=== PATIENT | male | born 1980 | race Caucasian/White ===

== ENCOUNTER 2016-08-18 04:11 | Inpatient (IN) | payer SELFPAY ==
[2016-08-18] VITALS (11 sets, daily range): BP systolic 133–164; BP diastolic 73–96; PULSE 80–137; RESP 20–24; TEMP 97.4–100.6; O2SAT 92–97
[~2016-08-18] VITALS: Ht 175.3 cm; Wt 112.0 kg
[~2016-08-18 04:11] MED LIST: ALLEGR; ENVEGA PO; FLUO0.012 TOP
[2016-08-18] MEDS ORDERED: cefTRIAXone INJ 1,000 MG in SODIUM CHLORIDE 0.9% INJ 100 ML IV ONE (04:30)
[2016-08-18] MEDS ORDERED: SODIUM CHLORIDE 0.9% FLUSH 10 ML FLUSH IVF PRN (04:30)
[2016-08-18] MEDS ORDERED: SODIUM CHLOR 0.9% 1000 ML INJ 1,000 ML IV ONE ×2 (04:30→05:30)
[2016-08-18] MEDS ORDERED: AZITHROMYCIN INJ 500 MG in SODIUM CHLOR 0.9% 250 ML INJ 250 ML IV ONE (04:30)
--- NOTE | 2016-08-18 04:37 | PD ---
HPI Chief Complaint: Respiratory Symptoms Time Seen by Provider: 04:16 Travel History International Travel<30 days: No Contact w/Intl Traveler<30days: No Traveled to known affect area: No History of Present Illness HPI The patient is a 35 year old male who presents to the [facility] emergency department with a history of 4 days of cough, congestion, and dyspnea on exertion. The patient reports having a subjective fever. He reports having chest tightness and wheezing. The patient reports that he was diagnosed with COPD 10 years ago. He reports that he's been smoking cigarettes since he was 11 years of age. He reports that he is not currently on any medications as he does not have a primary care doctor or insurance. The patient reports that he continues to smoke one pack of cigarettes per day. The patient also reports that he drinks to 4 packs of beer daily, occasionally liquor. He reports that he has not had an appetite over the last 4 days. He reports that he has not been drinking any alcohol, however he has been increasingly thirsty and drinking a lot of water. He denies having any vomiting but has had nausea. He reports that he is also had diarrhea approximately 2 times per day since yesterday. The patient reports that his cough is productive of yellow sputum. He reports that he feels lightheaded when he walks across the room. The patient denies any history of fever, cough, congestion, neck pain, chest pain, shortness of breath, abdominal pain, vomiting, diarrhea, urinary symptoms, or neurologic symptoms. [facility] Past Medical History Narrative Medical The patient's past medical history is significant for COPD, tobacco abuse, alcohol abuse, history of anxiety disorder, history of bipolar disorder, history of acid reflux and a history of hypertension, history of cardiomegaly. Bipolar Disorder: Yes Anxiety: Yes Depression: Yes COPD: Yes Diminished Hearing: No GERD: Yes Hypertension: Yes Psychiatric: Yes Past Surgical History Narrative Surgical The patient's past surgical history is significant for a right sided hernia repair, appendectomy. Abdominal Surgery: Yes (RIGHT HERNIA REPAIR) Appendectomy: Yes Social History Alcohol Use: Yes (6- BEERS + 2 MIXED DRINKS ) Tobacco Use: Yes (1 PPD) Substance Use: No Allergies-Medications (Allergen,Severity, Reaction): Coded Allergies: Penicillin (Verified Allergy, Severe, UNKNOWN, 08/18/16) Reported Meds & Prescriptions Reported Meds & Active Scripts Active No Active Prescriptions or Reported Medications Review of Systems Except as stated in HPI: all other systems reviewed are Neg General / Constitutional: Positive: Fever Eyes: No: Visual changes HENT: Positive: Lightheadedness, Rhinorrhea, Congestion, No: Headaches Cardiovascular: Positive: Chest Pain or Discomfort (chest tightness), Dyspnea on exertion Respiratory: Positive: Cough, Shortness of Breath Gastrointestinal: Positive: Nausea, Diarrhea, No: Vomiting, Abdominal Pain, Hematemesis, Hematochezia, Constipation, Changes in Bowel Habits, Indigestion, Loss of Appetite Genitourinary: No: Dysuria Musculoskeletal: Positive: Myalgias, No: Pain Skin: No Rash Neurologic: Positive: Dizziness, No: Weakness, Focal Abnormalities, Change in Mentation, Slurred Speech, Sensory Disturbance Psychiatric: No: Depression Endocrine: No: Polydipsia Hematologic/Lymphatic: No: Easy Bruising Physical Exam Narrative General: The patient is a well-developed well-nourished male, slightly short of breath appearing on arrival. The patient is tremulous. Head and Neck exam: Head is normocephalic atraumatic. Eyes: EOMI, pupils are equal round and reactive to light. Nose: Midline septum with pink mucous membranes Mouth: Dentition unremarkable. Moist mucus membranes. Posterior oropharynx is not erythematous. No tonsillar hypertrophy. Uvula midline. Airway patent. Neck: No palpable lymphadenopathy. No nuchal rigidity. No thyromegaly. Cardiovascular: Sinus tachycardia in the 120s to 130s without murmurs, gallops, or rubs. No pulse deficit to the extremities and simultaneous auscultation and palpation of his radial artery. Lungs: Expiratory wheezes are audible throughout bilateral lung cuevas posteriorly and anteriorly. The patient has no conversational dyspnea. The patient en route to this facility was given 125 mg of Solu-Medrol, and albuterol nebulizer treatments 2. Abdomen: Soft, without tenderness to palpation in all 4 quadrants of the abdomen. No guarding, rebound, or rigidity. No tenderness on palpation of McBurney's point , normal bowel sounds are audible. Negative Daingerfield sign. Extremities: No clubbing, cyanosis, or edema. 2+ pulses in all 4 extremities. tenderness on palpation. Back: No costovertebral angle tenderness to palpation. Neurologic Exam: Cranial nerves 2-12 were intact on exam. Strength is 5/5 in all 4 extremities. No sensory deficits noted. Skin Exam: No rash noted. Intact skin that is warm and dry. Data Data Last Documented VS Vital Signs Date Time Temp Pulse Resp B/P Pulse Ox O2 Delivery O2 Flow Rate FiO2 08/18/16 06:33 100.6 08/18/16 04:45 94 Nasal Cannula 2 08/18/16 04:13 137 24 164/96 Orders Complete Blood Count With Diff (08/18/16 04:29) Comprehensive Metabolic Panel (08/18/16 04:29) B-Type Natriuretic Peptide (08/18/16 04:29) Act Partial Throm Time (Ptt) (08/18/16 04:29) Prothrombin Time / Inr (Pt) (08/18/16 04:29) Magnesium (Mg) (08/18/16 04:29) Ckmb (Isoenzyme) Profile (08/18/16 04:29) Troponin I (08/18/16 04:29) Urinalysis - C+S If Indicated (08/18/16 04:29) Influenzae A/B Antigen (08/18/16 04:29) Blood Culture (08/18/16 04:29) Iv Access Insert/Monitor (08/18/16 04:29) Electrocardiogram (08/18/16 04:29) Ecg Monitoring (08/18/16 04:29) Oximetry (08/18/16 04:29) Oxygen Administration (08/18/16 04:29) Chest, Single Ap (08/18/16 04:29) Ct Pulmonary Angiogram (08/18/16 04:29) Sodium Chloride 0.9% Flush (Ns Flush) (08/18/16 04:30) Albuterol-Ipratropium Neb (Duoneb Neb) (08/18/16 04:30) Ceftriaxone Inj (Rocephin Inj) (08/18/16 04:30) Azithromycin Inj (Zithromax Inj) (08/18/16 04:30) Sodium Chlor 0.9% 1000 Ml Inj (Ns 1000 M (08/18/16 04:30) Sputum Culture And Gram Stain (08/18/16 04:34) Lactic Acid Sepsis Protocol (08/18/16 04:37) Lorazepam Inj (Ativan Inj) (08/18/16 04:45) CKMB (08/18/16 04:34) CKMB% (08/18/16 04:34) Sodium Chlor 0.9% 1000 Ml Inj (Ns 1000 M (08/18/16 05:30) Iohexol 350 Inj (Omnipaque 350 Inj) (08/18/16 05:50) Potassium Chloride (Kcl) (08/18/16 06:30) Admit Order (Ed Use Only) (08/18/16 06:24) Admit To Inpatient (08/18/16 ) Vital Signs (Adult) Q4H (08/18/16 06:25) Activity Oob Ad Elizabeth (08/18/16 06:25) Intake + Output DAHLIA.QSHIFT (08/18/16 06:25) Diet Regular Basic (08/18/16 Breakfast) Sodium Chloride 0.9% Flush (Ns Flush) (08/18/16 06:30) Sodium Chloride 0.9% Flush (Ns Flush) (08/18/16 09:00) Acetaminophen (Tylenol) (08/18/16 06:30) Ondansetron Inj (Zofran Inj) (08/18/16 06:30) Naloxone Inj (Narcan Inj) (08/18/16 06:30) Labs Laboratory Tests Test 08/18/16 08/18/16 04:34 04:35 White Blood Count 17.6 TH/MM3 Red Blood Count 4.43 MIL/MM3 Hemoglobin 13.9 GM/DL Hematocrit 40.3 % Mean Corpuscular Volume 91.0 FL Mean Corpuscular Hemoglobin 31.5 PG Mean Corpuscular Hemoglobin 34.6 % Concent Red Cell Distribution Width 12.7 % Platelet Count 200 TH/MM3 Mean Platelet Volume 9.6 FL Neutrophils (%) (Auto) 72.9 % Lymphocytes (%) (Auto) 15.2 % Monocytes (%) (Auto) 11.2 % Eosinophils (%) (Auto) 0.1 % Basophils (%) (Auto) 0.6 % Neutrophils # (Auto) 12.8 TH/MM3 Lymphocytes # (Auto) 2.7 TH/MM3 Monocytes # (Auto) 2.0 TH/MM3 Eosinophils # (Auto) 0.0 TH/MM3 Basophils # (Auto) 0.1 TH/MM3 CBC Comment AUTO DIFF Differential Total Cells 100 Counted Neutrophils % (Manual) 50 % Band Neutrophils % 24 % Lymphocytes % 20 % Monocytes % 6 % Neutrophils # (Manual) 13.0 TH/MM3 Differential Comment FINAL DIFF MANUAL Dohle Bodies PRESENT Platelet Estimate NORMAL Platelet Morphology Comment NORMAL Prothrombin Time 11.2 SEC Prothromb Time International 1.0 RATIO Ratio Activated Partial 30.1 SEC Thromboplast Time Urine Color ORANGE Urine Turbidity CLEAR Urine pH 6.5 Urine Specific [place] 1.027 Urine Protein 100 mg/dL Urine Glucose (UA) NEG mg/dL Urine Ketones 80 mg/dL Urine Occult Blood MOD Urine Nitrite NEG Urine Bilirubin NEG Urine Urobilinogen 8.0 MG/DL Urine Leukocyte Esterase NEG Urine RBC 12 /hpf Urine WBC 4 /hpf Urine Squamous Epithelial <1 /hpf Cells Urine Mucus MOD /lpf Microscopic Urinalysis Comment CULT NOT INDICATED Sodium Level 131 MEQ/L Potassium Level 3.3 MEQ/L Chloride Level 97 MEQ/L Carbon Dioxide Level 25.1 MEQ/L Anion Gap 9 MEQ/L Blood Urea Nitrogen 6 MG/DL Creatinine 0.96 MG/DL Estimat Glomerular Filtration 90 ML/MIN Rate Random Glucose 120 MG/DL Calcium Level 8.9 MG/DL Magnesium Level 2.2 MG/DL Total Bilirubin 1.4 MG/DL Aspartate Amino Transf 29 U/L (AST/SGOT) Alanine Aminotransferase 23 U/L (ALT/SGPT) Alkaline Phosphatase 87 U/L Total Creatine Kinase 589 U/L Creatine Kinase MB 2.5 NG/ML Creatine Kinase MB % 0.4 % Troponin I LESS THAN 0.02 NG/ML B-Type Natriuretic Peptide 19 PG/ML Total Protein 8.0 GM/DL Albumin 3.4 GM/DL Lactic Acid Level 1.3 mmol/L MDM Medical Decision Making Medical Screen Exam Complete: Yes Emergency Medical Condition: Yes Medical Record Reviewed: Yes Interpretation(s) Last Impressions Chest X-Ray 08/18/16428 Signed Impressions: Service Date/Time: Thursday, August 18, 2016 04:43 - CONCLUSION: No acute disease. Jesse Cerna Jr., MD CT Angiography [id number]/18/16428 Signed Impressions: Service Date/Time: Thursday, August 18, 2016 05:45 - CONCLUSION: 1. There is weak opacification of the pulmonary arteries with the contrast bolus. This limits the evaluation of the smaller branches. No pulmonary emboli seen. 2. Tree in bud type appearance involving the upper lobes bilaterally consistent with an infectious etiology. 3. 5 mm pulmonary nodule within the right upper lobe. Current guidelines suggest a repeat CT of the thorax in 12 months to document stability. Jesse Cerna Jr., MD Differential Diagnosis COPD exacerbation, versus pulmonary embolism, versus pneumonia, versus influenza , versus alcohol withdrawal syndrome, versus anxiety disorder Narrative Course During the course of the patients emergency department visit, the patients history, examination, and differential diagnosis were reviewed with the patient. The patient had IV access obtained and blood work sent for analysis. The patient was placed on a qa consultant with oximetry and blood pressure monitoring. An EKG was done on arrival. The patient's EKG shows a sinus tachycardia with a heart rate of 127, QRS duration is 90 ms, QTC 410 ms, nonspecific T-wave abnormalities, no acute ST segment elevation or depression. A chest x-ray has been. The patient's O2 saturation on room air is noted to be 92%. The patient was placed on 2 L supplemental nasal cannula oxygen. The patient was initially provided normal saline 1 L IV fluid bolus, Ativan 1 mg IV, Rocephin 1 g IV, Zithromax 500 IV. The patient will be given a DuoNeb 2. The patients laboratory studies were reviewed and remarkable for a white count of 17.6, hemoglobin 13.9, platelets 200 with 72.9 neutrophils, lymphocytes 11.2 , CMP is remarkable for sodium of 131, potassium 3.3 which will be supplemented orally, BUN 6, glucose 120, total bilirubin 1.4. CPK 589 with an MB percent 0.4 , troponin I less than 0.02, BNP 19, lactic acid is 1.3, PT 11.2, PTT 30.1, urinalysis shows 100 protein 80 ketones moderate occult blood 8 urobilinogen, RBCs 12. Radiology studies were reviewed and remarkable for a chest x-ray that shows no acute abnormality. CTA to rule out PE shows that there is weak opacification of the pulmonary arteries with the contrast bolus. This limits the evaluation of the smaller branches. No pulmonary emboli are seen, tree in bud type appearance involving the upper lobes bilaterally consistent with an infectious etiology, 5 mm pulmonary nodule within the right upper lobe. Current guidelines suggest repeating a CT scan of the thorax and 12 months to document stability. The patient will be admitted to the hospital for continued evaluation and treatment of his COPD exacerbation. The patients results were discussed with the patient, including the plan of care. I explained that further testing and/ or monitoring is indicated based on the patients history, examination, and/ or laboratory findings. Therefore, I recommended admission for additional evaluation. The patient expressed understanding and was agreeable with this plan. The patient was admitted to the hospital in stable condition and [facility] Sepsis Criteria SIRS Criteria (2 or more): Heart rate over 90, RR > 20 or PaCO2 < 32 Physician Communication Physician Communication The patient's case was discussed with Dr. Davis he did agree to admit the patient for further evaluation and treatment at this time. Diagnosis Primary Impression: COPD exacerbation Admitting Information Admitting Physician Requests: Admit Scripts No Active Prescriptions or Reported Meds America Cintron MD August 18, 2016 04:37
[2016-08-18] MEDS ORDERED: LORazepam 2 MG/ML VIAL IV PUSH ONE (04:45)
[2016-08-18 04:54] LABS: AUTOMATED NEUTROPHIL # 12.8 TH/MM3 (1.8-7.7); BASOPHIL # 0.1 TH/MM3 (0-0.2); BASOPHIL % 0.6 % (0.0-2.0); EOSINOPHIL % 0.1 % (0.0-4.0); HEMATOCRIT 40.3 % (39.0-51.0); LYMPH % 15.2 % (9.0-44.0); LYMPHOCYTE # 2.7 TH/MM3 (1.0-4.8); MEAN CORPUSCULAR HEMOGLOBIN 31.5 PG (27.0-34.0); MEAN CORPUSCULAR HGB CONC 34.6 % (32.0-36.0); MONO % 11.2 % (0.0-8.0); NEUT % 72.9 % (16.0-70.0); PLATELET COUNT 200 TH/MM3 (150-450); RED BLOOD COUNT 4.43 MIL/MM3 (4.50-5.90); RED CELL DISTRIBUTION WIDTH 12.7 % (11.6-17.2); WHITE BLOOD COUNT 17.6 TH/MM3 (4.0-11.0)
[2016-08-18 04:56] LABS: HEMO FLAGS AUTO DIFF
[2016-08-18 04:59] LABS: BLOOD, URINE MOD (NEG); COMMENT (UR) CULT NOT INDICATED; CULTURE IF INDICATED CULT NOT INDICATED; GLUCOSE,URINE NEG (NEG); KETONE, URINE 80 mg/dL (NEG); MUCUS URINE MOD /lpf (OCC); NITRITE,URINE NEG (NEG); PH, URINE 6.5 (5.0-8.5); SQUAMOUS EPITHELIAL CELL URINE <1 /hpf (0-5); URINE COLOR ORANGE (YELLW/STRAW)
[2016-08-18] MEDS: RESP: ALBUTEROL 2.5 MG/IPRATROPIUM 0.5 MG NEB (SCH) INH ×5 (05:02→20:50)
[2016-08-18 05:05] LABS: APTT (PATIENT) 30.1 SEC (24.3-30.1); PROTHROMBIN TIME - PATIENT 11.2 SEC (9.8-11.6)
[2016-08-18 05:07] LABS: ALT (GPT) 23 U/L (12-78); ANION GAP 9 MEQ/L (5-15); AST (GOT) 29 U/L (15-37); BICARBONATE 25.1 MEQ/L (21.0-32.0); BLOOD UREA NITROGEN 6 MG/DL (7-18); CHLORIDE 97 MEQ/L (98-107); GLOMERULAR FILTRATION RATE 90 ML/MIN (>89); MAGNESIUM 2.2 MG/DL (1.5-2.5); POTASSIUM 3.3 MEQ/L (3.5-5.1); SODIUM (NA) 131 MEQ/L (136-145)
[2016-08-18 05:11] LABS: ALKALINE PHOSPHATASE 87 U/L (45-117); CREATINE KINASE 589 U/L (39-308); TOTAL BILIRUBIN ADULT 1.4 MG/DL (0.2-1.0)
--- NOTE | 2016-08-18 05:11 | RADRPT ---
EXAM DATE/TIME: 08/18/2016 04:43 [facility] COMPARISON: CHEST SINGLE AP, August 25, 2009, 19:04. INDICATIONS : Short of breath. MEDICAL HISTORY : None. SURGICAL HISTORY : None. ENCOUNTER: Initial ACUITY: 1 day PAIN SCORE: 0/10 LOCATION: Bilateral chest FINDINGS: 2 portable frontal views of the chest show the lungs to be clear. Heart is at the upper limits of nor mal in terms of size. No infiltrates or effusions. Scoliotic spine. CONCLUSION: No acute disease. Jesse Cerna Jr., MD on August 18, 2016 at 5:07 Board Certified Radiologist. This report was verified electronically.
[2016-08-18 05:23] LABS: CKMB 2.5 NG/ML (0.5-3.6)
[2016-08-18] MEDS ORDERED: IOHEXOL 350 MG/ML 10 ML VIAL (for RAD DIAG) IV ONE (05:50)
[2016-08-18 06:00] LABS: BANDS 24 % (0-6); DOHLE BODIES PRESENT (NONE SEEN); PLATELET ESTIMATE SMEAR NORMAL (NORMAL); PLATELET MORPHOLOGY NORMAL (NORMAL); POLYS (SEG NEUTROPHILS) 50 % (16-70); SCAN/DIFF FINAL DIFF MANUAL; WBC DIFF SAMPLE 100
--- NOTE | 2016-08-18 06:03 | RADRPT ---
EXAM DATE/TIME: 08/18/2016 05:45 [facility] COMPARISON: No previous studies available for comparison. INDICATIONS : Shortness of breath with cough and chest tightness. IV CONTRAST: 73 cc Omnipaque 350 (iohexol) IV RADIATION DOSE: 23.56 CTDIvol (mGy) MEDICAL HISTORY : Hypertension. Chronic obstructive pulmonary disease. Gastroesophageal reflux disease. SURGICAL HISTORY : Right hernia repair. ENCOUNTER: Initial ACUITY: 4 - 6 days PAIN SCALE: 6/10 LOCATION: Bilateral chest TECHNIQUE: Volumetric scanning of the chest was performed using a pulmonary embolism protocol MIP images were re constructed. Using automated exposure control and adjustment of the mA and/or kV according to patien t size, radiation dose was kept as low as reasonably achievable to obtain optimal diagnostic quality images. FINDINGS: PULMONARY ARTERIES: Weak opacification of the pulmonary arteries. This limits the sensitivity of the more peripheral bran ches. No filling defects identified to suggest pulmonary emboli. LUNGS: Tree in bud appearance involving the upper lobes bilaterally. No bronchiectasis. 5 mm smoothly margin ated pulmonary nodule within the right upper lobe. PLEURAE: There is no pleural thickening or pleural effusion. MEDIASTINUM: There is good visualization of the great vessels of the middle mediastinum. No evidence of mediastin al or hilar adenopathy/mass. MUSCULOSKELETAL: Within normal limits for patient age. MISCELLANEOUS: The visualized upper abdominal organs demonstrate no acute abnormality. CONCLUSION: 1. There is weak opacification of the pulmonary arteries with the contrast bolus. This limits the vesta luation of the smaller branches. No pulmonary emboli seen. 2. Tree in bud type appearance involving the upper lobes bilaterally consistent with an infectious et iology. 3. 5 mm pulmonary nodule within the right upper lobe. Current guidelines suggest a repeat CT of the t horax in 12 months to document stability. Jesse Cerna Jr., MD on August 18, 2016 at 5:58 Board Certified Radiologist. This report was verified electronically.
[2016-08-18] MEDS ORDERED: ONDANSETRON HCL 4 MG/2 ML VIAL IVP PRN (06:30)
[2016-08-18] MEDS ORDERED: POTASSIUM CHLORIDE 20 MEQ CONTROLLED RELEASE TAB PO ONE (06:30)
[2016-08-18] MEDS ORDERED: NALOXONE HCL 0.4 MG/ML AMP IV PRN (06:30)
[2016-08-18] MEDS ORDERED: SODIUM CHLORIDE 0.9% FLUSH 10 ML FLUSH IV FLUSH PRN (06:30)
[2016-08-18] MEDS: ACETAMINOPHEN 325 MG TAB PO PRN (06:35)
--- NOTE | 2016-08-18 08:49 | HHI.HP ---
[facility] Service [facility] Primary Care Physician No Primary Care Physician Admission Diagnosis COPD exacerbation Diagnoses: (1) COPD exacerbation Diagnosis: Principal (2) Hypokalemia (3) Hyponatremia (4) Leukocytosis (5) Tobacco abuse (6) GERD (gastroesophageal reflux disease) (7) Pulmonary nodule, right (8) Alcohol abuse (9) Sepsis Chief Complaint: Cough, dyspnea Travel History International Travel<30 Days: No Contact w/Intl Traveler <30 Da: No Traveled to Known Affected Are: No Sepsis Criteria SIRS Criteria (2 or more): RR > 20 or PaCO2 < 32, WBC > 51973, < 4000 or > 10 % bands Sepsis Criteria (SIRS+source): Infect source susp/known Criteria Outcome: Meets sepsis criteria History of Present Illness The patient is a 35-year-old male who presented to the emergency department with 3-4 days of worsening dyspnea. He states that he got to the point where walking down the [place] to the bathroom made him feel like he could not catch his breath. He felt like his "suffocating". Denies chest pain, but does have some rib cage pain from coughing and labored breathing. States that the treatment he received in the ER helped significantly. He does still feel short of breath. He has been having fever, chills, night sweats. He has had diarrhea over the past couple days. He was diagnosed with COPD about 10 years ago, but has not followed up and has not been on any medications. He does not take medications for his blood pressure. He stopped taking psychiatric medications about a year ago and states "I feel better than I ever have". Review of Systems Constitutional: COMPLAINS OF: Fever, Chills, Night Sweats Eyes: DENIES: Blurred vision, Vision loss Ears, nose, mouth, throat: DENIES: Hearing loss Respiratory: COMPLAINS OF: Cough, Wheezing, Sputum production, Shortness of breath Cardiovascular: COMPLAINS OF: Dyspnea on Exertion, Lower Extremity Edema, DENIES: Chest pain, Palpitations Gastrointestinal: COMPLAINS OF: Diarrhea, DENIES: Abdominal pain, Constipation , Nausea, Vomiting Genitourinary: DENIES: Urinary frequency, Urinary incontinence, Urgency, Hematuria, Dysuria, Nocturia Musculoskeletal: DENIES: Joint pain, Muscle aches Integumentary: DENIES: Pruritus, Rash Hematologic/lymphatic: DENIES: Bruising Neurologic: DENIES: Headache Past Family Social History Past Medical History COPD Hypertension GERD Anxiety/depression Bipolar disorder Past Surgical History Right inguinal hernia repair Reported Medications None Allergies: Coded Allergies: Penicillin (Verified Allergy, Severe, UNKNOWN, 08/18/16) Family History Mother has heart disease. Hypertension Social History Smokes one pack per day and has done so since age 11. Drinks 6 beers and 2 mixed drinks per day. Denies illicit drug use in the past few years. Has remote history of cocaine use. Denies IV drug abuse. Physical Exam Vital Signs Vital Signs Date Time Temp Pulse Resp B/P Pulse Ox O2 Delivery O2 Flow Rate FiO2 08/18/16 07:50 99.6 112 22 159/74 94 Nasal Cannula 3 08/18/16 07:50 22 08/18/16 06:46 112 22 159/73 95 Nasal Cannula 2 08/18/16 06:33 100.6 08/18/16 04:45 94 Nasal Cannula 2 08/18/16 04:45 92 Room Air 08/18/16 04:13 99.0 137 24 164/96 93 Physical Exam GENERAL: Obese male in no acute distress. HEENT: Normocephalic, atraumatic. Pupils equal, round and reactive. Extraocular movements intact. No scleral icterus. No injection or drainage. Oropharynx is clear. Mucous membranes are moist. CARDIOVASCULAR: Regular rate and rhythm without murmurs, gallops, or rubs. RESPIRATORY: Diffuse wheeze. Breathing is somewhat labored. GASTROINTESTINAL: Abdomen soft, non-tender, nondistended. EXTREMITIES: No lower extremity edema. No calf tenderness. PSYCH: Alert and oriented x 3. Laboratory Laboratory Tests Test 08/18/16 08/18/16 04:34 04:35 White Blood Count 17.6 Red Blood Count 4.43 Hemoglobin 13.9 Hematocrit 40.3 Mean Corpuscular Volume 91.0 Mean Corpuscular Hemoglobin 31.5 Mean Corpuscular Hemoglobin 34.6 Concent Red Cell Distribution Width 12.7 Platelet Count 200 Mean Platelet Volume 9.6 Neutrophils (%) (Auto) 72.9 Lymphocytes (%) (Auto) 15.2 Monocytes (%) (Auto) 11.2 Eosinophils (%) (Auto) 0.1 Basophils (%) (Auto) 0.6 Neutrophils # (Auto) 12.8 Lymphocytes # (Auto) 2.7 Monocytes # (Auto) 2.0 Eosinophils # (Auto) 0.0 Basophils # (Auto) 0.1 CBC Comment AUTO DIFF Differential Total Cells 100 Counted Neutrophils % (Manual) 50 Band Neutrophils % 24 Lymphocytes % 20 Monocytes % 6 Neutrophils # (Manual) 13.0 Differential Comment FINAL DIFF MANUAL Dohle Bodies PRESENT Platelet Estimate NORMAL Platelet Morphology Comment NORMAL Prothrombin Time 11.2 Prothromb Time International 1.0 Ratio Activated Partial 30.1 Thromboplast Time Urine Color ORANGE Urine Turbidity CLEAR Urine pH 6.5 Urine Specific [place] 1.027 Urine Protein 100 Urine Glucose (UA) NEG Urine Ketones 80 Urine Occult Blood MOD Urine Nitrite NEG Urine Bilirubin NEG Urine Urobilinogen 8.0 Urine Leukocyte Esterase NEG Urine RBC 12 Urine WBC 4 Urine Squamous Epithelial <1 Cells Urine Mucus MOD Microscopic Urinalysis Comment CULT NOT INDICATED Sodium Level 131 Potassium Level 3.3 Chloride Level 97 Carbon Dioxide Level 25.1 Anion Gap 9 Blood Urea Nitrogen 6 Creatinine 0.96 Estimat Glomerular Filtration 90 Rate Random Glucose 120 Calcium Level 8.9 Magnesium Level 2.2 Total Bilirubin 1.4 Aspartate Amino Transf 29 (AST/SGOT) Alanine Aminotransferase 23 (ALT/SGPT) Alkaline Phosphatase 87 Total Creatine Kinase 589 Creatine Kinase MB 2.5 Creatine Kinase MB % 0.4 Troponin I LESS THAN 0.02 B-Type Natriuretic Peptide 19 Total Protein 8.0 Albumin 3.4 Lactic Acid Level 1.3 Date/Time Procedure Status Source Growth 08/18/16 04:39 Aerobic Blood Culture Received Blood Peripheral Pending 08/18/16 04:39 Anaerobic Blood Culture Received Blood Peripheral Pending 08/18/16 04:34 Influenza Types A,B Antigen (LUISA) - Final Complete Nasal Aspirate NEGATIVE FOR FLU A AND B ANTIGEN.... 08/18/16 04:34 Gram Stain - Final Resulted Sputum Expectorated Sputum 08/18/16 04:34 Sputum Culture Resulted Sputum Expectorated Sputum Pending Result Diagram: 08/18/16 0434 08/18/16 0434 Imaging Last Impressions Chest X-Ray 08/18/16 0429 Signed Impressions: Service Date/Time: Thursday, August 18, 2016 04:43 - CONCLUSION: No acute disease. Jesse Cerna Jr., MD CT Angiography 08/18/16 0429 Signed Impressions: Service Date/Time: Thursday, August 18, 2016 05:45 - CONCLUSION: 1. There is weak opacification of the pulmonary arteries with the contrast bolus. This limits the evaluation of the smaller branches. No pulmonary emboli seen. 2. Tree in bud type appearance involving the upper lobes bilaterally consistent with an infectious etiology. 3. 5 mm pulmonary nodule within the right upper lobe. Current guidelines suggest a repeat CT of the thorax in 12 months to document stability. Jesse Cerna Jr., MD Assessment and Plan Assessment and Plan 1. COPD exacerbation: Continue steroids, bronchodilators, supplemental oxygen. Consult pulmonology. 2. Pulmonary nodule seen on CT: Radiology recommends follow-up CT in one year. 3. Hypertension: Not currently on medications. Vasotec as needed. Start lisinopril. 4. Tobacco abuse: Counseled to quit smoking. 5. Alcohol abuse: Patient counseled. Last drink was about 4 days ago. Monitor for withdrawal symptoms. 6. DVT prophylaxis: Lovenox. 7. Sepsis: Meets criteria with tachypnea, tachycardia, leukocytosis. Source is respiratory. Continue antibiotics, IV fluids. 8. Cardiomegaly: Patient reports being told in the past that his heart was enlarged. He has multiple risk factors for cardiac disease including smoking, family history, obesity, uncontrolled hypertension, and reported elevated cholesterol. He has been having dyspnea on exertion for the past few years, and it has worsened significantly in the past week. Check echocardiogram. Physician Certification 2 Midnight Certification Type: Admission for Inpatient Services Order for Inpatient Services The services are ordered in accordance with Medicare regulations or non- Medicare payer requirements, as applicable. In the case of services not specified as inpatient-only, they are appropriately provided as inpatient services in accordance with the 2-midnight benchmark. Estimated LOS (days): 3 days is the estimated time the patient will need to remain in the hospital, assuming treatment plan goals are met and no additional complications. Post-Hospital Plan: Fernando Klein MD August 18, 2016 08:49
[2016-08-18] MEDS ORDERED: RESP: ALBUTEROL 2.5 MG/3 ML NEB (PRN) INH (09:15)
[2016-08-18] MEDS ORDERED: ENALAPRILAT 1.25 MG/ML VIAL IV PUSH PRN (09:15)
[2016-08-18] MEDS ORDERED: LORazepam 2 MG TAB PO PRN (09:30)
[2016-08-18] MEDS ORDERED: FLUMAZENIL 0.5 MG/5 ML VIAL IV PUSH PRN (09:30)
[2016-08-18] MEDS ORDERED: LORazepam 2 MG/ML VIAL IV PUSH PRN ×3 (09:30)
[2016-08-18] MEDS: SODIUM CHLORIDE 0.9% FLUSH 10 ML FLUSH IV FLUSH SCH ×2 (09:46→21:00)
[2016-08-18] MEDS: LISINOPRIL 10 MG TAB PO SCH (09:48)
[2016-08-18] MEDS: ENOXAPARIN SODIUM 40 MG/0.4 ML SYRINGE SQ SCH (09:48)
[2016-08-18] MEDS: methylPREDNISolone SOD SUCC 125 MG/2 ML VIAL IVP SCH ×3 (09:49→23:25)
[2016-08-18] MEDS: NS + KCL 20 MEQ INJ 1,000 ML IV SCH ×2 (09:55→23:26)
[2016-08-18] MEDS ORDERED: PROPOFOL 200 MG/20 ML AMP IV ONE (12:00)
--- NOTE | 2016-08-18 15:38 | EC ---
Study Study Date:08/18/2016 STUDY CONCLUSIONS SUMMARY LEFT VENTRICLE: The cavity size was normal. Wall thickness was normal. Systolic function was normal. The estimated ejection fraction was in the range of 55% to 60%. Wall motion was normal; there were no regional wall motion abnormalities. If LV function is below 40, please consider prescribing an ACEI or ARB or document rationale for non-use. PROCEDURE DATA STUDY STATUS: Elective. Procedure: Transthoracic echocardiography. Image quality was good. Scanning was performed from the parasternal, apical, and subcostal acoustic windows. Study completion: The patient tolerated the procedure well. Transthoracic echocardiography. M-mode, complete 2D, complete spectral Doppler, and color Doppler. Patient status: Inpatient. CARDIAC ANATOMY LEFT VENTRICLE: The cavity size was normal. Wall thickness was normal. Systolic function was normal. The estimated ejection fraction was in the range of 55% to 60%. Wall motion was normal; there were no regional wall motion abnormalities. AORTIC VALVE: Trileaflet; normal thickness leaflets. Doppler: Transvalvular velocity was within the normal range. There was no stenosis. No regurgitation. Peak gradient: 13mm Hg (S). AORTA: Aortic root: The aortic root was normal in size. MITRAL VALVE: Structurally normal valve. Doppler: Transvalvular velocity was within the normal range. There was no evidence for stenosis. No regurgitation. Peak gradient: 3mm Hg (D). LEFT ATRIUM: The atrium was normal in size. RIGHT VENTRICLE: The cavity size was normal. Wall thickness was normal. PULMONIC VALVE: Doppler: Transvalvular velocity was within the normal range. There was no evidence for stenosis. No regurgitation. TRICUSPID VALVE: Structurally normal valve. Doppler: Transvalvular velocity was within the normal range. No regurgitation. PULMONARY ARTERY: The main pulmonary artery was normal-sized. Systolic pressure was within the normal range. RIGHT ATRIUM: The atrium was normal in size. PERICARDIUM: There was no pericardial effusion. SYSTEMIC VEINS: Inferior vena cava: The vessel was normal in size. BASIC MEASUREMENTS ADULT Normal Left ventricle LV internal dimension, ED, chordal level, 51.9 mm 43-52 PLAX LV internal dimension, ES, chordal level, *38.6 mm 23-38 PLAX Fractional shortening, chordal level, PLAX *26 % >29 LV posterior wall thickness, ED 8.59 mm IVS/LVPW ratio, ED 1.26 <1.3 Ventricular septum Septal thickness, ED 10.8 mm Left atrium Anterior-posterior dimension 32 mm Right ventricle RV internal dimension, ED, PLAX 24.7 mm 19-38 DOPPLER MEASUREMENTS ADULT Normal Aortic valve Peak velocity, S 182 cm/s Peak gradient, S 13 mm Hg Mitral valve Peak E-wave velocity 88.8 cm/s Peak A-wave velocity 102 cm/s Peak gradient, D 3 mm Hg Peak E/A ratio 0.9 Tricuspid valve Regurgitant peak velocity 182 cm/s Peak RV-RA gradient, S 13 mm Hg Maximal regurgitant velocity 182 cm/s LEGEND: Mean values are shown as u=mean value. Asterisk (*) espinoza values outside specified normal range. Amended Ramona Sepulveda [id number]
--- NOTE | 2016-08-18 15:51 | EKG ---
Date Performed: 08/18/2016 Time Performed: 04:31:45 PTAGE: 35 years EKG: SINUS TACHYCARDIA NONSPECIFIC T-WAVE ABNORMALITY Compared to prior tracing no significant c hange ABNORMAL RHYTHM ECG INTERPRETATION BASED ON A DEFAULT AGE OF 40 YEARS PREVIOUS TRACING : 08/25/2009 19.30 DOCTOR: Milton Hernandez Interpretating Date/Time 08/18/2016 15:47:01
[2016-08-18] MEDS: LORazepam 2 MG/ML VIAL IV PUSH PRN (23:27)
--- NOTE | 2016-08-18 23:58 | MB ---
cc: VitoANALILIA BARNETT DATE OF : [birth year] DATE OF CONSULTATION: 08/18/2016 REASON FOR CONSULTATION: Respiratory distress and COPD. HISTORY OF PRESENT ILLNESS: This is a 35 year-old white male who has had a history of chronic cough and wheezing, has been experiencing increasing shortness of breath over the past 4-5 days. The patient apparently was having shortness of breath with minimal activity and recently traveled from distant, and was running some low grade fevers. He was also having coughing spells and chest congestion with wheezing. Since yesterday, the patient's symptoms have worsened. He could not catch his breath at all and almost passed out on getting to the bathroom on two occasions, and thus 911 was called and the patient was brought to the emergency room where he had a chest x-ray followed by a CT scan. He was subsequently admitted with a diagnosis of sepsis and pneumonia. The patient's O2 saturation had dropped into the 80s. He was placed on oxygen by nasal cannula at [address] scan of the chest showed a 3.5 millimeter pulmonary nodule in the right upper lobe as well as tree-in-bud appearance involving the upper lobes bilaterally suggesting chronic disease with bronchiectasis. He has been diaphoretic and complains of wheezing and chest tightness but denies nausea, vomiting or aspiration. HABITS The patient smokes half to one-pack per day and has done so for over 25 years. No significant alcohol. No illicit drug use. The patient has had no other major medical illnesses. PAST HISTORY 1. History for hypertension 2. Gastroesophageal reflux 3. Bipolar disorder. 4. Right inguinal hernia repair. ALLERGIES PENICILLIN. FAMILY HISTORY Significant for heart disease in his mother. REVIEW OF SYSTEMS: The patient has had some weight gain. He has dizziness, postnasal drip, hoarseness and wheezing. He has epigastric distress. No nausea, vomiting. There is no urinary symptoms, leg or calf muscle pain. He does have some joint pain of the extremities. No skin lesions. The remainder of the review of systems is negative. PHYSICAL EXAMINATION This is a moderately overweight male in mild distress. VITAL SIGNS: Blood pressure 130/78, pulse 88, respirations of 18, temperature 98. HEENT: Normocephalic. Pupils reactive. Tongue is moist. Nasal mucosa erythematous. Throat is injected. Neck: Supple. No venous distension. Trachea midline. No bruits. Chest: Equal movements with distant breath sounds with wheezes throughout both lung cuevas. Prolonged expirations. Heart: The heart sounds are irregular, no S2. No murmur. No S3. Abdomen: Soft, benign. No masses, no organomegaly or tenderness. The bowel sounds are active. Extremities: No edema Reflexes are 1+ with no gross motor deficits. Cranial nerves grossly intact. Rectal: Exam is deferred. IMPRESSION 1. Acute respiratory distress 2. History of chronic bronchitis 3. Asthma 4. Possible atypical infections like AFB or fungal disease 5. Poss Sleep Apnea PLAN The patient will continue with present medications and Rocephin with Zithromax . Cont DuoNeb solution with a nebulizer q.i.d., continue with inhaled steroids. He was also advised to get pulmonary function study . Rpt Chest X ray and Sputum for AFB and Gram stain. May need Bronchoscopy if not improved Thank you for the consultation. MD GUERLINE Rendon/HEMA /11:01 PM /11:34 PM TIERRA
[2016-08-19] VITALS (10 sets, daily range): BP systolic 129–143; BP diastolic 71–86; PULSE 87–110; RESP 18–20; TEMP 96.3–98.6; O2SAT 91–96
[2016-08-19] MEDS: BENZONATATE 100 MG CAP PO PRN ×2 (00:57→21:54)
[2016-08-19] MEDS ORDERED: AZITHROMYCIN INJ 500 MG in SODIUM CHLOR 0.9% 250 ML INJ 250 ML IV SCH (05:00)
[2016-08-19] MEDS: cefTRIAXone INJ 1,000 MG in SODIUM CHLORIDE 0.9% INJ 100 ML IV SCH (05:23)
[2016-08-19] MEDS: LORazepam 2 MG/ML VIAL IV PUSH PRN ×2 (05:25→14:30)
[2016-08-19] MEDS: methylPREDNISolone SOD SUCC 125 MG/2 ML VIAL IVP SCH (05:25)
[2016-08-19] MEDS: RESP: ALBUTEROL 2.5 MG/IPRATROPIUM 0.5 MG NEB (SCH) INH ×3 (05:35→15:20)
[2016-08-19] MEDS: SODIUM CHLORIDE 0.9% FLUSH 10 ML FLUSH IV FLUSH SCH ×2 (07:41→21:00)
[2016-08-19] MEDS: LISINOPRIL 10 MG TAB PO SCH (07:42)
[2016-08-19 07:59] LABS: AUTOMATED NEUTROPHIL # 18.8 TH/MM3 (1.8-7.7); BASOPHIL % 0.2 % (0.0-2.0); HEMATOCRIT 39.5 % (39.0-51.0); LYMPH % 5.1 % (9.0-44.0); MEAN CELL VOLUME 92.8 FL (80.0-100.0); MEAN CORPUSCULAR HEMOGLOBIN 31.8 PG (27.0-34.0); MEAN CORPUSCULAR HGB CONC 34.2 % (32.0-36.0); MONO % 3.1 % (0.0-8.0); NEUT % 91.6 % (16.0-70.0); PLATELET COUNT 217 TH/MM3 (150-450); RED BLOOD COUNT 4.26 MIL/MM3 (4.50-5.90); RED CELL DISTRIBUTION WIDTH 12.4 % (11.6-17.2); WHITE BLOOD COUNT 20.6 TH/MM3 (4.0-11.0)
[2016-08-19 08:10] LABS: HEMO FLAGS AUTO DIFF
--- NOTE | 2016-08-19 08:12 | HHI.PR ---
Subjective Remarks Follow up shortness of breath. Patient seen and examined by myself and Dr. Villegas. Patient lying in bed, still complaints of shortness of breath. On 2 L NC. Patient does admit to diarrhea x 4 days now, states he thinks it happens each time he eats. Denies any recent chills, shortness of breath, nausea or vomiting. Patient expressed concern regarding homosexual lifestyle, unprotected sex and any possibility of obtaining HIV and hepatitis profile, states he has not been checked since 2004. Denies being sexually active at this time, last encounter was 2 months ago. Objective Vitals Vital Signs Date Time Temp Pulse Resp B/P Pulse Ox O2 Delivery O2 Flow Rate FiO2 08/19/16 07:43 97.0 110 20 132/78 91 08/19/16 07:29 93 Nasal Cannula 3.00 08/19/16 05:35 96 Nasal Cannula 3.00 08/19/16 04:15 96.3 88 20 129/84 96 08/19/16 00:00 96.8 87 20 134/82 96 08/18/16 20:00 97.4 80 20 133/73 95 08/18/16 16:00 97.6 92 24 157/79 97 08/18/16 15:18 94 Nasal Cannula 3.00 08/18/16 12:00 97.7 102 20 140/81 94 08/18/16 11:45 95 Nasal Cannula 3.00 08/18/16 08:30 97.9 100 22 139/76 95 I/O 08/18/16 08/18/16 08/18/16 08/19/16 08/19/16 08/19/16 07:00 15:00 23:00 07:00 15:00 23:00 Intake Total 1560 ml 480 ml Output Total 650 ml 675 ml Balance 1560 ml -170 ml -675 ml Intake Oral 1560 ml 480 ml Output Urine Total 650 ml 675 ml # Voids 3 Result Diagram: 08/18/16 0434 08/18/16433 Imaging Last Impressions Chest X-Ray 08/18/16428 Signed Impressions: Service Date/Time: Thursday, August 18, 2016 04:43 - CONCLUSION: No acute disease. Jesse Cerna Jr., MD CT Angiography 08/18/16428 Signed Impressions: Service Date/Time: Thursday, August 18, 2016 05:45 - CONCLUSION: 1. There is weak opacification of the pulmonary arteries with the contrast bolus. This limits the evaluation of the smaller branches. No pulmonary emboli seen. 2. Tree in bud type appearance involving the upper lobes bilaterally consistent with an infectious etiology. 3. 5 mm pulmonary nodule within the right upper lobe. Current guidelines suggest a repeat CT of the thorax in 12 months to document stability. Jesse Cerna Jr., MD Objective Remarks GENERAL: Well-nourished, well-developed patient, lying in bed short of breath on supplemental oxygen. SKIN: Warm and dry. No rash. HEAD: Normocephalic. Atraumatic. EYES: Pupils equal and round. No scleral icterus. No injection or drainage. ENT: No nasal bleeding or discharge. Mucous membranes pink and moist. NECK: Supple. Trachea midline. CARDIOVASCULAR: Regular rate and rhythm. S1, S2 noted. No murmur appreciated. RESPIRATORY: No accessory muscle use. Expiratory wheezing noted throughout anterior and posterior upper and lower lobes. Breath sounds equal bilaterally. GASTROINTESTINAL: Abdomen soft, non-tender, nondistended. Normoactive bowel sounds x4. MUSCULOSKELETAL: No obvious deformities. Extremities without clubbing, cyanosis , or edema. NEUROLOGICAL: Awake and alert. No obvious cranial nerve deficits. Motor grossly within normal limits. 5/5 muscle strength in bilateral upper and lower extremities. Normal speech. PSYCHIATRIC: Appropriate mood and affect; insight and judgment normal. A/P Assessment and Plan Mr. Fragoso is a 35-year-old male with a known history of COPD, significant smoking history, alcohol abuse and hypertension who presented to the ED with complaints of ongoing shortness of breath x 3 days. Meets sepsis criteria with presence of tachycardia, tachypnea and leukocytosis. Dyspnea likely secondary to COPD exacerbation Possibility of PCP or HIV secondary to history of homosexual activity Diarrhea x 4 days - WBC 17.6, awaiting today's 08/19 lab. - Chest x-ray reviewed by me, no acute disease. - Continue supplemental oxygen. - Pulmonology following, appreciate input. - Decrease methylprednisolone 40 mg IV Q6hr. - Continue DuoNebs. - Continue Azithromycin 500 mg IV Q24hr and Rocephin 1 g IV Q24hr. - Start Flagyl 500 mg IV Q8hr. - Consult ID, appreciate input. - Send stool studies including c. difficile and giardia. - Check HIV and Hepatitis profile. Pulmonary nodule, right upper lobe - CT Angiography reviewed by me, weak opacification of the pulmonary arteries with the contrast bolus. This limits the evaluation of the smaller branches. No pulmonary emboli seen. Tree in bud type appearance involving the upper lobes bilaterally consistent with an infectious etiology. 3. 5 mm pulmonary nodule within the right upper lobe. Radiology recommends follow-up CT in one year. Hypertension: Controlled. - Continue Lisinopril. Vasotec PRN. - ECHO reviewed by me, EF 55-60%. Wall thickness and cavity size normal. Systolic function normal. Tobacco abuse: Encouraged cessation. Alcohol abuse: Encourage cessation. DVT prophylaxis: Lovenox. Lexie Villalobos August 19, 2016 08:12 Lexie Villalobos August 19, 2016 08:12
[2016-08-19 08:25] LABS: POTASSIUM 3.9 MEQ/L (3.5-5.1)
[2016-08-19] MEDS ORDERED: metroNIDAZOLE 500 MG INJ 100 ML IV SCH (09:00)
[2016-08-19 09:56] LABS: BANDS 24 % (0-6); METAMYELOCYTES 1 % (0-1); NEUTROPHIL # MANUAL DIFF 19.6 TH/MM3 (1.8-7.7); PLATELET ESTIMATE SMEAR NORMAL (NORMAL); PLATELET MORPHOLOGY NORMAL (NORMAL); POLYS (SEG NEUTROPHILS) 70 % (16-70); SCAN/DIFF FINAL DIFF MANUAL; WBC DIFF SAMPLE 100
--- NOTE | 2016-08-19 09:57 | PD.CONS ---
History of Present Illness Service Infectious disease Consult Requested By Dina Cordero Reason for Consult Evaluate patient with possible PCP Primary Care Physician No Primary Care Physician Diagnoses: History of Present Illness Patient seen and examined. Records reviewed. Patient is a 35-year-old male, who carries a diagnosis of COPD, has been a heavy smoker since he was 11 or 12 years old, presented to the hospital complaining of increasing shortness of breath over the last 3-4 days. Patient was living in [place], and he actually started getting sick while he was up there with what he described as some respiratory infection. Patient has a chronic cough but normally does not have any sputum production. He started getting more phlegm, and he had a scheduled bus ride to go to [place], which she took, and since he's been here his cough has been progressively worsening with yellow sputum, and shortness of breath started to be getting worse as well. He has significant shortness of breath even just walking short distances like going to the bathroom. Patient also was having fever and chills, as well as night sweats. He also has been having diarrhea about 3 a day, and has had chronic mild abdominal discomfort which comes and goes, and this has been going on for a while and has not been evaluated. Patient has had problem with shortness of breath, and he's had chest tightness chronically on and off and has not been evaluated. When he presented, he had a chest x-ray which was normal. His white count was elevated. He's had fevers up to 100.6. CT of the chest showed some abnormality in the upper lobes, which was described as a tree in a bud findings. He has not vomited. Has not had any ear pain or ear drainage. Denies any urinary complaints. Patient gives a history of homosexual activity which his had for a long time. He used to have HIV testing regularly but none since 2003. His always had negative results. He is sexually active, and has had unprotected sex. His last sexual activity was about 2 months ago. Patient currently is on treatment for her pneumonia, COPD exacerbation. He is on Rocephin, and Zithromax, as well as IV steroids. Flagyl was added. Infectious disease consultations requested to evaluate the patient. Review of Systems Constitutional: COMPLAINS OF: Fever, Weight gain, Chills, Night Sweats Eyes: DENIES: Eye pain Ears, nose, mouth, throat: COMPLAINS OF: Nasal discharge, DENIES: Oral lesions , Throat pain, Sinus Pain, Toothache Respiratory: COMPLAINS OF: Cough, Wheezing, Sputum production, Shortness of breath, DENIES: Hemoptysis Cardiovascular: COMPLAINS OF: Chest pain, Palpitations, Dyspnea on Exertion, DENIES: Syncope Gastrointestinal: COMPLAINS OF: Abdominal pain, Diarrhea, DENIES: Bloody stools, Constipation, Nausea, Vomiting, Difficulty Swallowing Genitourinary: DENIES: Urgency, Hematuria, Dysuria, Penile Discharge Musculoskeletal: COMPLAINS OF: Muscle aches, DENIES: Joint pain, Joint Swelling Integumentary: DENIES: Rash Hematologic/lymphatic: DENIES: Bruising Immunologic/allergic: DENIES: Urticaria Neurologic: DENIES: Headache Psychiatric: COMPLAINS OF: Anxiety, DENIES: Hallucinations Past Family Social History Allergies: Coded Allergies: Penicillin (Verified Allergy, Severe, UNKNOWN, 08/18/16) *MDRO Multi-Drug Resistant Organism (Verified Adverse Reaction, Unknown, ) MRSA (arm)-11/15/08 Past Medical History COPD Hypertension GERD Anxiety/depression Bipolar disorder Denies history of STD Past Surgical History Right inguinal hernia repair Active Ordered Medications Tylenol prn Albuterol prn Zithromax Tessalon prn Rocephin Vasotec prn Lovenox Prinivil Ativan prn Solu-Medrol Flagyl Zofran prn Social History Born here in [facility], was living in [facility], and recently moved back to [facility] about a week or less ago Smokes one pack per day and has done so since age 11. Drinks 6 beers and 2 mixed drinks per day. Denies IVDU, has used cocaine many years ago He is homosexual, has no partner currently, last partner 2 months ago Physical Exam Vital Signs Vital Signs Date Time Temp Pulse Resp B/P Pulse Ox O2 Delivery O2 Flow Rate FiO2 08/19/16 07:43 97.0 110 20 132/78 91 08/19/16 07:29 93 Nasal Cannula 3.00 08/19/16 05:35 96 Nasal Cannula 3.00 08/19/16 04:15 96.3 88 20 129/84 96 08/19/16 00:00 96.8 87 20 134/82 96 08/18/16 20:00 97.4 80 20 133/73 95 08/18/16 16:00 97.6 92 24 157/79 97 08/18/16 15:18 94 Nasal Cannula 3.00 08/18/16 12:00 97.7 102 20 140/81 94 08/18/16 11:45 95 Nasal Cannula 3.00 Physical Exam GENERAL: This is a well-nourished, well-developed male, awake and alert, has flushed skin, seems to be comfortable at rest, on nasal oxygen SKIN: Warm and dry. No generalized rash or ecchymosis. HEAD: Atraumatic. Normocephalic. No temporal or scalp tenderness. EYES: Jupiter conjunctivae, no petechia or hemorrhage. Pupils equal round and reactive. Extraocular motions intact. No scleral icterus. No injection or drainage. ENT: Nose without bleeding, or purulent drainage. Moist oral mucosa, no oral thrush noted. Throat without erythema, or exudate. Uvula midline. Airway patent. NECK: Trachea midline. No JVD or lymphadenopathy. Supple, nontender, no meningeal signs. CARDIOVASCULAR: Tachycardic. Regular rate and rhythm without murmurs, gallops, or rubs. RESPIRATORY: Has diffuse wheezing, seem to be worse on the left than on the right. Decreased breath sounds at the bases. GASTROINTESTINAL: Abdomen soft, bowel sounds are present and normoactive. Non- tender, nondistended. Has abdominal striae. No hepato-splenomegaly, or palpable masses. No guarding. No rebound. MUSCULOSKELETAL: Extremities without clubbing, cyanosis, or edema. No joint effusion, or edema noted. Has good ROM. No calf tenderness. Negative Homans sign bilaterally. NEUROLOGICAL: Awake and alert. Cranial nerves grossly intact. Five out of 5 muscle strength in all muscle groups. Normal speech. PSYCH: Normal affect, calm and cooperative LINE: PIV with no evidence of infection Laboratory Laboratory Tests Test 08/18/16 08/19/16 12:40 06:56 Nasal Screen MRSA (PCR) MRSA NOT DETECTED White Blood Count 20.6 Red Blood Count 4.26 Hemoglobin 13.5 Hematocrit 39.5 Mean Corpuscular Volume 92.8 Mean Corpuscular Hemoglobin 31.8 Mean Corpuscular Hemoglobin 34.2 Concent Red Cell Distribution Width 12.4 Platelet Count 217 Mean Platelet Volume 10.5 Neutrophils (%) (Auto) 91.6 Lymphocytes (%) (Auto) 5.1 Monocytes (%) (Auto) 3.1 Eosinophils (%) (Auto) 0.0 Basophils (%) (Auto) 0.2 Neutrophils # (Auto) 18.8 Lymphocytes # (Auto) 1.0 Monocytes # (Auto) 0.6 Eosinophils # (Auto) 0.0 Basophils # (Auto) 0.0 CBC Comment AUTO DIFF Sodium Level 140 Potassium Level 3.9 Chloride Level 104 Carbon Dioxide Level 25.0 Anion Gap 11 Blood Urea Nitrogen 12 Creatinine 0.79 Estimat Glomerular Filtration 112 Rate Random Glucose 150 Calcium Level 8.9 Date/Time Procedure Status Source Growth 08/18/16 20:45 Acid Fast Stain Received Sputum Expectorated Sputum Pending 08/18/16 20:45 Mycobacterial Culture Received Sputum Expectorated Sputum Pending 08/18/16 19:10 Gram Stain Received Sputum Expectorated Sputum Pending 08/18/16 19:10 Sputum Culture Received Sputum Expectorated Sputum Pending 08/18/16 04:39 Aerobic Blood Culture Received Blood Peripheral Pending 08/18/16 04:39 Anaerobic Blood Culture Received Blood Peripheral Pending 08/18/16 04:34 Influenza Types A,B Antigen (LUISA) - Final Complete Nasal Aspirate NEGATIVE FOR FLU A AND B ANTIGEN.... 08/18/16 04:34 Gram Stain - Final Resulted Sputum Expectorated Sputum 08/18/16 04:34 Sputum Culture Resulted Sputum Expectorated Sputum Pending Result Diagram: 08/19/16 0656 08/19/16 0656 Imaging RADIOLOGY STUDIES/FILMS REVIEWED Chest X-Ray 08/18/16428 Signed Impressions: Service Date/Time: Thursday, August 18, 2016 04:43 - CONCLUSION: No acute disease. Jesse Cerna Jr., MD CT Angiography 08/18/16428 Signed Impressions: Service Date/Time: Thursday, August 18, 2016 05:45 - CONCLUSION: 1. There is weak opacification of the pulmonary arteries with the contrast bolus. This limits the evaluation of the smaller branches. No pulmonary emboli seen. 2. Tree in bud type appearance involving the upper lobes bilaterally consistent with an infectious etiology. 3. 5 mm pulmonary nodule within the right upper lobe. Current guidelines suggest a repeat CT of the thorax in 12 months to document stability. Jesse Cerna Jr., MD Assessment and Plan Assessment and Plan IMPRESSION Sepsis on presentation due to pulmonary process CAP, COPD exacerbation - CT with tree in bud, ?mycobacterial infection, ?bronchiectasis Has HIV risk factor Heavy smoking, and known regular ETOH ?allergy toPCN - has never really been told that he had a reaction to PCN; his parents are both allergic to PCN Diarrhea,, prob part of his sepsis RECOMMENDATION Agree with current Abx: Rocephin and Zithromax Also on Flagyl Follow stool studies Follow C/S Await HIV testing Will D/W pulmonary: bronch? On Rx for COPD exacerbation Repeat LFT, check LDH Will determine course of Rx once work-up done I will follow along with you Thank you for this consultation Discussed Condition With Explained plan to patient Jane Vargas MD August 19, 2016 09:57
[2016-08-19] MEDS ORDERED: PNEUMOCOCCAL POLYVALENT INJ 25 MCG/0.5 ML SYR IM ONE (10:00)
[2016-08-19] MEDS: methylPREDNISolone SOD SUCC 40 MG/1 ML VIAL IV PUSH SCH ×3 (10:00→21:55)
[2016-08-19] MEDS ORDERED: INFLUENZA VIRUS VACCINE (QUADRIVALENT) 0.5 ML SYR IM ONE (10:00)
[2016-08-19] MEDS: ENOXAPARIN SODIUM 40 MG/0.4 ML SYRINGE SQ SCH (10:56)
[2016-08-19 11:34] LABS: INDIRECT BILIRUBIN 0.2 MG/DL (0.0-0.8); TOTAL BILIRUBIN ADULT 0.3 MG/DL (0.2-1.0)
[2016-08-19 14:08] LABS: C. DIFF EPI 027 PRESUMPTIVE NEGATIVE (NEGATIVE); C. DIFF TOXIN PCR NEGATIVE (NEGATIVE)
[2016-08-19] MEDS: metroNIDAZOLE 500 MG TAB PO SCH ×2 (14:23→21:53)
--- NOTE | 2016-08-19 20:27 | HHI.PR ---
Subjective Remarks Breathing better. Still has wheezing and a cough . On Rocephin/Zithro/Flagyl. Sputum is thick Objective Vital Signs Date Time Temp Pulse Resp B/P Pulse Ox O2 Delivery O2 Flow Rate FiO2 08/19/16 19:54 93 Nasal Cannula 3.00 08/19/16 16:00 98.6 97 20 137/85 95 08/19/16 11:50 96.8 101 20 136/71 94 08/19/16 07:43 97.0 110 20 132/78 91 08/19/16 07:29 93 Nasal Cannula 3.00 08/19/16 05:35 96 Nasal Cannula 3.00 08/19/16 04:15 96.3 88 20 129/84 96 08/19/16 00:00 96.8 87 20 134/82 96 I/O 08/18/16 08/18/16 08/18/16 08/19/16 08/19/16 08/19/16 07:00 15:00 23:00 07:00 15:00 23:00 Intake Total 1560 ml 480 ml 3044 ml 560 ml Output Total 650 ml 675 ml Balance 1560 ml -170 ml -675 ml 3044 ml 560 ml Intake Oral 1560 ml 480 ml 3044 ml IV Total 560 ml Output Urine Total 650 ml 675 ml # Voids 3 Result Diagram: 08/19/1656 08/19/16 0656 Objective Remarks This is a moderately overweight white male in distress. HEENT: Normocephalic. Pupils reactive. Tongue is moist. Nasal mucosa erythematous. Throat is injected. Neck: Supple. No venous distension. Trachea midline. No bruits. Chest: Equal movements with distant breath sounds with wheezes throughout both lung cuevas. Prolonged expirations. Heart: The heart sounds are irregular, no S2. No murmur. No S3. Abdomen: Soft, benign. No masses, no organomegaly or tenderness. The bowel sounds are active. Extremities: Mild varicosities and decreased peripheral pulses. Reflexes are 1+ with no gross motor deficits. Rectal: Exam is deferred. Assessment and Plan Assessment and Plan Impression. 1. Chronic bronchitis . 2. Pneumonia with reactive airways. 3. Probable atypical pneumonia 4. Poss Sleep Apnea Plan : 1. Cont Antibiotics as ordered. 2. Nebs qid , duoneb. 3. Solumedrol 40 mg IV q6h. 4. Rpt CXR. 5. Await sputum studies. 6. Will do bronchoscopy if not improved Joshua Gasca MD August 19, 2016 20:27
[2016-08-20] VITALS (11 sets, daily range): BP systolic 134–148; BP diastolic 70–92; PULSE 63–89; RESP 16–20; TEMP 96.2–98.9; O2SAT 91–98
[2016-08-20] MEDS: RESP: ALBUTEROL 2.5 MG/IPRATROPIUM 0.5 MG NEB (SCH) INH ×4 (04:04→21:11)
[2016-08-20] MEDS: BENZONATATE 100 MG CAP PO PRN ×2 (04:08→22:24)
[2016-08-20] MEDS: methylPREDNISolone SOD SUCC 40 MG/1 ML VIAL IV PUSH SCH ×4 (04:08→22:24)
[2016-08-20] MEDS: metroNIDAZOLE 500 MG TAB PO SCH (06:28)
[2016-08-20] MEDS: cefTRIAXone INJ 1,000 MG in SODIUM CHLORIDE 0.9% INJ 100 ML IV SCH (06:28)
--- NOTE | 2016-08-20 07:41 | RADRPT ---
EXAM DATE/TIME: 08/20/2016 06:39 [facility] COMPARISON: CHEST SINGLE AP, August 18, 2016, 4:43. INDICATIONS : Short of breath, coughing, tightness in chest MEDICAL HISTORY : Chronic obstructive pulmonary disease. Gastroesophageal reflux disease. Hypertension. SURGICAL HISTORY : Inguinal hernia repair. ENCOUNTER: Subsequent ACUITY: 4 - 6 days PAIN SCORE: 0/10 LOCATION: Bilateral chest FINDINGS: A single view of the chest demonstrates the lungs to be symmetrically aerated without evidence of mas s, infiltrate or effusion. The cardiomediastinal contours are unremarkable. Scoliosis. Osseous stru ctures are intact. CONCLUSION: No acute disease. Chuck Mckinley MD on August 20, 2016 at 7:39 Board Certified Radiologist. This report was verified electronically.
[2016-08-20] MEDS: SODIUM CHLORIDE 0.9% FLUSH 10 ML FLUSH IV FLUSH SCH ×2 (08:49→22:24)
[2016-08-20] MEDS: AZITHROMYCIN 250 MG TAB PO SCH (08:50)
[2016-08-20] MEDS: LISINOPRIL 10 MG TAB PO SCH (08:51)
[2016-08-20] MEDS: ENOXAPARIN SODIUM 40 MG/0.4 ML SYRINGE SQ SCH (08:59)
--- NOTE | 2016-08-20 10:55 | HHI.PR ---
Subjective Remarks Follow up shortness of breath. Patient seen and examined by myself and Dr. Villegas. Patient continued complaint of shortness of breath especially with activity. Diarrhea less frequent. Patient appetite poor. Denies any new recent complaints such as fever, cough, chills, nausea or vomiting. Patient does express concern about discharge plans and management of his medical conditions without insurance or PCP. Requesting case management assistance. Objective Vitals Vital Signs Date Time Temp Pulse Resp B/P Pulse Ox O2 Delivery O2 Flow Rate FiO2 08/20/16 09:20 95 Nasal Cannula 08/20/16 07:40 96.9 81 20 146/92 96 08/20/16 04:15 98.9 84 16 140/77 98 08/20/16 04:07 91 Nasal Cannula 21 08/20/16 01:09 96.2 63 20 134/70 96 08/19/16 21:00 96.5 89 18 143/86 96 08/19/16 20:09 105 08/19/16 19:54 93 Nasal Cannula 3.00 08/19/16 16:00 98.6 97 20 137/85 95 08/19/16 11:50 96.8 101 20 136/71 94 I/O 08/19/16 08/19/16 08/19/16 08/20/16 08/20/16 08/20/16 07:00 15:00 23:00 07:00 15:00 23:00 Intake Total 3044 ml 1280 ml 240 ml Output Total 675 ml 650 ml 800 ml Balance -675 ml 3044 ml 630 ml -560 ml Intake Oral 3044 ml 720 ml 240 ml IV Total 560 ml Output Urine Total 675 ml 650 ml 800 ml Result Diagram: 08/19/16 0656 08/19/16 0656 Imaging Last Impressions Chest X-Ray 08/20/16 0600 Signed Impressions: Service Date/Time: August 06:39 - CONCLUSION: No acute disease. Chuck Mckinley MD CT Angiography 08/18/16 0429 Signed Impressions: Service Date/Time: Thursday, August 18, 2016 05:45 - CONCLUSION: 1. There is weak opacification of the pulmonary arteries with the contrast bolus. This limits the evaluation of the smaller branches. No pulmonary emboli seen. 2. Tree in bud type appearance involving the upper lobes bilaterally consistent with an infectious etiology. 3. 5 mm pulmonary nodule within the right upper lobe. Current guidelines suggest a repeat CT of the thorax in 12 months to document stability. Jesse Cerna Jr., MD Objective Remarks GENERAL: Well-nourished, well-developed patient, lying in bed short of breath on supplemental oxygen. Minimally short of breath with activity. SKIN: Warm and dry. No rash. HENT: Normocephalic. Atraumatic. Pupils equal and round. No scleral icterus. No injection or drainage. No nasal bleeding or discharge. Mucous membranes pink and moist. NECK: Supple. Trachea midline. CARDIOVASCULAR: Regular rate and rhythm. S1, S2 noted. No murmur appreciated. RESPIRATORY: No accessory muscle use. Wheezing resolved, just received breathing treatment. Lungs CTA. Breath sounds equal bilaterally. GASTROINTESTINAL: Abdomen soft, non-tender, nondistended. Normoactive bowel sounds x4. MUSCULOSKELETAL: No obvious deformities. Extremities without clubbing, cyanosis , or edema. NEUROLOGICAL: Awake and alert. No obvious cranial nerve deficits. Motor grossly within normal limits. 5/5 muscle strength in bilateral upper and lower extremities. Normal speech. PSYCHIATRIC: Appropriate mood and affect; insight and judgment normal. Urinary Catheter: No Vascular Central Line Catheter: No A/P Problem List: (1) COPD exacerbation ICD Code: J44.1 Status: Acute (2) Hypokalemia ICD Code: E87.6 Status: Acute (3) Hyponatremia ICD Code: E87.1 Status: Acute (4) Leukocytosis ICD Code: D72.829 Status: Acute (5) Tobacco abuse ICD Code: Z72.0 Status: Acute (6) GERD (gastroesophageal reflux disease) ICD Code: K21.9 Status: Acute (7) Pulmonary nodule, right ICD Code: R91.1 Status: Acute (8) Alcohol abuse ICD Code: F10.10 Status: Acute (9) Sepsis ICD Code: A41.9 Status: Acute Assessment and Plan Mr. Fragoso is a 35-year-old male with a known history of COPD, significant smoking history, alcohol abuse and hypertension who presented to the ED with complaints of ongoing shortness of breath x 3 days. Meets sepsis criteria with presence of tachycardia, tachypnea and leukocytosis. Dyspnea likely secondary to COPD exacerbation Possibility of PCP or HIV secondary to history of homosexual activity Diarrhea x 4 days - WBC 17.6 -- > 20.6. Awaiting am labs - Chest x-ray reviewed by me, no acute disease. - Continue supplemental oxygen. - Pulmonology following, appreciate input. Bronchoscopy if patient does not improve. - Continue methylprednisolone 40 mg IV Q6hr. - Continue DuoNebs. - Continue Azithromycin 500 mg IV Q24hr and Rocephin 1 g IV Q24hr. - Continue Flagyl 500 mg IV Q8hr. - ID following, appreciate input. - Stool studies pending. c. difficile negative. - HIV and Hepatitis profile negative. Pulmonary nodule, right upper lobe - CT Angiography reviewed by me, weak opacification of the pulmonary arteries with the contrast bolus. This limits the evaluation of the smaller branches. No pulmonary emboli seen. Tree in bud type appearance involving the upper lobes bilaterally consistent with an infectious etiology. 3. 5 mm pulmonary nodule within the right upper lobe. Radiology recommends follow-up CT in one year. - Pulmonary following, appreciate input. Would highly suggest bronchoscopy if not improving. Hypertension: Controlled. - Continue Lisinopril. Vasotec PRN. - ECHO reviewed by me, EF 55-60%. Wall thickness and cavity size normal. Systolic function normal. Tobacco abuse: Encouraged cessation. Alcohol abuse: Encourage cessation. DVT prophylaxis: Lovenox. Written by Lexie Villalobos, acting as scribe for Dr. Villegas on 08/20/16 at 10: 55. This note was transcribed by scribe Lexie Villalobos. I, Dr. Eligio Villegas personally performed the history, physical exam, and medical decision making; and confirmed the accuracy of the information in the transcribed note. Authenticated by Dr. Eligio Villegas on 08/20/16 at 10:55. Lexie Villalobos August 20, 2016 10:55 Eligio Villegas MD August 25, 2016 10:16
[2016-08-20 11:54] LABS: BASOPHIL % 0.1 % (0.0-2.0); HEMATOCRIT 36.6 % (39.0-51.0); LYMPH % 6.7 % (9.0-44.0); MEAN CELL VOLUME 91.8 FL (80.0-100.0); MEAN CORPUSCULAR HEMOGLOBIN 31.1 PG (27.0-34.0); MEAN CORPUSCULAR HGB CONC 33.8 % (32.0-36.0); MONO % 4.8 % (0.0-8.0); NEUT % 88.4 % (16.0-70.0); PLATELET COUNT 247 TH/MM3 (150-450); RED BLOOD COUNT 3.99 MIL/MM3 (4.50-5.90); RED CELL DISTRIBUTION WIDTH 12.4 % (11.6-17.2); WHITE BLOOD COUNT 14.7 TH/MM3 (4.0-11.0)
[2016-08-20 11:55] LABS: HEMO FLAGS AUTO DIFF
[2016-08-20 13:32] LABS: BANDS 16 % (0-6); NEUTROPHIL # MANUAL DIFF 13.2 TH/MM3 (1.8-7.7); PLATELET ESTIMATE SMEAR NORMAL (NORMAL); PLATELET MORPHOLOGY NORMAL (NORMAL); POLYS (SEG NEUTROPHILS) 74 % (16-70); SCAN/DIFF FINAL DIFF MANUAL; WBC DIFF SAMPLE 100
--- NOTE | 2016-08-20 14:05 | HHI.IDPN ---
Subjective Subjective Remarks Notes reviewed Temps ok Breathing is better Stool studies negative so far Sputum NF HIV negative Antibiotics Rocephin Zithromax Flagyl Lines PIV Past Medical History COPD Hypertension GERD Anxiety/depression Bipolar disorder Denies history of STD Past Surgical History Right inguinal hernia repair Allergies: Coded Allergies: Penicillin (Verified Allergy, Severe, UNKNOWN, 08/18/16) *MDRO Multi-Drug Resistant Organism (Verified Adverse Reaction, Unknown, ) MRSA (arm)-11/15/08 Objective . Vital Signs Date Time Temp Pulse Resp B/P Pulse Ox O2 Delivery O2 Flow Rate FiO2 08/20/16 11:50 97.0 82 20 134/74 96 08/20/16 09:20 95 Nasal Cannula 08/20/16 07:40 96.9 81 20 146/92 96 08/20/16 04:15 98.9 84 16 140/77 98 08/20/16 04:07 91 Nasal Cannula 21 08/20/16 01:09 96.2 63 20 134/70 96 08/19/16 21:00 96.5 89 18 143/86 96 08/19/16 20:09 105 08/19/16 19:54 93 Nasal Cannula 3.00 08/19/16 16:00 98.6 97 20 137/85 95 08/19/16 08/19/16 08/20/16 15:00 23:00 07:00 Intake Total 3044 ml 1280 ml 240 ml Output Total 650 ml 800 ml Balance 3044 ml 630 ml -560 ml Intake Oral 3044 ml 720 ml 240 ml IV Total 560 ml Output Urine Total 650 ml 800 ml . Laboratory Tests Test 08/19/16 08/20/16 06:56 11:30 White Blood Count 20.6 TH/MM3 14.7 TH/MM3 Red Blood Count 4.26 MIL/MM3 3.99 MIL/MM3 Hemoglobin 13.5 GM/DL 12.4 GM/DL Hematocrit 39.5 % 36.6 % Mean Corpuscular Volume 92.8 FL 91.8 FL Mean Corpuscular Hemoglobin 31.8 PG 31.1 PG Mean Corpuscular Hemoglobin 34.2 % 33.8 % Concent Red Cell Distribution Width 12.4 % 12.4 % Platelet Count 217 TH/MM3 247 TH/MM3 Mean Platelet Volume 10.5 FL 9.7 FL Neutrophils (%) (Auto) 91.6 % 88.4 % Lymphocytes (%) (Auto) 5.1 % 6.7 % Monocytes (%) (Auto) 3.1 % 4.8 % Eosinophils (%) (Auto) 0.0 % 0.0 % Basophils (%) (Auto) 0.2 % 0.1 % Neutrophils # (Auto) 18.8 TH/MM3 13.0 TH/MM3 Lymphocytes # (Auto) 1.0 TH/MM3 1.0 TH/MM3 Monocytes # (Auto) 0.6 TH/MM3 0.7 TH/MM3 Eosinophils # (Auto) 0.0 TH/MM3 0.0 TH/MM3 Basophils # (Auto) 0.0 TH/MM3 0.0 TH/MM3 CBC Comment AUTO DIFF AUTO DIFF Differential Total Cells 100 100 Counted Neutrophils % (Manual) 70 % 74 % Band Neutrophils % 24 % 16 % Lymphocytes % 4 % 6 % Monocytes % 1 % 4 % Neutrophils # (Manual) 19.6 TH/MM3 13.2 TH/MM3 Metamyelocytes 1 % Differential Comment FINAL DIFF FINAL DIFF MANUAL MANUAL Platelet Estimate NORMAL NORMAL Platelet Morphology Comment NORMAL NORMAL Red Cell Morphology Comment NORMAL NORMAL Laboratory Tests Test 08/19/16 08/19/16 06:56 10:06 Sodium Level 140 MEQ/L Potassium Level 3.9 MEQ/L Chloride Level 104 MEQ/L Carbon Dioxide Level 25.0 MEQ/L Anion Gap 11 MEQ/L Blood Urea Nitrogen 12 MG/DL Creatinine 0.79 MG/DL Estimat Glomerular Filtration 112 ML/MIN Rate Random Glucose 150 MG/DL Calcium Level 8.9 MG/DL Total Bilirubin 0.3 MG/DL Direct Bilirubin 0.1 MG/DL Indirect Bilirubin 0.2 MG/DL Aspartate Amino Transf 36 U/L (AST/SGOT) Alanine Aminotransferase 28 U/L (ALT/SGPT) Alkaline Phosphatase 174 U/L Lactate Dehydrogenase 199 U/L Total Protein 7.1 GM/DL Albumin 2.8 GM/DL Microbiology Date/Time Procedure Status Source Growth 08/18/16 04:34 Aerobic Blood Culture - Preliminary Resulted Blood Peripheral NO GROWTH IN 2 DAYS 08/18/16 04:34 Anaerobic Blood Culture - Preliminary Resulted Blood Peripheral NO GROWTH IN 2 DAYS 08/18/16 04:34 Influenza Types A,B Antigen (LUISA) - Final Complete Nasal Aspirate NEGATIVE FOR FLU A AND B ANTIGEN.... 08/18/16 04:34 Gram Stain - Final Complete Sputum Expectorated Sputum 08/18/16 04:34 Sputum Culture - Final Complete Sputum Expectorated Sputum HEAVY GROWTH NORMAL RESPIRATORY LIZ 08/18/16 04:39 Aerobic Blood Culture - Preliminary Resulted Blood Peripheral NO GROWTH IN 2 DAYS 08/18/16 04:39 Anaerobic Blood Culture - Preliminary Resulted Blood Peripheral NO GROWTH IN 2 DAYS 08/18/16 19:10 Gram Stain - Final Complete Sputum Expectorated Sputum 08/18/16 19:10 Sputum Culture - Final Complete Sputum Expectorated Sputum HEAVY GROWTH NORMAL RESPIRATORY LIZ 08/18/16 19:10 Acid Fast Stain Received Sputum Expectorated Sputum Pending 08/18/16 19:10 Mycobacterial Culture Received Sputum Expectorated Sputum Pending 08/18/16 20:45 Acid Fast Stain Received Sputum Expectorated Sputum Pending 08/18/16 20:45 Mycobacterial Culture Received Sputum Expectorated Sputum Pending 08/19/16 11:45 Received Stool Stool Pending 08/19/16 11:45 Acid Fast Stain Received Stool Stool Pending 08/19/16 11:45 Mycobacterial Culture Received Stool Stool Pending 08/19/16 11:45 Fungal Smear - Final Resulted Stool Stool NO FUNGAL ELEMENTS SEEN. 08/19/16 11:45 Fungal Culture - Preliminary Resulted Stool Stool 08/19/16 11:45 Cryptosporidium Exam - Final Complete Stool Stool NEGATIVE - NO CRYPTOSPORIDIUM ANTIGEN... 08/19/16 11:45 Giardia Antigen (LUISA) - Final Complete Stool Stool NEGATIVE - NO GIARDIA ANTIGEN DETECTE... 08/19/16 11:45 Legionella Antigen - Final Complete Urine Clean Catch PRESUMPTIVE NEGATIVE FOR LEGIONELLA P... 08/19/16 11:45 Streptococcus pneumoniae Antigen (M - Final Complete Urine Clean Catch PRESUMPTIVE NEGATIVE FOR STREPTOCOCCU... Imaging Last Impressions Chest X-Ray 08/20/16 0600 Signed Impressions: Service Date/Time: August 06:39 - CONCLUSION: No acute disease. Chuck Mckinley MD CT Angiography 08/18/16 0429 Signed Impressions: Service Date/Time: Thursday, August 18, 2016 05:45 - CONCLUSION: 1. There is weak opacification of the pulmonary arteries with the contrast bolus. This limits the evaluation of the smaller branches. No pulmonary emboli seen. 2. Tree in bud type appearance involving the upper lobes bilaterally consistent with an infectious etiology. 3. 5 mm pulmonary nodule within the right upper lobe. Current guidelines suggest a repeat CT of the thorax in 12 months to document stability. Jesse Cerna Jr., MD Physical Exam GENERAL: awake and alert, has flushed skin, NAD SKIN: Warm and dry. No generalized rash or ecchymosis. HEAD: Atraumatic. Normocephalic. No temporal or scalp tenderness. EYES: [place] conjunctivae, no petechia or hemorrhage. No scleral icterus. No injection or drainage. ENT: Nose without bleeding, or purulent drainage. Moist oral mucosa, no oral thrush noted. . NECK: Supple, nontender, no meningeal signs. CARDIOVASCULAR: Tachycardic. Regular rate and rhythm without murmurs, gallops, or rubs. RESPIRATORY: Better air movement, no wheezing, decreased L base. GASTROINTESTINAL: Abdomen soft, bowel sounds are present and normoactive. Non- tender, nondistended. Has abdominal striae. No hepato-splenomegaly, or palpable masses. No guarding. No rebound. MUSCULOSKELETAL: Extremities without clubbing, cyanosis, or edema. No joint effusion, or edema noted. Has good ROM. No calf tenderness. Negative Homans sign bilaterally. NEUROLOGICAL: Non-focal PSYCH: Normal affect, calm and cooperative LINE: PIV with no evidence of infection Assessment & Plan Remarks IMPRESSION Sepsis on presentation due to pulmonary process CAP, COPD exacerbation - CT with tree in bud, ?mycobacterial infection, ?bronchiectasis Has HIV risk factor Heavy smoking, and known regular ETOH ?allergy toPCN - has never really been told that he had a reaction to PCN; his parents are both allergic to PCN Diarrhea,, prob part of his sepsis RECOMMENDATION Stop Flagyl Patient clinically much improved on Abx and COPD Rx Ok to hold off on bronch since he is clinically much improved May need to pursue if he gets recurrence even with adequate COPD Rx If continues to do well, switch to oral Abx tomorrow and give Ceftin plus Zithromax for total 7 days Abx Rx Jane Vargas MD August 20, 2016 14:05
[2016-08-20] MEDS ORDERED: DEXT 5%-NACL 0.45% 1000 ML INJ 1,000 ML IV SCH (19:33)
[2016-08-20] MEDS ORDERED: RESP: ALBUTEROL CONC 2.5 MG/0.5 ML NEB NEB SCH (19:45)
[2016-08-21] VITALS (9 sets, daily range): BP systolic 130–158; BP diastolic 67–89; PULSE 58–73; RESP 16–19; TEMP 96.2–98.2; O2SAT 94–98
[2016-08-21] MEDS: RESP: ALBUTEROL 2.5 MG/IPRATROPIUM 0.5 MG NEB (SCH) INH ×4 (03:06→22:28)
[2016-08-21] MEDS: methylPREDNISolone SOD SUCC 40 MG/1 ML VIAL IV PUSH SCH ×4 (03:48→23:13)
[2016-08-21] MEDS: cefTRIAXone INJ 1,000 MG in SODIUM CHLORIDE 0.9% INJ 100 ML IV SCH (06:13)
[2016-08-21 07:33] LABS: BASOPHIL % 0.2 % (0.0-2.0); EOSINOPHIL % 0.1 % (0.0-4.0); HEMATOCRIT 40.4 % (39.0-51.0); LYMPH % 11.7 % (9.0-44.0); LYMPHOCYTE # 1.6 TH/MM3 (1.0-4.8); MEAN CELL VOLUME 92.5 FL (80.0-100.0); MEAN CORPUSCULAR HEMOGLOBIN 30.4 PG (27.0-34.0); MEAN CORPUSCULAR HGB CONC 32.9 % (32.0-36.0); MONO % 5.3 % (0.0-8.0); NEUT % 82.7 % (16.0-70.0); PLATELET COUNT 251 TH/MM3 (150-450); RED BLOOD COUNT 4.37 MIL/MM3 (4.50-5.90); RED CELL DISTRIBUTION WIDTH 12.1 % (11.6-17.2); WHITE BLOOD COUNT 13.4 TH/MM3 (4.0-11.0)
[2016-08-21 07:39] LABS: HEMO FLAGS AUTO DIFF
[2016-08-21 08:31] LABS: BANDS 4 % (0-6); NEUTROPHIL # MANUAL DIFF 11.1 TH/MM3 (1.8-7.7); PLATELET ESTIMATE SMEAR NORMAL (NORMAL); PLATELET MORPHOLOGY NORMAL (NORMAL); POLYS (SEG NEUTROPHILS) 79 % (16-70); SCAN/DIFF FINAL DIFF MANUAL; WBC DIFF SAMPLE 100
[2016-08-21] MEDS: LISINOPRIL 10 MG TAB PO SCH (08:33)
[2016-08-21] MEDS: ENOXAPARIN SODIUM 40 MG/0.4 ML SYRINGE SQ SCH (08:33)
[2016-08-21] MEDS: AZITHROMYCIN 250 MG TAB PO SCH (08:33)
[2016-08-21] MEDS: SODIUM CHLORIDE 0.9% FLUSH 10 ML FLUSH IV FLUSH SCH ×2 (08:34→16:16)
--- NOTE | 2016-08-21 09:23 | HHI.PR ---
Subjective Remarks says that his sob is improving. complaining of constipation. no fever. Objective Vitals Vital Signs Date Time Temp Pulse Resp B/P Pulse Ox O2 Delivery O2 Flow Rate FiO2 08/21/16 08:00 97.1 61 17 144/89 94 08/21/16 04:00 96.2 63 19 140/85 97 08/21/16 00:00 96.8 58 18 130/71 94 08/20/16 21:11 96 Nasal Cannula 3.00 08/20/16 20:07 72 08/20/16 20:00 97.4 89 19 148/82 97 08/20/16 16:55 72 08/20/16 15:50 96.7 71 20 145/74 97 08/20/16 11:50 97.0 82 20 134/74 96 08/20/16 09:20 95 Nasal Cannula I/O 08/20/16 08/20/16 08/20/16 08/21/16 08/21/16 08/21/16 06:59 14:59 22:59 06:59 14:59 22:59 Intake Total 240 ml 1301 ml 480 ml 240 ml Output Total 800 ml 1200 ml 600 ml 600 ml Balance -560 ml 101 ml -120 ml -360 ml Intake Oral 240 ml 1301 ml 480 ml 240 ml Output Urine Total 800 ml 1200 ml 600 ml 600 ml # Bowel Movements 0 0 0 Result Diagram: 08/21/16 0610 08/19/16 0656 Imaging Last Impressions Chest X-Ray 08/20/16 0600 Signed Impressions: Service Date/Time: August 06:39 - CONCLUSION: No acute disease. Chuck Mckinley MD CT Angiography 08/18/16 0429 Signed Impressions: Service Date/Time: Thursday, August 18, 2016 05:45 - CONCLUSION: 1. There is weak opacification of the pulmonary arteries with the contrast bolus. This limits the evaluation of the smaller branches. No pulmonary emboli seen. 2. Tree in bud type appearance involving the upper lobes bilaterally consistent with an infectious etiology. 3. 5 mm pulmonary nodule within the right upper lobe. Current guidelines suggest a repeat CT of the thorax in 12 months to document stability. Jesse Cerna Jr., MD Objective Remarks GENERAL: This is a well-nourished, well-developed patient, in no apparent distress. CARDIOVASCULAR: Regular rate and regular rhythm without murmurs, gallops, or rubs. RESPIRATORY: Clear to auscultation. Breath sounds equal bilaterally. No wheezes , rales, or rhonchi. GASTROINTESTINAL: Abdomen soft, non-tender, nondistended. Normal, active bowel sounds MUSCULOSKELETAL: Extremities without clubbing, cyanosis, or edema. NEURO: Alert & Oriented x4 to person, place, time, situation. Moves all ext x4 Medications and IVs Current Medications Sodium Chloride (NS Flush) 2 ml UNSCH PRN IVF FLUSH AFTER USING IV ACCESS; Start 08/18/16 at 04:30; Stop 08/18/16 at 06:32; Status DC Albuterol/ Ipratropium 1 ampule 1 ampule Q15M INH Last administered on 05:03; Start 08/18/16 at 04:30; Stop 08/18/16 at 05:01; Status DC Ceftriaxone Sodium 1000 mg/ Sodium Chloride 100 ml @ 200 mls/hr ONCE ONCE IV Last administered on 08/18/16 04:54; Start 08/18/16 at 04:30; Stop 08/18/16 at 04: 59; Status DC Azithromycin 500 mg/Sodium Chloride 250 ml @ 250 mls/hr ONCE ONCE IV Last administered on 08/18/16 05:51; Start 08/18/16 at 04:30; Stop 08/18/16 at 05:29; Status DC Sodium Chloride (NS 1000 ml Inj) 1,000 ml @ 999 mls/hr BOLUS ONCE IV Last administered on 08/18/16 04:53; Start 08/18/16 at 04:30; Stop 08/18/16 at 05:30; Status DC Lorazepam 1 mg 1 mg ONCE ONCE IV PUSH Last administered on 08/18/16 04:54; Start 08/18/16 at 04:45; Stop 08/18/16 at 04:46; Status DC Sodium Chloride (NS 1000 ml Inj) 1,000 ml @ 1,000 mls/hr Q1H ONCE IV Last administered on 08/18/16 05:52; Start 08/18/16 at 05:30; Stop 08/18/16 at 06:29; Status DC Iohexol (Omnipaque 350 Inj) 73 ml STK-MED ONCE IV Last administered on 05:50; Start 08/18/16 at 05:50; Stop 08/18/16 at 05:51; Status DC Potassium Chloride (KCl) 20 meq ONCE ONCE PO Last administered on 08/18/16 06: 33; Start 08/18/16 at 06:30; Stop 08/18/16 at 06:31; Status DC Sodium Chloride (NS Flush) 2 ml UNSCH PRN IV FLUSH FLUSH AFTER USING IV ACCESS Last administered on 08/20/16 14:04; Start 08/18/16 at 06:30 Sodium Chloride (NS Flush) 2 ml BID IV FLUSH Last administered on 08/21/16 08: 34; Start 08/18/16 at 09:00 Acetaminophen (Tylenol) 650 mg Q4H PRN PO TEMP > 100.4 Last administered on 08/18 06:35; Start 08/18/16 at 06:30 Ondansetron HCl (Zofran Inj) 4 mg Q6H PRN IVP NAUSEA OR VOMITING; Start at 06:30 Naloxone HCl (Narcan Inj) 0.4 mg UNSCH PRN IV SEE LABEL COMMENTS; Start at 06:30 Lisinopril (Prinivil) 10 mg DAILY PO Last administered on 08/21/16 08:33; Start 08/18/16 at 09:15 Albuterol/ Ipratropium (Duoneb Neb) 1 ampule Q6HR NEB INH Last administered on 08/20/16 21:11; Start 08/18/16 at 10:00 Albuterol Sulfate (Albuterol Neb) 2.5 mg Q2HR NEB PRN INH SHORTNESS OF BREATH; Start 08/18/16 at 09:15 Methylprednisolone Sodium Succinate 60 mg 60 mg Q6H IVP Last administered on 05:25; Start 08/18/16 at 10:00; Stop 08/19/16 at 08:37; Status DC Ceftriaxone Sodium 1000 mg/ Sodium Chloride 100 ml @ 200 mls/hr Q24H IV Last administered on 08/21/16 06:13; Start 08/19/16 at 06:00 Azithromycin/ Sodium Chloride (Zithromax Inj/ NS 250 ml Inj) 250 ml @ 250 mls/ hr Q24H IV Last administered on 08/19/16 05:24; Start 08/19/16 at 05:00; Stop 08/19/16 at 09:36; Status DC Enoxaparin Sodium (Lovenox Inj) 40 mg Q24H SQ Last administered on 08/21/16 08 :33; Start 08/18/16 at 10:00 Enalaprilat 1.25 mg 1.25 mg Q6H PRN IV PUSH SBP>160, DBP>90; Start 08/18/16 at 09:15 Potassium Chloride/Sodium Chloride (NS + KCl 20 Meq Inj) 1,000 ml @ 70 mls/hr [id number] IV Last administered on 08/18/16 23:26; Start 08/18/16 at 09:30; Stop at 08:38; Status DC Flumazenil (Romazicon Inj) 0.2 mg Q1M PRN IV PUSH SEE LABEL COMMENTS; Start 08/18/16 at 09:30 Lorazepam (Ativan) 1 mg Q4H PRN PO CIWA 8 - 10; Start 08/18/16 at 09:30 Lorazepam (Ativan Inj) 1 mg Q4H PRN IV PUSH CIWA 8 - 10 Last administered on 14:30; Start 08/18/16 at 09:30 Lorazepam (Ativan) 2 mg Q2H PRN PO CIWA 11-14; Start 08/18/16 at 09:30 Lorazepam (Ativan Inj) 2 mg Q2H PRN IV PUSH CIWA 11-14; Start 08/18/16 at 09:30 Lorazepam (Ativan Inj) 2 mg Q1H PRN IV PUSH CIWA 15-20; Start 08/18/16 at 09:30 Lorazepam (Ativan Inj) 2 mg Q15M PRN IV PUSH CIWA > 20; Start 08/18/16 at 09:30 Pneumococcal Polyvalent Vaccine (Pneumovax-23 Inj) 25 mcg ONCE ONCE IM Last administered on 08/19/16 07:36; Start 08/19/16 at 10:00; Stop 08/19/16 at 10:01 ; Status DC Influenza Virus Vaccine (Flu (Quadrivalent) Vaccine Inj) 0.5 ml ONCE ONCE IM ; Start 08/19/16 at 10:00; Stop 08/19/16 at 10:01; Status DC Benzonatate (Tessalon) 100 mg TID PRN PO cough Last administered on 08/20/16 22:24; Start 08/19/16 at 00:30 Methylprednisolone Sodium Succinate 40 mg 40 mg Q6H IV PUSH Last administered on 08/21/16 08:33; Start 08/19/16 at 10:00 Metronidazole (Flagyl 500 Mg Inj) 100 ml @ 100 mls/hr Q8H IV ; Start 08/19/16 at 09:00; Stop 08/19/16 at 09:37; Status DC Azithromycin (Zithromax) 500 mg DAILY PO Last administered on 08/21/16 08:33; Start 08/20/16 at 09:00 Metronidazole 500 mg 500 mg Q8HR PO Last administered on 08/20/16 06:28; Start 08/19/16 at 14:00; Stop 08/20/16 at 14:00; Status DC Dextrose/Sodium Chloride (D5W-1/2 NS 1000 ml Inj) 1,000 ml @ 0 mls/hr Q0M IV ; Start 08/20/16 at 19:33 Albuterol Sulfate (Albuterol Concentrated Neb) 2.5 mg [facility] NEB ; Start 08/20 at 19:45 A/P Assessment and Plan A/P Meets sepsis criteria with presence of tachycardia, tachypnea and leukocytosis. Dyspnea likely secondary to COPD exacerbation Possibility of PCP or HIV secondary to history of homosexual activity - Continue supplemental oxygen. - Pulmonology following, appreciate input. - start to taper down methylprednisolone . - Continue DuoNebs. - Continue Azithromycin 500 mg IV Q24hr and Rocephin 1 g IV Q24hr. - ID following, appreciate input. - HIV and Hepatitis profile negative. Pulmonary nodule, right upper lobe - CT Angiography with weak opacification of the pulmonary arteries with the contrast bolus. This limits the evaluation of the smaller branches. No pulmonary emboli seen. Tree in bud type appearance involving the upper lobes bilaterally consistent with an infectious etiology. 3. 5 mm pulmonary nodule within the right upper lobe. Radiology recommends follow-up CT in one year. - Pulmonary following, appreciate input. Hypertension: Controlled. - Continue Lisinopril. Vasotec PRN. - ECHO reviewed ; EF 55-60%. Wall thickness and cavity size normal. Systolic function normal. Tobacco abuse: Encouraged cessation. Alcohol abuse: Encourage cessation. constipation; laxatives as needed. DVT prophylaxis: Lovenox. Tesfaye Rudolph MD August 21, 2016 09:23
--- NOTE | 2016-08-21 15:14 | HHI.IDPN ---
Subjective Subjective Remarks Notes reviewed Temps ok Breathing is better Stool studies negative so far Sputum NF HIV negative Clinically doing well Antibiotics Rocephin Zithromax Flagyl Lines PIV Past Medical History COPD Hypertension GERD Anxiety/depression Bipolar disorder Denies history of STD Past Surgical History Right inguinal hernia repair Allergies: Coded Allergies: Penicillin (Verified Allergy, Severe, UNKNOWN, 08/18/16) *MDRO Multi-Drug Resistant Organism (Verified Adverse Reaction, Unknown, ) MRSA PCR screen NEGATIVE 08/18/16 & 08/20/16 Cleared per Infection Control MRSA (arm)-11/15/08 Objective . Vital Signs Date Time Temp Pulse Resp B/P Pulse Ox O2 Delivery O2 Flow Rate FiO2 08/21/16 12:00 96.6 73 16 137/79 95 08/21/16 10:47 69 08/21/16 08:30 98 21 08/21/16 08:00 97.1 61 17 144/89 94 08/21/16 04:00 96.2 63 19 140/85 97 08/21/16 00:00 96.8 58 18 130/71 94 08/20/16 21:11 96 Nasal Cannula 3.00 08/20/16 20:07 72 08/20/16 20:00 97.4 89 19 148/82 97 08/20/16 16:55 72 08/20/16 15:50 96.7 71 20 145/74 97 08/20/16 08/20/16 08/21/16 15:00 23:00 07:00 Intake Total 1301 ml 480 ml 240 ml Output Total 1200 ml 600 ml 600 ml Balance 101 ml -120 ml -360 ml Intake Oral 1301 ml 480 ml 240 ml Output Urine Total 1200 ml 600 ml 600 ml # Bowel Movements 0 0 0 . Laboratory Tests Test 08/20/16 08/21/16 11:30 06:10 White Blood Count 14.7 TH/MM3 13.4 TH/MM3 Red Blood Count 3.99 MIL/MM3 4.37 MIL/MM3 Hemoglobin 12.4 GM/DL 13.3 GM/DL Hematocrit 36.6 % 40.4 % Mean Corpuscular Volume 91.8 FL 92.5 FL Mean Corpuscular Hemoglobin 31.1 PG 30.4 PG Mean Corpuscular Hemoglobin 33.8 % 32.9 % Concent Red Cell Distribution Width 12.4 % 12.1 % Platelet Count 247 TH/MM3 251 TH/MM3 Mean Platelet Volume 9.7 FL 9.7 FL Neutrophils (%) (Auto) 88.4 % 82.7 % Lymphocytes (%) (Auto) 6.7 % 11.7 % Monocytes (%) (Auto) 4.8 % 5.3 % Eosinophils (%) (Auto) 0.0 % 0.1 % Basophils (%) (Auto) 0.1 % 0.2 % Neutrophils # (Auto) 13.0 TH/MM3 11.0 TH/MM3 Lymphocytes # (Auto) 1.0 TH/MM3 1.6 TH/MM3 Monocytes # (Auto) 0.7 TH/MM3 0.7 TH/MM3 Eosinophils # (Auto) 0.0 TH/MM3 0.0 TH/MM3 Basophils # (Auto) 0.0 TH/MM3 0.0 TH/MM3 CBC Comment AUTO DIFF AUTO DIFF Differential Total Cells 100 100 Counted Neutrophils % (Manual) 74 % 79 % Band Neutrophils % 16 % 4 % Lymphocytes % 6 % 15 % Monocytes % 4 % 2 % Neutrophils # (Manual) 13.2 TH/MM3 11.1 TH/MM3 Differential Comment FINAL DIFF FINAL DIFF MANUAL MANUAL Platelet Estimate NORMAL NORMAL Platelet Morphology Comment NORMAL NORMAL Red Cell Morphology Comment NORMAL NORMAL Microbiology Date/Time Procedure Status Source Growth 08/18/16 19:10 Gram Stain - Final Complete Sputum Expectorated Sputum 08/18/16 19:10 Sputum Culture - Final Complete Sputum Expectorated Sputum HEAVY GROWTH NORMAL RESPIRATORY LIZ 08/18/16 19:10 Acid Fast Stain - Final Resulted Sputum Expectorated Sputum NO ACID FAST BACILLI SEEN 08/18/16 19:10 Mycobacterial Culture Resulted Sputum Expectorated Sputum Pending 08/18/16 20:45 Acid Fast Stain Received Sputum Expectorated Sputum Pending 08/18/16 20:45 Mycobacterial Culture Received Sputum Expectorated Sputum Pending 08/19/16 11:45 - Final Complete Stool Stool NO ENTERIC PATHOGENS DETECTED BY PCR... 08/19/16 11:45 Acid Fast Stain - Final Resulted Stool Stool NO ACID FAST BACILLI SEEN 08/19/16 11:45 Mycobacterial Culture Resulted Stool Stool Pending 08/19/16 11:45 Fungal Smear - Final Resulted Stool Stool NO FUNGAL ELEMENTS SEEN. 08/19/16 11:45 Fungal Culture - Preliminary Resulted Yeast Species 08/19/16 11:45 Cryptosporidium Exam - Final Complete Stool Stool NEGATIVE - NO CRYPTOSPORIDIUM ANTIGEN... 08/19/16 11:45 Giardia Antigen (LUISA) - Final Complete Stool Stool NEGATIVE - NO GIARDIA ANTIGEN DETECTE... 08/19/16 11:45 Legionella Antigen - Final Complete Urine Clean Catch PRESUMPTIVE NEGATIVE FOR LEGIONELLA P... 08/19/16 11:45 Streptococcus pneumoniae Antigen (M - Final Complete Urine Clean Catch PRESUMPTIVE NEGATIVE FOR STREPTOCOCCU... Imaging Last Impressions Chest X-Ray 08/20/16 0600 Signed Impressions: Service Date/Time: August 06:39 - CONCLUSION: No acute disease. Chuck Mckinley MD CT Angiography 08/18/16 0429 Signed Impressions: Service Date/Time: Thursday, August 18, 2016 05:45 - CONCLUSION: 1. There is weak opacification of the pulmonary arteries with the contrast bolus. This limits the evaluation of the smaller branches. No pulmonary emboli seen. 2. Tree in bud type appearance involving the upper lobes bilaterally consistent with an infectious etiology. 3. 5 mm pulmonary nodule within the right upper lobe. Current guidelines suggest a repeat CT of the thorax in 12 months to document stability. Jesse Cerna Jr., MD Physical Exam GENERAL: awake and alert, has flushed skin, NAD SKIN: Warm and dry. No generalized rash or ecchymosis. HEAD: Atraumatic. Normocephalic. No temporal or scalp tenderness. EYES: [place] conjunctivae, no petechia or hemorrhage. No scleral icterus. No injection or drainage. ENT: Nose without bleeding, or purulent drainage. Moist oral mucosa, no oral thrush noted. . NECK: Supple, nontender, no meningeal signs. CARDIOVASCULAR: Tachycardic. Regular rate and rhythm without murmurs, gallops, or rubs. RESPIRATORY: Better air movement, no wheezing, decreased L base. GASTROINTESTINAL: Abdomen soft, bowel sounds are present and normoactive. Non- tender, nondistended. Has abdominal striae. No hepato-splenomegaly, or palpable masses. No guarding. No rebound. MUSCULOSKELETAL: Extremities without clubbing, cyanosis, or edema. No joint effusion, or edema noted. Has good ROM. No calf tenderness. Negative Homans sign bilaterally. NEUROLOGICAL: Non-focal PSYCH: Normal affect, calm and cooperative LINE: PIV with no evidence of infection Assessment & Plan Remarks IMPRESSION Sepsis on presentation due to pulmonary process - better CAP, COPD exacerbation - CT with tree in bud, ?mycobacterial infection, ?bronchiectasis Has HIV risk factor Heavy smoking, and known regular ETOH ?allergy toPCN - has never really been told that he had a reaction to PCN; his parents are both allergic to PCN Diarrhea,, prob part of his sepsis RECOMMENDATION Change to po Abx Ceftin and Zithromax and give 7 days oral Abx Needs f-up with primary care Patient is clinically doing well from ID standpoint I will sign off He can be D/C from ID standpoint Jane Vargas MD August 21, 2016 15:14
[2016-08-21] MEDS: CEFUROXIME AXETIL 500 MG TAB PO SCH ×2 (16:15→20:36)
--- NOTE | 2016-08-21 19:15 | HHI.PR ---
Subjective Remarks Breathing better. No wheezing On Rocephin/Zithromax.Sputum is thick. No fever Objective Vital Signs Date Time Temp Pulse Resp B/P Pulse Ox O2 Delivery O2 Flow Rate FiO2 08/21/16 16:00 98.2 69 17 158/83 95 08/21/16 12:00 96.6 73 16 137/79 95 08/21/16 10:47 69 08/21/16 08:30 98 21 08/21/16 08:00 97.1 61 17 144/89 94 08/21/16 04:00 96.2 63 19 140/85 97 08/21/16 00:00 96.8 58 18 130/71 94 08/20/16 21:11 96 Nasal Cannula 3.00 08/20/16 20:07 72 08/20/16 20:00 97.4 89 19 148/82 97 I/O 08/20/16 08/20/16 08/20/16 08/21/16 08/21/16 08/21/16 07:00 15:00 23:00 07:00 15:00 23:00 Intake Total 240 ml 1301 ml 480 ml 240 ml 2130 ml Output Total 800 ml 1200 ml 600 ml 600 ml Balance -560 ml 101 ml -120 ml -360 ml 2130 ml Intake Oral 240 ml 1301 ml 480 ml 240 ml 2130 ml Output Urine Total 800 ml 1200 ml 600 ml 600 ml # Voids 3 # Bowel Movements 0 0 0 0 Result Diagram: 08/21/16 0610 08/19/16 0656 Objective Remarks This is a moderately overweight white male in distress. HEENT: Normocephalic. Pupils reactive. Tongue is moist. Nasal mucosa erythematous. Throat is injected. Neck: Supple. No venous distension. Trachea midline. No bruits. Chest: Equal movements with distant breath sounds with wheezes over both lung cuevas. Prolonged expirations. Heart: The heart sounds are irregular, no S2. No murmur. No S3. Abdomen: Soft, benign. No masses, no organomegaly or tenderness. The bowel sounds are active. Extremities: No edema Reflexes are 1+ with no gross motor deficits. Rectal: Exam is deferred. Assessment and Plan Assessment and Plan Impression. 1. Chronic bronchitis . 2. Pneumonia with reactive airways. 3. Probable atypical pneumonia 4. Poss Sleep Apnea Plan : 1. Cont Antibiotics as ordered. 2. Nebs qid , duoneb. 3. Solumedrol 40 mg IV q12h. 4. Labs in am 5. Await sputum studies. 6. Schedule bronchoscopy for Wednesday to evaluate upper lobe infiltrates Joshua Gasca MD August 21, 2016 19:14
[2016-08-21] MEDS: ZOLPIDEM TARTRATE 5 MG TAB PO PRN (20:40)
[2016-08-21] MEDS: LORazepam 1 MG TAB PO PRN (23:12)
[2016-08-22] VITALS (9 sets, daily range): BP systolic 135–158; BP diastolic 73–93; PULSE 57–82; RESP 18–20; TEMP 96–98; O2SAT 94–97
[2016-08-22] MEDS: RESP: ALBUTEROL 2.5 MG/IPRATROPIUM 0.5 MG NEB (SCH) INH ×2 (03:18→08:57)
[2016-08-22] MEDS: methylPREDNISolone SOD SUCC 40 MG/1 ML VIAL IV PUSH SCH ×2 (07:53→16:37)
[2016-08-22] MEDS: AZITHROMYCIN 250 MG TAB PO SCH (07:53)
[2016-08-22] MEDS: LISINOPRIL 10 MG TAB PO SCH (07:53)
[2016-08-22] MEDS: CEFUROXIME AXETIL 500 MG TAB PO SCH ×2 (07:53→21:53)
[2016-08-22] MEDS: BENZONATATE 100 MG CAP PO PRN ×2 (07:53→21:53)
[2016-08-22] MEDS: SODIUM CHLORIDE 0.9% FLUSH 10 ML FLUSH IV FLUSH SCH ×2 (07:53→21:54)
[2016-08-22] MEDS: ENOXAPARIN SODIUM 40 MG/0.4 ML SYRINGE SQ SCH (10:27)
--- NOTE | 2016-08-22 17:04 | HHI.PR ---
Subjective Remarks Follow-up sepsis/pneumonia/COPD exacerbation 08/22/16-patient complains of severe rib cage pain with coughing, currently afebrile. Requesting something to help him sleep tonight Objective Vitals Vital Signs Date Time Temp Pulse Resp B/P Pulse Ox O2 Delivery O2 Flow Rate FiO2 08/22/16 16:46 95 21 08/22/16 12:00 97.5 81 18 155/79 95 08/22/16 08:59 97 08/22/16 07:53 97.5 59 18 149/86 95 08/22/16 07:53 82 08/22/16 04:00 96.0 59 18 151/85 96 08/22/16 02:00 57 08/22/16 00:00 96.6 70 18 158/93 94 08/21/16 22:30 98 21 08/21/16 20:00 97.3 58 19 134/67 95 I/O 08/21/16 08/21/16 08/21/16 08/22/16 08/22/16 08/22/16 07:00 15:00 23:00 07:00 15:00 23:00 Intake Total 240 ml 2130 ml 480 ml 240 ml Output Total 600 ml Balance -360 ml 2130 ml 480 ml 240 ml Intake Oral 240 ml 2130 ml 480 ml 240 ml Output Urine Total 600 ml # Voids 3 3 2 # Bowel Movements 0 0 Result Diagram: 08/21/16 0610 08/19/16 0656 Imaging Last Impressions Chest X-Ray 08/20/16 0600 Signed Impressions: Service Date/Time: August 06:39 - CONCLUSION: No acute disease. Chuck Mckinley MD CT Angiography 08/18/16 0429 Signed Impressions: Service Date/Time: Thursday, August 18, 2016 05:45 - CONCLUSION: 1. There is weak opacification of the pulmonary arteries with the contrast bolus. This limits the evaluation of the smaller branches. No pulmonary emboli seen. 2. Tree in bud type appearance involving the upper lobes bilaterally consistent with an infectious etiology. 3. 5 mm pulmonary nodule within the right upper lobe. Current guidelines suggest a repeat CT of the thorax in 12 months to document stability. Jesse Cerna Jr., MD Objective Remarks GENERAL: NAD SKIN: Warm and dry. HEAD: Normocephalic. EYES: No scleral icterus. No injection or drainage. NECK: Supple, trachea midline. No JVD or lymphadenopathy. CARDIOVASCULAR: Regular rate and rhythm without murmurs, gallops, or rubs. RESPIRATORY: Breath sounds equal bilaterally. No accessory muscle use. GASTROINTESTINAL: Abdomen soft, non-tender, nondistended. MUSCULOSKELETAL: No cyanosis, or edema. BACK: Nontender without obvious deformity. No CVA tenderness. A/P Problem List: (1) COPD exacerbation ICD Code: J44.1 Status: Acute (2) Hypokalemia ICD Code: E87.6 Status: Acute (3) Hyponatremia ICD Code: E87.1 Status: Acute (4) Leukocytosis ICD Code: D72.829 Status: Acute (5) Tobacco abuse ICD Code: Z72.0 Status: Acute (6) GERD (gastroesophageal reflux disease) ICD Code: K21.9 Status: Acute (7) Pulmonary nodule, right ICD Code: R91.1 Status: Acute (8) Alcohol abuse ICD Code: F10.10 Status: Acute (9) Sepsis ICD Code: A41.9 Status: Acute Assessment and Plan 35-year-old man with Meets sepsis-resolved Dyspnea likely secondary to COPD exacerbation - Continue supplemental oxygen. - Pulmonology following, appreciate input. - Change methylprednisolone 40 mg every 12 hours. - Continue Duo Nebs. - Continue Azithromycin 500 mg PO daily and Ceftin - ID following, appreciate input. - HIV and Hepatitis profile negative. -Add ibuprofen when necessary for pain Pulmonary nodule, right upper lobe - CT Angiography with weak opacification of the pulmonary arteries with the contrast bolus. This limits the evaluation of the smaller branches. No pulmonary emboli seen. Tree in bud type appearance involving the upper lobes bilaterally consistent with an infectious etiology. 3. 5 mm pulmonary nodule within the right upper lobe. Radiology recommends follow-up CT in one year. - Pulmonary following, appreciate input and plan for bronchoscopy next week. Hypertension: Controlled. - Continue Lisinopril. Vasotec PRN. - ECHO reviewed ; EF 55-60%. Wall thickness and cavity size normal. Systolic function normal. Tobacco abuse: Encouraged cessation. Alcohol abuse: Encourage cessation. constipation; laxatives as needed. DVT prophylaxis: Lovenox. Chuck Larry MD August 22, 2016 17:04
[2016-08-22] MEDS: LORazepam 1 MG TAB PO PRN (17:35)
[2016-08-22] MEDS: IBUPROFEN 400 MG TAB PO PRN (17:35)
[2016-08-22] MEDS ORDERED: methylPREDNISolone SOD SUCC 40 MG/1 ML VIAL IV PUSH SCH (20:00)
[2016-08-22] MEDS: ZOLPIDEM TARTRATE 5 MG TAB PO PRN (21:53)
[2016-08-22] MEDS: ACETAMINOPHEN 325 MG TAB PO PRN (21:57)
[2016-08-22] MEDS: DOCUSATE SODIUM 100 MG CAP PO PRN (22:00)
[2016-08-23] VITALS (9 sets, daily range): BP systolic 138–159; BP diastolic 89–100; PULSE 55–84; RESP 16–19; TEMP 96.5–97.2; O2SAT 95–98
[2016-08-23] MEDS: IBUPROFEN 400 MG TAB PO PRN (02:40)
[2016-08-23] MEDS ORDERED: methylPREDNISolone SOD SUCC 40 MG/1 ML VIAL IV PUSH SCH (04:00)
[2016-08-23] MEDS: BENZONATATE 100 MG CAP PO PRN (05:17)
[2016-08-23] MEDS: LORazepam 1 MG TAB PO PRN ×3 (05:27→21:46)
[2016-08-23] MEDS: CEFUROXIME AXETIL 500 MG TAB PO SCH ×2 (08:38→21:46)
[2016-08-23] MEDS: AZITHROMYCIN 250 MG TAB PO SCH (08:38)
[2016-08-23] MEDS: LISINOPRIL 10 MG TAB PO SCH (08:38)
[2016-08-23] MEDS: SODIUM CHLORIDE 0.9% FLUSH 10 ML FLUSH IV FLUSH SCH ×2 (08:39→21:46)
[2016-08-23] MEDS: ENOXAPARIN SODIUM 40 MG/0.4 ML SYRINGE SQ SCH (08:39)
--- NOTE | 2016-08-23 11:42 | HHI.PR ---
Subjective Remarks Follow-up sepsis/pneumonia/COPD exacerbation 08/22/16-patient complains of severe rib cage pain with coughing, currently afebrile. Requesting something to help him sleep tonight 08/23/16-patient seen and examined, still with inadequate pain control. Complained of constipation as well. Objective Vitals Vital Signs Date Time Temp Pulse Resp B/P Pulse Ox O2 Delivery O2 Flow Rate FiO2 08/23/16 08:49 95 21 08/23/16 08:05 84 08/23/16 08:00 96.5 66 16 139/94 95 08/23/16 04:00 97.0 67 18 159/91 97 08/23/16 00:00 97.2 60 19 149/89 95 08/22/16 20:00 97.4 64 19 135/73 95 08/22/16 20:00 63 08/22/16 16:46 95 21 08/22/16 16:00 98.0 76 20 153/87 96 08/22/16 12:00 97.5 81 18 155/79 95 I/O 08/22/16 08/22/16 08/22/16 08/23/16 08/23/16 08/23/16 07:00 15:00 23:00 07:00 15:00 23:00 Intake Total 240 ml 1440 ml 240 ml Balance 240 ml 1440 ml 240 ml Intake Oral 240 ml 1440 ml 240 ml # Voids 2 8 3 Result Diagram: 08/21/16 0610 08/19/16 0656 Objective Remarks GENERAL: NAD SKIN: Warm and dry. HEAD: Normocephalic. EYES: No scleral icterus. No injection or drainage. NECK: Supple, trachea midline. No JVD or lymphadenopathy. CARDIOVASCULAR: Regular rate and rhythm without murmurs, gallops, or rubs. RESPIRATORY: Breath sounds equal bilaterally. No accessory muscle use. GASTROINTESTINAL: Abdomen soft, non-tender, nondistended. MUSCULOSKELETAL: No cyanosis, or edema. BACK: Nontender without obvious deformity. No CVA tenderness. A/P Problem List: (1) COPD exacerbation ICD Code: J44.1 Status: Acute (2) Hypokalemia ICD Code: E87.6 Status: Acute (3) Hyponatremia ICD Code: E87.1 Status: Acute (4) Leukocytosis ICD Code: D72.829 Status: Acute (5) Tobacco abuse ICD Code: Z72.0 Status: Acute (6) GERD (gastroesophageal reflux disease) ICD Code: K21.9 Status: Acute (7) Pulmonary nodule, right ICD Code: R91.1 Status: Acute (8) Alcohol abuse ICD Code: F10.10 Status: Acute (9) Sepsis ICD Code: A41.9 Status: Acute Assessment and Plan 35-year-old man with Meets sepsis-resolved Dyspnea likely secondary to COPD exacerbation - Continue supplemental oxygen. - Pulmonology following, appreciate input. - methylprednisolone 40 mg every 12 hours. - Continue Duo Nebs. Add guaifenesin with codeine - Continue Azithromycin 500 mg PO daily and Ceftin - ID following, appreciate input. - HIV and Hepatitis profile negative. -Discontinue ibuprofen and start Toradol IV Pulmonary nodule, right upper lobe - CT Angiography with weak opacification of the pulmonary arteries with the contrast bolus. This limits the evaluation of the smaller branches. No pulmonary emboli seen. Tree in bud type appearance involving the upper lobes bilaterally consistent with an infectious etiology. 3. 5 mm pulmonary nodule within the right upper lobe. Radiology recommends follow-up CT in one year. - Pulmonary following, appreciate input and plan for bronchoscopy next week. Hypertension: Controlled. - Continue Lisinopril. Vasotec PRN. - ECHO reviewed ; EF 55-60%. Wall thickness and cavity size normal. Systolic function normal. Tobacco abuse: Encouraged cessation. Alcohol abuse: Encourage cessation. constipation; laxatives as needed. DVT prophylaxis: Lovenox. Chuck Larry MD August 23, 2016 11:42
[2016-08-23] MEDS: KETOROLAC TROMETHAMINE 30 MG/ML (IVP) VIAL IV PUSH SCH ×3 (12:12→23:47)
[2016-08-23] MEDS: guaiFENesin/CODEINE SYRUP 200 MG/20 MG/10 ML CUP PO PRN ×3 (12:15→23:47)
[2016-08-23] MEDS ORDERED: LACTULOSE SYRUP 20 GM/30 ML CUP PO ONE (12:45)
[2016-08-23] MEDS ORDERED: DEXT 5%-NACL 0.45% 1000 ML INJ 1,000 ML IV SCH (14:09)
--- NOTE | 2016-08-23 14:09 | HHI.PR ---
Subjective Remarks Breathing better. No cough. Off o2 On Rocephin/Zithromax.Sputum is clear. No fever Objective Vital Signs Date Time Temp Pulse Resp B/P Pulse Ox O2 Delivery O2 Flow Rate FiO2 08/23/16 12:00 76 16 141/94 96 08/23/16 08:49 95 21 08/23/16 08:05 84 08/23/16 08:00 96.5 66 16 139/94 95 08/23/16 04:00 97.0 67 18 159/91 97 08/23/16 00:00 97.2 60 19 149/89 95 08/22/16 20:00 97.4 64 19 135/73 95 08/22/16 20:00 63 08/22/16 16:46 95 21 08/22/16 16:00 98.0 76 20 153/87 96 I/O 08/22/16 08/22/16 08/22/16 08/23/16 08/23/16 08/23/16 07:00 15:00 23:00 07:00 15:00 23:00 Intake Total 240 ml 1440 ml 240 ml Balance 240 ml 1440 ml 240 ml Intake Oral 240 ml 1440 ml 240 ml # Voids 2 8 3 Result Diagram: 08/21/16 0610 08/19/16 0656 Objective Remarks This is a moderately overweight white male in no distress. HEENT: Normocephalic. Pupils reactive. Tongue is moist. Nasal mucosa clear. Throat is clear Neck: Supple. No venous distension. Trachea midline. No bruits. Chest: Equal movements with distant breath sounds with clear lung cuevas. Prolonged expirations. Heart: The heart sounds are irregular, no S2. No murmur. No S3. Abdomen: Soft, benign. No masses, no organomegaly or tenderness. The bowel sounds are active. Extremities: No edema Reflexes are 1+ with no gross motor deficits. Rectal: Exam is deferred. Assessment and Plan Assessment and Plan Impression. 1. Chronic bronchitis . 2. Pneumonia with reactive airways. 3. Probable atypical pneumonia 4. Poss Sleep Apnea Plan : 1. Cont Antibiotics as ordered. 2. Nebs Bid , duoneb. 3. D/C Solumedrol 4. Add prednisone 20 mg daily 5. Coag in am 6. Schedule bronchoscopy for Wednesday to evaluate upper lobe infiltrates Joshua Gasca MD August 23, 2016 14:09
[2016-08-23] MEDS: ZOLPIDEM TARTRATE 5 MG TAB PO PRN (23:47)
[2016-08-24] VITALS (9 sets, daily range): BP systolic 123–141; BP diastolic 75–91; PULSE 63–75; RESP 16–20; TEMP 96–97.8; O2SAT 95–98
[2016-08-24] MEDS: KETOROLAC TROMETHAMINE 30 MG/ML (IVP) VIAL IV PUSH SCH ×4 (06:16→23:51)
[2016-08-24] MEDS: guaiFENesin/CODEINE SYRUP 200 MG/20 MG/10 ML CUP PO PRN ×3 (06:16→21:34)
[2016-08-24] MEDS: ENOXAPARIN SODIUM 40 MG/0.4 ML SYRINGE SQ SCH (10:00)
[2016-08-24] MEDS ORDERED: DO NOT ADM ANY ANTICOAGULANT DRUGS PRN (11:59)
[2016-08-24] MEDS ORDERED: PROPOFOL 200 MG/20 ML AMP IV ONE (12:00)
[2016-08-24] MEDS ORDERED: *RESP: ALBUTEROL 2.5 MG/3 ML NEB (PRN) PERIprocedural Use ONLY NEB ONE ×2 (12:00→12:15)
[2016-08-24] MEDS ORDERED: RESP: ALBUTEROL 2.5 MG/3 ML NEB (PRN) NEB (12:00)
--- NOTE | 2016-08-24 12:14 | RADRPT ---
EXAM DATE/TIME: 08/24/2016 12:02 [facility] COMPARISON: CHEST SINGLE AP, August 20, 2016, 6:39. INDICATIONS : Post bronchoscopy. MEDICAL HISTORY : Hypertension. Chronic obstructive pulmonary disease. Gastroesophageal reflux disease. SURGICAL HISTORY : Inguinal hernia repair. ENCOUNTER: Initial ACUITY: 1 day PAIN SCORE: Non-responsive. LOCATION: chest FINDINGS: A single view of the chest demonstrates the lungs to be symmetrically aerated without evidence of mas s, infiltrate or effusion. The cardiomediastinal contours are unremarkable. Osseous structures are intact. CONCLUSION: No acute disease. No significant change has occurred. Zac Spangler MD on August 24, 2016 at 12:11 Board Certified Radiologist. This report was verified electronically.
[2016-08-24] MEDS ORDERED: *morphine SULFATE 8 MG/ML PERIprocedure ONLY ONE (12:17)
[2016-08-24] MEDS: SODIUM CHLORIDE 0.9% FLUSH 10 ML FLUSH IV FLUSH SCH ×2 (12:52→19:51)
--- NOTE | 2016-08-24 13:14 | HHI.PR ---
Subjective Remarks Follow-up sepsis/pneumonia/COPD exacerbation 08/22/16-patient complains of severe rib cage pain with coughing, currently afebrile. Requesting something to help him sleep tonight 08/23/16-patient seen and examined, still with inadequate pain control. Complained of constipation as well. 08/24/16-patient seen and examined, s/p bronchoscopy and complains of shortness of breath Objective Vitals Vital Signs Date Time Temp Pulse Resp B/P Pulse Ox O2 Delivery O2 Flow Rate FiO2 08/24/16 12:30 100 18 128/64 97 Nasal Cannula 2 08/24/16 12:15 95 18 132/78 98 Nasal Cannula 2 08/24/16 11:58 97.6 90 18 106/76 97 Nasal Cannula 2 08/24/16 08:00 96.6 68 16 141/84 97 08/24/16 07:45 97 21 08/24/16 04:00 96.6 63 18 133/91 96 08/24/16 00:00 96.0 66 19 135/76 98 08/23/16 23:31 55 08/23/16 20:00 96.7 69 18 144/100 97 08/23/16 16:00 96.7 75 18 138/97 98 I/O 08/23/16 08/23/16 08/23/16 08/24/16 08/24/16 08/24/16 07:00 15:00 23:00 07:00 15:00 23:00 Intake Total 240 ml 720 ml 480 ml 300 ml Output Total 0 ml Balance 240 ml 720 ml 480 ml 300 ml Intake Oral 240 ml 720 ml 480 ml 0 ml IV Total 0 ml Other 300 ml Output Urine Total 0 ml Estimated Blood Loss 0 ml Other 0 ml # Voids 3 5 5 # Bowel Movements 1 Result Diagram: 08/21/16 0610 Imaging Last Impressions Chest X-Ray 08/24/16 0000 Signed Impressions: Service Date/Time: Wednesday, August 24, 2016 12:02 - CONCLUSION: No acute disease. No significant change has occurred. Zac pSangler MD CT Angiography 08/18/16 0429 Signed Impressions: Service Date/Time: Thursday, August 18, 2016 05:45 - CONCLUSION: 1. There is weak opacification of the pulmonary arteries with the contrast bolus. This limits the evaluation of the smaller branches. No pulmonary emboli seen. 2. Tree in bud type appearance involving the upper lobes bilaterally consistent with an infectious etiology. 3. 5 mm pulmonary nodule within the right upper lobe. Current guidelines suggest a repeat CT of the thorax in 12 months to document stability. Jesse Cerna Jr., MD Objective Remarks GENERAL: NAD SKIN: Warm and dry. HEAD: Normocephalic. EYES: No scleral icterus. No injection or drainage. NECK: Supple, trachea midline. No JVD or lymphadenopathy. CARDIOVASCULAR: Regular rate and rhythm without murmurs, gallops, or rubs. RESPIRATORY: Breath sounds decrease bilaterally. No accessory muscle use. GASTROINTESTINAL: Abdomen soft, non-tender, nondistended. MUSCULOSKELETAL: No cyanosis, or edema. BACK: Nontender without obvious deformity. No CVA tenderness. A/P Problem List: (1) COPD exacerbation ICD Code: J44.1 Status: Acute (2) Hypokalemia ICD Code: E87.6 Status: Acute (3) Hyponatremia ICD Code: E87.1 Status: Acute (4) Leukocytosis ICD Code: D72.829 Status: Acute (5) Tobacco abuse ICD Code: Z72.0 Status: Acute (6) GERD (gastroesophageal reflux disease) ICD Code: K21.9 Status: Acute (7) Pulmonary nodule, right ICD Code: R91.1 Status: Acute (8) Alcohol abuse ICD Code: F10.10 Status: Acute (9) Sepsis ICD Code: A41.9 Status: Acute (10) Atypical pneumonia ICD Code: J18.9 Status: Acute Assessment and Plan 35-year-old man with Meets sepsis-resolved Dyspnea likely secondary to COPD exacerbation Atypical pneumonia - Continue supplemental oxygen. - Pulmonology following, appreciate input. Currently on by mouth prednisone - s/p methylprednisolone 40 mg every 12 hours. - Continue Duo Nebs. guaifenesin with codeine - Continue Azithromycin 500 mg PO daily and Ceftin - ID following, appreciate input. - HIV and Hepatitis profile negative. -On Toradol IV Pulmonary nodule, right upper lobe - CT Angiography with weak opacification of the pulmonary arteries with the contrast bolus. This limits the evaluation of the smaller branches. No pulmonary emboli seen. Tree in bud type appearance involving the upper lobes bilaterally consistent with an infectious etiology. 3. 5 mm pulmonary nodule within the right upper lobe. Radiology recommends follow-up CT in one year. - Pulmonary following, appreciate input and s/p bronchoscopy 08/24/16 pending biopsy and cytology report. Hypertension: Controlled. - Continue Lisinopril. Vasotec PRN. - ECHO reviewed ; EF 55-60%. Wall thickness and cavity size normal. Systolic function normal. Tobacco abuse: Encouraged cessation. Alcohol abuse: Encourage cessation. constipation; laxatives as needed. DVT prophylaxis: Lovenox. Chuck Larry MD August 24, 2016 13:13
[2016-08-24] MEDS: CEFUROXIME AXETIL 500 MG TAB PO SCH ×2 (14:06→19:50)
[2016-08-24] MEDS: predniSONE 20 MG TAB PO SCH (14:06)
[2016-08-24] MEDS: AZITHROMYCIN 250 MG TAB PO SCH (14:06)
[2016-08-24] MEDS: LISINOPRIL 10 MG TAB PO SCH (14:06)
--- NOTE | 2016-08-24 16:35 | MP ---
cc: ANAILLIA GASCA DATE OF SURGERY 08/24/16 PROCEDURE Fibrotic bronchoscopy with brushings, washings. SURGEON Dr. Marco Gasca PREOPERATIVE DIAGNOSIS Bilateral upper lobe infiltrates. POSTOPERATIVE DIAGNOSIS Bilateral upper lobe infiltrates. ANESTHESIA General. PROCEDURE AND FINDINGS The patient was intubated under general anesthesia, following this Olympus IT 180 bronchoscope was used to visualize the bronchi. The scope was advanced via the endotracheal tube into the trachea. The trachea and adan appeared normal. The scope was then advanced into the right mainstem and right upper lobe segmental bronchi. These bronchi demonstrated no gross endobronchial lesions but there was moderate endobronchitis with mucosal edema and mucoid secretions. These were suctioned out. Brushings were done for micro and cytology and saline washings lavage were done. The scope was also advanced into the right middle and right lower lobe segmental bronchi. These bronchi demonstrated few mucoid secretions and mild endobronchitis. Saline washings were done. The scope was also advanced into the left mainstem and left upper lobe segmental bronchi. These bronchi demonstrated mild endobronchitis with mucoid secretions but no endobronchial lesions were seen. Saline washings were done from here and lavage done from the upper lobe on the left side and the procedure was then terminated. The patient tolerated the procedure well. Analilia Gasca MD JVD/AD /11:53 AM /4:29 PM
[2016-08-24] MEDS: ZOLPIDEM TARTRATE 5 MG TAB PO PRN (23:50)
[2016-08-25] VITALS (9 sets, daily range): BP systolic 124–143; BP diastolic 68–89; PULSE 56–88; RESP 16–20; TEMP 96.2–98.3; O2SAT 95–98
[2016-08-25] MEDS: KETOROLAC TROMETHAMINE 30 MG/ML (IVP) VIAL IV PUSH SCH ×4 (05:27→23:44)
[2016-08-25] MEDS: guaiFENesin/CODEINE SYRUP 200 MG/20 MG/10 ML CUP PO PRN ×4 (05:27→23:43)
[2016-08-25] MEDS: AZITHROMYCIN 250 MG TAB PO SCH (09:51)
[2016-08-25] MEDS: LISINOPRIL 10 MG TAB PO SCH (09:51)
[2016-08-25] MEDS: predniSONE 20 MG TAB PO SCH (09:51)
[2016-08-25] MEDS: CEFUROXIME AXETIL 500 MG TAB PO SCH ×2 (09:51→20:33)
[2016-08-25] MEDS: ENOXAPARIN SODIUM 40 MG/0.4 ML SYRINGE SQ SCH (09:52)
[2016-08-25] MEDS: SODIUM CHLORIDE 0.9% FLUSH 10 ML FLUSH IV FLUSH SCH ×2 (09:54→20:33)
--- NOTE | 2016-08-25 12:05 | HHI.PR ---
Subjective Remarks Follow-up sepsis/pneumonia/COPD exacerbation 08/22/16-patient complains of severe rib cage pain with coughing, currently afebrile. Requesting something to help him sleep tonight 08/23/16-patient seen and examined, still with inadequate pain control. Complained of constipation as well. 08/24/16-patient seen and examined, s/p bronchoscopy and complains of shortness of breath 08/25/16-patient seen and examined, reports some improvement of shortness of breath as well as right anterior chest pain Objective Vitals Vital Signs Date Time Temp Pulse Resp B/P Pulse Ox O2 Delivery O2 Flow Rate FiO2 08/25/16 10:04 88 08/25/16 10:00 95 21 08/25/16 08:00 96.7 60 16 129/73 98 08/25/16 04:00 96.2 68 20 140/81 96 08/25/16 00:00 97.0 56 18 124/77 95 08/24/16 20:25 95 21 08/24/16 20:10 65 08/24/16 20:00 97.8 63 20 134/87 98 08/24/16 19:07 16 08/24/16 16:00 97.0 75 18 123/75 97 08/24/16 12:30 100 18 128/64 97 Nasal Cannula 2 08/24/16 12:15 95 18 132/78 98 Nasal Cannula 2 I/O 08/24/16 08/24/16 08/24/16 08/25/16 08/25/16 08/25/16 07:00 15:00 23:00 07:00 15:00 23:00 Intake Total 300 ml 360 ml 480 ml Output Total 0 ml Balance 300 ml 360 ml 480 ml Intake Oral 0 ml 360 ml 480 ml IV Total 0 ml Other 300 ml Output Urine Total 0 ml Estimated Blood Loss 0 ml Other 0 ml # Voids 5 4 2 2 Result Diagram: 08/21/16 0610 Objective Remarks GENERAL: NAD SKIN: Warm and dry. HEAD: Normocephalic. EYES: No scleral icterus. No injection or drainage. NECK: Supple, trachea midline. No JVD or lymphadenopathy. CARDIOVASCULAR: Regular rate and rhythm without murmurs, gallops, or rubs. RESPIRATORY: Breath sounds decrease bilaterally. No accessory muscle use. GASTROINTESTINAL: Abdomen soft, non-tender, nondistended. MUSCULOSKELETAL: No cyanosis, or edema. BACK: Nontender without obvious deformity. No CVA tenderness. Procedures Status post bronchoscopy 08/24/16 A/P Problem List: (1) COPD exacerbation ICD Code: J44.1 Status: Acute (2) Hypokalemia ICD Code: E87.6 Status: Acute (3) Hyponatremia ICD Code: E87.1 Status: Acute (4) Leukocytosis ICD Code: D72.829 Status: Acute (5) Tobacco abuse ICD Code: Z72.0 Status: Acute (6) GERD (gastroesophageal reflux disease) ICD Code: K21.9 Status: Acute (7) Pulmonary nodule, right ICD Code: R91.1 Status: Acute (8) Alcohol abuse ICD Code: F10.10 Status: Acute (9) Sepsis ICD Code: A41.9 Status: Acute (10) Atypical pneumonia ICD Code: J18.9 Status: Acute Assessment and Plan 35-year-old man with Meets sepsis-resolved Dyspnea likely secondary to COPD exacerbation-improving Atypical pneumonia - Continue supplemental oxygen. - Pulmonology following, appreciate input. Currently on by mouth prednisone - s/p methylprednisolone 40 mg every 12 hours. - Continue Duo Nebs. guaifenesin with codeine - Continue Azithromycin 500 mg PO daily and Ceftin - ID following, appreciate input. - HIV and Hepatitis profile negative. -On Toradol IV -Status post bronchoscopy 08/24/16 pending report Pulmonary nodule, right upper lobe - CT Angiography with weak opacification of the pulmonary arteries with the contrast bolus. This limits the evaluation of the smaller branches. No pulmonary emboli seen. Tree in bud type appearance involving the upper lobes bilaterally consistent with an infectious etiology. 3. 5 mm pulmonary nodule within the right upper lobe. Radiology recommends follow-up CT in one year. - Pulmonary following, appreciate input and s/p bronchoscopy 08/24/16 pending biopsy and cytology report. Hypertension: Controlled. - Continue Lisinopril. Vasotec PRN. - ECHO reviewed ; EF 55-60%. Wall thickness and cavity size normal. Systolic function normal. Tobacco abuse: Encouraged cessation. Alcohol abuse: Encourage cessation. constipation; laxatives as needed. DVT prophylaxis: Lovenox. Chuck Larry MD August 25, 2016 12:04
[2016-08-25] MEDS: DOCUSATE SODIUM 100 MG CAP PO PRN (12:44)
[2016-08-25] MEDS ORDERED: LORazepam 0.5 MG TAB PO ONE (17:30)
--- NOTE | 2016-08-25 19:53 | HHI.PR ---
Subjective Remarks Breathing better. Bronch result shows Streptococcus. Off o2 On ceftin/Zithromax. Sputum is clear. No fever. AFB is negative so far on Bronchoscopy Objective Vital Signs Date Time Temp Pulse Resp B/P Pulse Ox O2 Delivery O2 Flow Rate FiO2 08/25/16 18:34 16 08/25/16 16:00 98.2 80 18 143/81 97 08/25/16 12:00 98.3 88 18 133/68 98 08/25/16 10:04 88 08/25/16 10:00 95 21 08/25/16 08:00 96.7 60 16 129/73 98 08/25/16 04:00 96.2 68 20 140/81 96 08/25/16 00:00 97.0 56 18 124/77 95 08/24/16 20:25 95 21 08/24/16 20:10 65 08/24/16 20:00 97.8 63 20 134/87 98 I/O 08/24/16 08/24/16 08/24/16 08/25/16 08/25/16 08/25/16 07:00 15:00 23:00 07:00 15:00 23:00 Intake Total 300 ml 360 ml 480 ml 2160 ml Output Total 0 ml Balance 300 ml 360 ml 480 ml 2160 ml Intake Oral 0 ml 360 ml 480 ml 2160 ml IV Total 0 ml Other 300 ml Output Urine Total 0 ml Estimated Blood Loss 0 ml Other 0 ml # Voids 5 4 2 2 8 Result Diagram: 08/21/16 0610 Objective Remarks This is a moderately overweight white male in no distress. HEENT: Normocephalic. Pupils reactive. Tongue is moist. Nasal mucosa clear. Throat is clear Neck: Supple. No venous distension. Trachea midline. No bruits. Chest: Equal movements with distant breath sounds with clear lung cuevas. Prolonged expirations. Heart: The heart sounds are regular, no S2. No murmur. No S3. Abdomen: Soft, benign. No masses, no organomegaly or tenderness. The bowel sounds are active. Extremities: No edema Reflexes are 1+ with no gross motor deficits. Rectal: Exam is deferred. Assessment and Plan Assessment and Plan Impression. 1. Chronic bronchitis . 2. Pneumonia with reactive airways. 3. Probable atypical pneumonia 4. Poss Sleep Apnea Plan : 1. D/C Zithromax 2. D/C , duoneb.and add Ventolin HFA , 2 puffs tid prn 3. Ceftin 500 mg bid X 7 days 4. Prednisone 20 mg daily and taper over 2 weeks 6. OK to go home in am, if AFB stains are negative and will F/U as OP in 2 weeks Joshua Gasca MD August 25, 2016 19:53
[2016-08-25] MEDS ORDERED: ALBUTEROL SULFATE 90 MCG/ACT HFA 18 GM INHALER INH PRN (20:00)
[2016-08-25] MEDS: ZOLPIDEM TARTRATE 5 MG TAB PO PRN (22:52)
[2016-08-26] VITALS: BP 128/75; PULSE 57; RESP 20; TEMP 97.3; O2SAT 97
[2016-08-26 04:00] VITALS: BP 119/78; PULSE 50; RESP 20; TEMP 97.5; O2SAT 97
[2016-08-26] MEDS: guaiFENesin/CODEINE SYRUP 200 MG/20 MG/10 ML CUP PO PRN (05:30)
[2016-08-26] MEDS: KETOROLAC TROMETHAMINE 30 MG/ML (IVP) VIAL IV PUSH SCH (05:31)
[2016-08-26 07:50] VITALS: BP 133/86; PULSE 74; RESP 20; TEMP 96.5; O2SAT 99
[2016-08-26 08:00] VITALS: PULSE 87
[2016-08-26] MEDS: CEFUROXIME AXETIL 500 MG TAB PO SCH (08:11)
[2016-08-26] MEDS: LISINOPRIL 10 MG TAB PO SCH (08:11)
[2016-08-26] MEDS: predniSONE 20 MG TAB PO SCH (08:11)
[2016-08-26] MEDS: SODIUM CHLORIDE 0.9% FLUSH 10 ML FLUSH IV FLUSH SCH (08:16)
[2016-08-26 11:00] VITALS: BP 145/84; PULSE 94; RESP 20; TEMP 97.6; O2SAT 98
[2016-08-26] MEDS ORDERED: PRED20 PO (11:05)
[2016-08-26] MEDS ORDERED: LISI10TA3 PO (11:05)
[2016-08-26] MEDS ORDERED: GUAI100S5 PO (11:05)
[2016-08-26] MEDS ORDERED: CEFT500T3 PO (11:05)
[2016-08-26] MEDS ORDERED: VENTAER INH (11:06)
--- NOTE | 2016-08-26 11:07 | HHI.PR ---
Subjective Remarks Follow-up sepsis/pneumonia/COPD exacerbation 08/22/16-patient complains of severe rib cage pain with coughing, currently afebrile. Requesting something to help him sleep tonight 08/23/16-patient seen and examined, still with inadequate pain control. Complained of constipation as well. 08/24/16-patient seen and examined, s/p bronchoscopy and complains of shortness of breath 08/25/16-patient seen and examined, reports some improvement of shortness of breath as well as right anterior chest pain 08/26/16-patient seen and examined denies any shortness of breath, chest pain. Ready for discharge home. Objective Vitals Vital Signs Date Time Temp Pulse Resp B/P Pulse Ox O2 Delivery O2 Flow Rate FiO2 08/26/16 07:50 96.5 74 20 133/86 99 08/26/16 04:00 97.5 50 20 119/78 97 08/26/16 00:00 97.3 57 20 128/75 97 08/25/16 20:18 79 08/25/16 20:00 97.3 76 20 137/89 98 08/25/16 18:34 16 08/25/16 16:00 98.2 80 18 143/81 97 08/25/16 12:00 98.3 88 18 133/68 98 I/O 08/25/16 08/25/16 08/25/16 08/26/16 08/26/16 08/26/16 07:00 15:00 23:00 07:00 15:00 23:00 Intake Total 480 ml 2160 ml 340 ml 220 ml Balance 480 ml 2160 ml 340 ml 220 ml Intake Oral 480 ml 2160 ml 340 ml 220 ml # Voids 2 8 2 2 # Bowel Movements 0 0 Imaging Last Impressions Chest X-Ray 08/24/16 0000 Signed Impressions: Service Date/Time: Wednesday, August 24, 2016 12:02 - CONCLUSION: No acute disease. No significant change has occurred. Zac Spangler MD CT Angiography 08/18/16 0429 Signed Impressions: Service Date/Time: Thursday, August 18, 2016 05:45 - CONCLUSION: 1. There is weak opacification of the pulmonary arteries with the contrast bolus. This limits the evaluation of the smaller branches. No pulmonary emboli seen. 2. Tree in bud type appearance involving the upper lobes bilaterally consistent with an infectious etiology. 3. 5 mm pulmonary nodule within the right upper lobe. Current guidelines suggest a repeat CT of the thorax in 12 months to document stability. Jesse Cerna Jr., MD Objective Remarks GENERAL: NAD SKIN: Warm and dry. HEAD: Normocephalic. EYES: No scleral icterus. No injection or drainage. NECK: Supple, trachea midline. No JVD or lymphadenopathy. CARDIOVASCULAR: Regular rate and rhythm without murmurs, gallops, or rubs. RESPIRATORY: Breath sounds decrease bilaterally. No accessory muscle use. GASTROINTESTINAL: Abdomen soft, non-tender, nondistended. MUSCULOSKELETAL: No cyanosis, or edema. BACK: Nontender without obvious deformity. No CVA tenderness. Procedures Status post bronchoscopy 08/24/16 A/P Problem List: (1) COPD exacerbation ICD Code: J44.1 Status: Acute (2) Hypokalemia ICD Code: E87.6 Status: Acute (3) Hyponatremia ICD Code: E87.1 Status: Acute (4) Leukocytosis ICD Code: D72.829 Status: Acute (5) Tobacco abuse ICD Code: Z72.0 Status: Acute (6) GERD (gastroesophageal reflux disease) ICD Code: K21.9 Status: Acute (7) Pulmonary nodule, right ICD Code: R91.1 Status: Acute (8) Alcohol abuse ICD Code: F10.10 Status: Acute (9) Sepsis ICD Code: A41.9 Status: Acute (10) Atypical pneumonia ICD Code: J18.9 Status: Acute Assessment and Plan 35-year-old man with Meets sepsis-resolved Dyspnea likely secondary to COPD exacerbation-improving Atypical pneumonia - Continue supplemental oxygen. - Pulmonology following, appreciate input. - s/p methylprednisolone 40 mg every 12 hours. Currently on by mouth prednisone - Continue Duo Nebs. guaifenesin with codeine - Continue Azithromycin 500 mg PO daily and Ceftin - ID following, appreciate input. - HIV and Hepatitis profile negative. AFP negative -On Toradol IV -Status post bronchoscopy 08/24/16 p Pulmonary nodule, right upper lobe - CT Angiography with weak opacification of the pulmonary arteries with the contrast bolus. This limits the evaluation of the smaller branches. No pulmonary emboli seen. Tree in bud type appearance involving the upper lobes bilaterally consistent with an infectious etiology. 3. 5 mm pulmonary nodule within the right upper lobe. Radiology recommends follow-up CT in one year. - Pulmonary following, appreciate input and s/p bronchoscopy 08/24/16 pending biopsy and cytology report. Hypertension: Controlled. - Continue Lisinopril. Vasotec PRN. - ECHO reviewed ; EF 55-60%. Wall thickness and cavity size normal. Systolic function normal. Tobacco abuse: Encouraged cessation. Alcohol abuse: Encourage cessation. constipation; laxatives as needed. DVT prophylaxis: Lovenox. Chuck Larry MD August 26, 2016 11:07
[2016-08-26] MEDS ORDERED: NYST1000 SWISH-SWAL (11:43)
--- NOTE | 2016-08-26 12:20 | HHI.DS ---
Discharge Summary Admission Date August 18, 2016 at 06:36 Discharge Date: August 26, 2016 Admitting Diagnosis COPD exacerbation (1) COPD exacerbation ICD Code: J44.1 (2) Hypokalemia ICD Code: E87.6 (3) Hyponatremia ICD Code: E87.1 (4) Leukocytosis ICD Code: D72.829 (5) Tobacco abuse ICD Code: Z72.0 (6) GERD (gastroesophageal reflux disease) ICD Code: K21.9 (7) Pulmonary nodule, right ICD Code: R91.1 (8) Alcohol abuse ICD Code: F10.10 (9) Sepsis ICD Code: A41.9 (10) Atypical pneumonia ICD Code: J18.9 Procedures Status post bronchoscopy 08/24/16 Brief History - From Admission The patient is a 35-year-old male who presented to the emergency department with 3-4 days of worsening dyspnea. He states that he got to the point where walking down the [place] to the bathroom made him feel like he could not catch his breath. He felt like his "suffocating". Denies chest pain, but does have some rib cage pain from coughing and labored breathing. States that the treatment he received in the ER helped significantly. He does still feel short of breath. He has been having fever, chills, night sweats. He has had diarrhea over the past couple days. He was diagnosed with COPD about 10 years ago, but has not followed up and has not been on any medications. He does not take medications for his blood pressure. He stopped taking psychiatric medications about a year ago and states "I feel better than I ever have". PE at Discharge GENERAL: NAD SKIN: Warm and dry. HEAD: Normocephalic. EYES: No scleral icterus. No injection or drainage. NECK: Supple, trachea midline. No JVD or lymphadenopathy. CARDIOVASCULAR: Regular rate and rhythm without murmurs, gallops, or rubs. RESPIRATORY: Breath sounds decrease bilaterally. No accessory muscle use. GASTROINTESTINAL: Abdomen soft, non-tender, nondistended. MUSCULOSKELETAL: No cyanosis, or edema. BACK: Nontender without obvious deformity. No CVA tenderness. Hospital Course Meets sepsis-resolved Dyspnea likely secondary to COPD exacerbation-improving Atypical pneumonia Patient was treated with IV antibiotics and subsequently switched to by mouth Ceftin 500 mg twice a day prior to discharge. Patient disease specialist was consulted so was pulmonary medicines for which patient had bronchoscopy. Pain management was provided accordingly. He was initially started on IV Solu- Medrol was subsequently switched to by mouth prednisone. Long-acting as well as short-acting bronchodilator were provided. Oxygen saturation was maintained above 92%. Hypertension: Controlled on lisinopril. Cardiology was consulted and a 2-D echo was obtained which revealed EF 55-60%. Wall thickness and cavity size normal. Systolic function normal. Tobacco abuse: Encouraged cessation. Alcohol abuse: Encourage cessation. Pt Condition on Discharge: Stable Discharge Disposition: Discharge Home Discharge Time: > 30 minutes Discharge Instructions DIET: Follow Instructions for: Heart Healthy Diet Activities you can perform: Regular-No Restrictions Follow up Referrals: PCP Follow-up - 1 Week Pulmonology with Joshua Gasca MD New Medications: Albuterol 18 GM Inh (Ventolin Hfa 18 GM Inh) 90 Mcg/Act Aer 2 PUFF INH Q6H PRN SHORTNESS OF BREATH #1 Ref 1 INHALER Cefuroxime (Ceftin) 500 Mg Tab 500 MG PO BID Infection #14 Ref 0 TAB Nystatin Liq (Nystatin Liq) 100,000 unit/ml Susp 5 ML SWISH-SWAL QID Infection #10 Ref 0 ML Guaifenesin-Codeine Liq (Guaifenesin-Codeine Liq) 100-10 Mg/5 Ml Soln 10 ML PO Q6H PRN cough #20 ML Lisinopril (Lisinopril) 10 Mg Tab 10 MG PO DAILY Blood Pressure Management #30 TAB Prednisone (Prednisone) 20 Mg Tab 20 MG PO DAILY Breathing Treatment #7 TAB Additional Information Over 30 minutes spent on discharge disposition addressing prognosis and discharge disposition Chuck Larry MD August 26, 2016 11:49
--- NOTE | 2016-09-01 09:21 | RSPPFT ---
DATE OF PROCEDURE: 08/19/16 COMMENTS: Spirometry demonstrates an FEV1 of 1.4 at 36% of predicted, FVC of 2.5 at 50%, FEF 25-75 is 22%. Post-bronchodilator study demonstrated improvement in the FEV1 and FVC. Lung volumes were not completed. Flow volume loops suggest an obstructive pattern. IMPRESSION: 1. Severe obstructive disease. 2. Significant response to use of bronchodilator indicating some reversibility.
== END 2016-08-26 11:48 | disposition home or self-care (01) | DRG 853 ==
LOC: NEPC 04:11 → NEDH 06:36 → HOCA 08:08
PROVIDERS: ADMIT Hospitalist; ATTEND Hospitalist
PROC: 0BB88ZX Excision of Left Upper Lobe Bronchus, Via Natural or Artificial Opening Endoscopic, Diagnostic (ICD-10-PCS; 2016-08-24)
PROC: 0B968ZX Drainage of Right Lower Lobe Bronchus, Via Natural or Artificial Opening Endoscopic, Diagnostic (ICD-10-PCS; 2016-08-24)
PROC: 0B958ZX Drainage of Right Middle Lobe Bronchus, Via Natural or Artificial Opening Endoscopic, Diagnostic (ICD-10-PCS; 2016-08-24)
PROC: 0B9G8ZX Drainage of Left Upper Lung Lobe, Via Natural or Artificial Opening Endoscopic, Diagnostic (ICD-10-PCS; principal; 2016-08-24 11:21)
DX: A41.9 Sepsis, unspecified organism (principal); J18.9 Pneumonia, unspecified organism; E87.1 Hypo-osmolality and hyponatremia; J44.1 Chronic obstructive pulmonary disease with (acute) exacerbation; I10 Essential (primary) hypertension; E87.6 Hypokalemia; K21.9 Gastro-esophageal reflux disease without esophagitis; R91.1 Solitary pulmonary nodule; F10.10 Alcohol abuse, uncomplicated; F31.9 Bipolar disorder, unspecified; F17.210 Nicotine dependence, cigarettes, uncomplicated; I51.7 Cardiomegaly; K59.00 Constipation, unspecified; E66.3 Overweight; Z68.36 Body mass index [BMI] 36.0-36.9, adult; Z23 Encounter for immunization
CPT/HCPCS: 71010; 71275; 76937; 80048; 80053; 80074; 80076; 81001; 82550; 82552; 83605; 83615; 83735; 83880; 84484; 85007; 85027; 85610; 85730; 86703; 87015; 87040; 87070; 87071; 87102; 87116; 87205; 87206; 87328; 87329; 87449; 87493; 87506; 87641; 87804; 90732; 93005; 93306; 94060; 94640; 94664; 96365; 96367; 96375; J0456; J0696; J1650; J1885; J2060; J2270; J2920; J2930; J3010; J3480; J7030; J7050; J7512; J7613; Q9967

== ENCOUNTER 2016-09-03 11:06 | Emergency (ER) | payer SELFPAY ==
[~2016-09-03] VITALS: Ht 175.3 cm; Wt 112.0 kg
[~2016-09-03 11:06] MED LIST changes: -ALLEGR; +CEFT500T3 PO; -ENVEGA PO; -FLUO0.012 TOP; +GUAI100S5 PO; +LISI10TA3 PO; +NYST1000 SWISH-SWAL; +PRED20 PO; +VENTAER INH
[2016-09-03 11:08] VITALS: BP 202/110; PULSE 114; RESP 20; TEMP 98.5; O2SAT 100
[2016-09-03] MEDS ORDERED: SODIUM CHLOR 0.9% 1000 ML INJ 1,000 ML IV SCH (12:16)
[2016-09-03] MEDS ORDERED: SODIUM CHLOR 0.9% 1000 ML INJ 1,000 ML IV ONE (12:16)
[2016-09-03 12:26] LABS: AUTOMATED NEUTROPHIL # 5.9 TH/MM3 (1.8-7.7); BASOPHIL # 0.1 TH/MM3 (0-0.2); BASOPHIL % 0.9 % (0.0-2.0); EOSINOPHIL # 0.1 TH/MM3 (0-0.4); EOSINOPHIL % 1.1 % (0.0-4.0); HEMATOCRIT 41.8 % (39.0-51.0); HEMO FLAGS DIFF FINAL; LYMPH % 22.3 % (9.0-44.0); MEAN CELL VOLUME 92.1 FL (80.0-100.0); MEAN CORPUSCULAR HEMOGLOBIN 31.7 PG (27.0-34.0); MEAN CORPUSCULAR HGB CONC 34.4 % (32.0-36.0); MONO % 10.5 % (0.0-8.0); NEUT % 65.2 % (16.0-70.0); PLATELET COUNT 157 TH/MM3 (150-450); RED BLOOD COUNT 4.54 MIL/MM3 (4.50-5.90); RED CELL DISTRIBUTION WIDTH 12.6 % (11.6-17.2)
[2016-09-03 12:30] VITALS: BP 151/85; PULSE 92; RESP 17; O2SAT 100
[2016-09-03] MEDS ORDERED: PROCHLORPERAZINE INJ 10 MG/2 ML VIAL IVP ONE (12:30)
[2016-09-03] MEDS ORDERED: SODIUM CHLORIDE 0.9% FLUSH 10 ML FLUSH IV FLUSH PRN (12:30)
[2016-09-03] MEDS ORDERED: diphenhydrAMINE HCL 50 MG/ML VIAL IVP ONE (12:30)
[2016-09-03 12:55] LABS: ALT (GPT) 29 U/L (12-78); ANION GAP 7 MEQ/L (5-15); AST (GOT) 19 U/L (15-37); BICARBONATE 25.9 MEQ/L (21.0-32.0); BLOOD UREA NITROGEN 8 MG/DL (7-18); CHLORIDE 105 MEQ/L (98-107); GLOMERULAR FILTRATION RATE 95 ML/MIN (>89); POTASSIUM 3.7 MEQ/L (3.5-5.1); SODIUM (NA) 138 MEQ/L (136-145)
[2016-09-03 12:59] LABS: ALKALINE PHOSPHATASE 70 U/L (45-117); TOTAL BILIRUBIN ADULT 0.5 MG/DL (0.2-1.0)
--- NOTE | 2016-09-03 13:00 | RADRPT ---
EXAM DATE/TIME: 09/03/2016 12:44 [facility] COMPARISON: No previous studies available for comparison. INDICATIONS : Cephalgia about a 10 days. RADIATION DOSE: 56.37 CTDIvol (mGy) MEDICAL HISTORY : Hypertension. Sepsis. SURGICAL HISTORY : None. ENCOUNTER: Initial ACUITY: 1 week PAIN SCALE: 4/10 LOCATION: cranial forehead TECHNIQUE: Multiple contiguous axial images were obtained of the head. Using automated exposure control and adj ustment of the mA and/or kV according to patient size, radiation dose was kept as low as reasonably a chievable to obtain optimal diagnostic quality images. FINDINGS: CEREBRUM: The ventricles are normal. No evidence of midline shift, mass lesion, hemorrhage or acute infarction . No extra-axial fluid collections are seen. POSTERIOR FOSSA: The cerebellum and brainstem demonstrate no acute finding. The 4th ventricle is midline. The cerebe llopontine angle is unremarkable. EXTRACRANIAL: Visualized sinuses are clear. SKULL: The calvaria is intact. No evidence of skull fracture. CONCLUSION: No acute intracranial abnormality identified. Clint Wallace MD on September 03, 2016 at 12:54 Board Certified Radiologist. This report was verified electronically.
--- NOTE | 2016-09-03 13:59 | PD ---
HPI Chief Complaint: Headache Time Seen by Provider: 11:25 Travel History International Travel<30 days: No Contact w/Intl Traveler<30days: No Traveled to known affect area: No History of Present Illness HPI 35-year-old male complains of headache bifrontal for about 1 week constant with an aching quality which she states is severe. He has had no numbness tingling weakness or loss of consciousness. He's had no fever. No visual change reported. He reports recent admission for 8 days due to COPD exacerbation with pneumonia/sepsis. In addition, he reports of total body arthralgias. No rash. A generalized state of fatigue and malaise is additionally reported. He was unable to fill his antibiotics upon discharge including prednisone and Ceftin. PFSH Past Medical History Arthritis: No Asthma: No Bipolar Disorder: Yes Anxiety: Yes Depression: Yes Heart Rhythm Problems: No Cancer: No Cardiovascular Problems: No High Cholesterol: Yes Chemotherapy: No Chest Pain: No Congestive Heart Failure: No COPD: Yes Cerebrovascular Accident: No Diminished Hearing: No GERD: Yes Genitourinary: No Hiatal Hernia: Yes Hypertension: Yes Kidney Stones: No Musculoskeletal: No Neurologic: No Psychiatric: Yes (bi-polar) Reproductive: No Respiratory: Yes Migraines: No Radiation Therapy: No Renal Failure: No Seizures: No Sickle Cell Disease: No Sleep Apnea: No Ulcer: No Past Surgical History Abdominal Surgery: No AICD: No Appendectomy: Yes Arteriovenous Shunt: No Cardiac Surgery: No Ear Surgery: No Endocrine Surgery: No Eye Surgery: No Genitourinary Surgery: No Gynecologic Surgery: No Insulin Pump: No Joint Replacement: No Oral Surgery: Yes (wisdem teeth) Pacemaker: No Thoracic Surgery: No Other Surgery: Yes (hernia) Social History Alcohol Use: Yes (quit 08/21/16) Tobacco Use: Yes (1/2 ppd) Substance Use: Yes (hx cocaine) Allergies-Medications (Allergen,Severity, Reaction): Coded Allergies: Penicillin (Verified Allergy, Severe, UNKNOWN, 09/03/16) Abilify (Verified Allergy, Mild, 09/03/16) involuntary muscle movements *MDRO Multi-Drug Resistant Organism (Verified Adverse Reaction, Unknown, ) MRSA PCR screen NEGATIVE 08/18/16 & 08/20/16 Cleared per Infection Control MRSA (arm)-08/06/09 Reported Meds & Prescriptions Reported Meds & Active Scripts Active Nystatin Liq 100,000 unit/ml Susp 5 Ml SWISH-SWAL QID Ventolin Hfa 18 GM Inh (Albuterol Sulfate) 90 Mcg/Act Aer 2 Puff INH Q6H PRN Prednisone 20 Mg Tab 20 Mg PO DAILY Guaifenesin-Codeine Liq 100-10 Mg/5 Ml Soln 10 Ml PO Q6H PRN Lisinopril 10 Mg Tab 10 Mg PO DAILY Review of Systems Except as stated in HPI: all other systems reviewed are Neg General / Constitutional: No: Fever Physical Exam Narrative GENERAL: 35-year-old male well-nourished well-developed SKIN: Focused skin assessment warm/dry. HEAD: Atraumatic. Normocephalic. EYES: Pupils equal and round. No scleral icterus. No injection or drainage. ENT: No nasal bleeding or discharge. Mucous membranes pink and moist. NECK: Trachea midline. No JVD. Normal range of motion. Supple. CARDIOVASCULAR: Regular rate and rhythm. No murmur appreciated. RESPIRATORY: No accessory muscle use. Clear to auscultation. Breath sounds equal bilaterally. GASTROINTESTINAL: Abdomen soft, non-tender, nondistended. Hepatic and splenic margins not palpable. MUSCULOSKELETAL: No obvious deformities. No clubbing. No cyanosis. No edema. NEUROLOGICAL: Awake and alert. No obvious cranial nerve deficits. Motor grossly within normal limits. Normal speech. PSYCHIATRIC: Appropriate mood and affect; insight and judgment normal. Data Data Last Documented VS Vital Signs Date Time Temp Pulse Resp B/P Pulse Ox O2 Delivery O2 Flow Rate FiO2 09/03/16 12:30 92 17 151/85 100 Room Air 09/03/16 11:08 98.5 Vital signs reviewed Orders Complete Blood Count With Diff (09/03/16 12:16) Comprehensive Metabolic Panel (09/03/16 12:16) Iv Access Insert/Monitor (09/03/16 12:16) Ecg Monitoring (09/03/16 12:16) Oximetry (09/03/16 12:16) Sodium Chlor 0.9% 1000 Ml Inj (Ns 1000 M (09/03/16 12:16) Sodium Chloride 0.9% Flush (Ns Flush) (09/03/16 12:30) Ct Brain W/O Iv Contrast(Rout) (09/03/16 12:16) Prochlorperazine Inj (Compazine Inj) (09/03/16 12:30) Diphenhydramine Inj (Benadryl Inj) (09/03/16 12:30) Sodium Chlor 0.9% 1000 Ml Inj (Ns 1000 M (09/03/16 12:16) Labs Laboratory Tests Test 09/03/16 11:55 White Blood Count 9.0 TH/MM3 Red Blood Count 4.54 MIL/MM3 Hemoglobin 14.4 GM/DL Hematocrit 41.8 % Mean Corpuscular Volume 92.1 FL Mean Corpuscular Hemoglobin 31.7 PG Mean Corpuscular Hemoglobin 34.4 % Concent Red Cell Distribution Width 12.6 % Platelet Count 157 TH/MM3 Mean Platelet Volume 9.9 FL Neutrophils (%) (Auto) 65.2 % Lymphocytes (%) (Auto) 22.3 % Monocytes (%) (Auto) 10.5 % Eosinophils (%) (Auto) 1.1 % Basophils (%) (Auto) 0.9 % Neutrophils # (Auto) 5.9 TH/MM3 Lymphocytes # (Auto) 2.0 TH/MM3 Monocytes # (Auto) 0.9 TH/MM3 Eosinophils # (Auto) 0.1 TH/MM3 Basophils # (Auto) 0.1 TH/MM3 CBC Comment DIFF FINAL Differential Comment Sodium Level 138 MEQ/L Potassium Level 3.7 MEQ/L Chloride Level 105 MEQ/L Carbon Dioxide Level 25.9 MEQ/L Anion Gap 7 MEQ/L Blood Urea Nitrogen 8 MG/DL Creatinine 0.91 MG/DL Estimat Glomerular Filtration 95 ML/MIN Rate Random Glucose 119 MG/DL Calcium Level 9.0 MG/DL Total Bilirubin 0.5 MG/DL Aspartate Amino Transf 19 U/L (AST/SGOT) Alanine Aminotransferase 29 U/L (ALT/SGPT) Alkaline Phosphatase 70 U/L Total Protein 7.1 GM/DL Albumin 3.3 GM/DL [facility] Medical Decision Making Medical Screen Exam Complete: Yes Emergency Medical Condition: Yes Medical Record Reviewed: Yes Differential Diagnosis Electrolyte imbalance, anemia, renal failure, rheumatologic disease, Lyme disease, gonococcal arthritis Narrative Course CBC & BMP Diagram 09/03/16 11:55 LFTs normal Last [address] 09/03/16 1216 Signed Impressions: Service Date/Time: August 12:44 - CONCLUSION: No acute intracranial abnormality identified. Clint Wallace MD The patient is resting comfortably and feels better, is alert and in no distress. The patients results and examination findings were discussed. The repeat examination is unremarkable and benign. The history, exam, diagnostic testing, and current condition do not suggest any significant pathology to warrant further testing, continued ED treatment, admission, or surgical evaluation at this point. The vital signs have been stable. The patient does not have uncontrollable pain, intractable vomiting, or other significant symptoms. The patient's condition is stable and appropriate for discharge. The patient will pursue further outpatient evaluation with a primary care physician or other designated or consulting physician as indicated in the discharge instructions. The patient expressed understanding and was agreeable with this plan. Diagnosis Primary Impression: Headache Qualified Code: R51 - Nonintractable headache, unspecified chronicity pattern , unspecified headache type Additional Impressions: Arthralgia Qualified Code: M25.50 - Arthralgia, unspecified joint Malaise and fatigue Referrals: [facility] 2 days Primary Care Physician 2 days Additional Instructions: You have a choice when it comes to health care, and we are glad that you chose [facility]. Hopefully, we have met your expectations on today's visit. You are welcome to return to [facility] at any time, as we are committed to meeting the health care needs of our community. Med/Other Pt SpecificInfo: No Change to Meds Disposition: 01 DISCHARGE HOME Condition: Stable Al Graahm MD September 03, 2016 13:59
[2016-09-03] MEDS ORDERED: DEXAMETHASONE SOD PHOS 4 MG/ML VIAL IM ONE (14:15)
[2016-09-03 14:35] VITALS: BP 161/94
== END 2016-09-03 14:36 | disposition home or self-care (01) ==
LOC: NEPD 11:06
DX: R51 Headache (principal); M25.50 Pain in unspecified joint; R53.83 Other fatigue; R53.81 Other malaise
CPT/HCPCS: 70450; 80053; 85025; 96372; 96374; 96375; 99285; J0780; J1100; J1200; J7030

== ENCOUNTER 2017-02-09 19:32 | Observation (INO) | payer SELFPAY ==
[~2017-02-09] VITALS: Ht 177.8 cm; Wt 116.0 kg
[~2017-02-09 19:32] MED LIST changes: -CEFT500T3 PO
[2017-02-09 19:33] VITALS: BP 181/116; PULSE 134; RESP 18; TEMP 98.6; O2SAT 99
--- NOTE | 2017-02-09 19:38 | PD ---
Physical Exam Date Seen by Provider: Feb 09, 2017 Time Seen by Provider: 19:36 Narrative 36-year-old white male presents to emergency department with complains of increased blood pressure as well as increased heart rate. He's been feeling sick for the past week. He has noticed some fluttering in his chest as well as elevated heart beat. Today he has noted some tingling and tightness in his left upper arm down into his fingers. Some nausea and lightheadedness. No diaphoresis. No shortness of breath or wheezing. Symptoms are moderate. Vital signs reviewed. Pt waiting for bed placement. Data Data Last Documented VS Vital Signs Date Time Temp Pulse Resp B/P (MAP) Pulse Ox O2 Delivery O2 Flow Rate FiO2 02/09/17 19:33 98.6 134 18 181/116 (137) 99 Room Air [facility] Medical Record Reviewed: No Supervised Visit with DEB: Joshua Small Feb 09, 2017 19:38
--- NOTE | 2017-02-09 19:38 | PD ---
Physical Exam Date Seen by Provider: Feb 09, 2017 Time Seen by Provider: 19:36 Narrative 36-year-old white male presents to emergency department with complains of increased blood pressure as well as increased heart rate. He's been feeling sick for the past week. He has noticed some fluttering in his chest as well as elevated heart beat. Today he has noted some tingling and tightness in his left upper arm down into his fingers. Some nausea and lightheadedness. No diaphoresis. No shortness of breath or wheezing. Symptoms are moderate. Vital signs reviewed. Pt waiting for bed placement. Data Data Last Documented VS Vital Signs Date Time Temp Pulse Resp B/P (MAP) Pulse Ox O2 Delivery O2 Flow Rate FiO2 02/09/17 19:33 98.6 134 18 181/116 (137) [address] [facility] Medical Record Reviewed: No Supervised Visit with DEB: Joshua Small Feb 09, 2017 19:38
--- NOTE | 2017-02-09 19:38 | PD ---
Physical Exam Date Seen by Provider: Feb 09, 2017 Time Seen by Provider: 19:36 Narrative 36-year-old white male presents to emergency department with complains of increased blood pressure as well as increased heart rate. He's been feeling sick for the past week. He has noticed some fluttering in his chest as well as elevated heart beat. Today he has noted some tingling and tightness in his left upper arm down into his fingers. Some nausea and lightheadedness. No diaphoresis. No shortness of breath or wheezing. Symptoms are moderate. Vital signs reviewed. Pt waiting for bed placement. Data Data Last Documented VS Vital Signs Date Time Temp Pulse Resp B/P (MAP) Pulse Ox O2 Delivery O2 Flow Rate FiO2 02/09/17 19:33 98.6 134 18 181/116 (137) 99 Room Air [facility] Medical Record Reviewed: No Supervised Visit with DEB: Joshua Small Feb 09, 2017 19:38
[2017-02-09 19:46] VITALS: BP 181/111; PULSE 120; RESP 24; O2SAT 100
[2017-02-09] MEDS ORDERED: SODIUM CHLORIDE 0.9% FLUSH 10 ML FLUSH IVF PRN (20:00)
[2017-02-09 20:09] VITALS: O2SAT 100
--- NOTE | 2017-02-09 20:12 | PD ---
HPI Chief Complaint: Cardiac Complaint Time Seen by Provider: 19:41 Travel History International Travel<30 days: No Contact w/Intl Traveler<30days: No Traveled to known affect area: No History of Present Illness HPI 36-year-old male complains of palpitations chest pain and left arm numbness and tingling. Onset 2 hours ago after he returned from shopping at [facility]. He has no shortness of breath. He took 2 Nikhil Aspirin about an hour prior to ER evaluation. Associated symptoms include lightheadedness. He noted that his blood pressure was higher than normal. He has a history of "prediabetes", hypertension, hyperlipidemia and tobaccoism. He denies drug abuse. He notes that his mother had a myocardial infarction in her late 40s. PFSH Past Medical History Arthritis: No Asthma: No Bipolar Disorder: Yes Anxiety: Yes Depression: Yes Heart Rhythm Problems: No Cancer: No Cardiovascular Problems: No High Cholesterol: Yes Chemotherapy: No Chest Pain: No Congestive Heart Failure: No COPD: Yes Cerebrovascular Accident: No Diminished Hearing: No GERD: Yes Genitourinary: No Hiatal Hernia: Yes Hypertension: Yes Kidney Stones: No Musculoskeletal: No Neurologic: No Psychiatric: Yes (bi-polar) Reproductive: No Respiratory: Yes Migraines: No Radiation Therapy: No Renal Failure: No Seizures: No Sickle Cell Disease: No Sleep Apnea: No Ulcer: No Tetanus Vaccination: Never Vaccinated Influenza Vaccination: Yes Past Surgical History Abdominal Surgery: No AICD: No Appendectomy: Yes Arteriovenous Shunt: No Cardiac Surgery: No Ear Surgery: No Endocrine Surgery: No Eye Surgery: No Genitourinary Surgery: No Gynecologic Surgery: No Insulin Pump: No Joint Replacement: No Oral Surgery: Yes (wisdem teeth) Pacemaker: No Thoracic Surgery: No Other Surgery: Yes (hernia) Social History Alcohol Use: Yes (occasional ) Tobacco Use: Yes (1/2- 1 pack ppd) Substance Use: Yes (hx cocaine) Allergies-Medications (Allergen,Severity, Reaction): Coded Allergies: penicillin G (Unverified Allergy, Severe, UNKNOWN, 02/09/17) aripiprazole (Unverified Allergy, Mild, 02/09/17) involuntary muscle movements quetiapine (Verified Allergy, Unknown, UNKNOWN, 02/09/17) *MDRO Multi-Drug Resistant Organism (Verified Adverse Reaction, Unknown, 02/09/17) MRSA PCR screen NEGATIVE 08/18/16 & 08/20/16 Cleared per Infection Control MRSA (arm)-11/15/08 Reported Meds & Prescriptions Reported Meds & Active Scripts Active Ventolin Hfa 18 GM Inh (Albuterol Sulfate) 90 Mcg/Act Aer 2 Puff INH Q6H PRN Guaifenesin-Codeine Liq 100-10 Mg/5 Ml Soln 10 Ml PO Q6H PRN Lisinopril 10 Mg Tab 10 Mg PO DAILY Review of Systems Except as stated in HPI: all other systems reviewed are Neg General / Constitutional: No: Fever Cardiovascular: Positive: Chest Pain or Discomfort, Palpitations, No: Diaphoresis Respiratory: No: Shortness of Breath Gastrointestinal: Positive: Nausea Physical Exam Narrative GENERAL: 36 yo WNWD mildly anxious SKIN: Warm and dry. HEAD: Atraumatic. Normocephalic. EYES: Pupils equal and round. No scleral icterus. No injection or drainage. ENT: No nasal bleeding or discharge. Mucous membranes pink and moist. NECK: Trachea midline. No JVD. CARDIOVASCULAR: Tachycardia. Regular rhythm. RESPIRATORY: No accessory muscle use. Clear to auscultation. Breath sounds equal bilaterally. GASTROINTESTINAL: Abdomen soft, non-tender, nondistended. Hepatic and splenic margins not palpable. MUSCULOSKELETAL: Extremities without clubbing, cyanosis, or edema. No obvious deformities. NEUROLOGICAL: Awake and alert. No obvious cranial nerve deficits. Motor grossly within normal limits. Five out of 5 muscle strength in the arms and legs. Normal speech. PSYCHIATRIC: Appropriate mood and affect; insight and judgment normal. Data Data Last Documented VS Vital Signs Date Time Temp Pulse Resp B/P (MAP) Pulse Ox O2 Delivery O2 Flow Rate FiO2 02/09/17 20:28 167/99 (121) 172/103 (126) 02/09/17 20:09 100 Room Air 02/09/17 19:46 120 24 02/09/17 19:33 98.6 Orders Orders Electrocardiogram (02/09/17 19:59) Basic Metabolic Panel (Bmp) (02/09/17 19:59) Ckmb (Isoenzyme) Profile (02/09/17 19:59) Complete Blood Count With Diff (02/09/17 19:59) Magnesium (Mg) (02/09/17 19:59) Prothrombin Time / Inr (Pt) (02/09/17 19:59) Act Partial Throm Time (Ptt) (02/09/17 19:59) Troponin I (02/09/17 19:59) Chest, Single Ap (02/09/17 19:59) Ecg Monitoring (02/09/17 19:59) Bilateral Bp Monitoring (02/09/17 19:59) Iv Access Insert/Monitor (02/09/17 19:59) Oximetry (02/09/17 19:59) Oxygen Administration (02/09/17 19:59) Sodium Chloride 0.9% Flush (Ns Flush) (02/09/17 20:00) Drug Screen, Random Urine (02/09/17 20:10) CKMB (02/09/17 20:10) CKMB% (02/09/17 20:10) Place In Observation (02/09/17 22:08) Activity Bed Rest With Brp (02/09/17 22:08) Vital Signs (Adult) Q4H (02/09/17 22:08) Cardiac Rhythm .As Directed (02/09/17 22:08) Notify Dr: Other .PRN (02/09/17 22:08) Notify DrNayeli Parameters (02/09/17 22:08) Resp Oxygen Nasal Cannula (02/09/17 ) Ckmb (Isoenzyme) Profile (02/09/17 22:08) Ckmb (Isoenzyme) Profile (02/10/17 01:08) Troponin I (02/09/17 22:08) Troponin I (02/10/17 01:08) Electrocardiogram (02/09/17 22:08) Electrocardiogram (02/10/17 01:08) ^ Obtain (02/09/17 22:08) Sodium Chloride 0.9% Flush (Ns Flush) (02/09/17 22:15) Sodium Chloride 0.9% Flush (Ns Flush) (02/10/17 09:00) Acetaminophen (Tylenol) (02/09/17 22:15) Acetamin-Hydrocod 325-7.5 Mg (Widener 7.5 (02/09/17 22:15) Morphine Inj (Morphine Inj) (02/09/17 22:15) Ondansetron Inj (Zofran Inj) (02/09/17 22:15) Nitroglycerin Sl (Nitrostat Sl) (02/09/17 22:15) Aspirin (Aspirin) (02/10/17 09:00) Temazepam (Restoril) (02/09/17 22:15) Alprazolam (Xanax) (02/09/17 22:15) Billboard Installer / Telemetry DAHLIA.Q8H (02/09/17 22:08) Admit Order (Ed Use Only) (02/09/17 22:08) CKMB (02/10/17 00:20) CKMB% (02/10/17 00:20) Labs Laboratory Tests Test 02/09/17 20:10 02/09/17 20:25 White Blood Count 10.8 TH/MM3 Red Blood Count 5.07 MIL/MM3 Hemoglobin 16.5 GM/DL Hematocrit 48.3 % Mean Corpuscular Volume 95.1 FL Mean Corpuscular Hemoglobin 32.5 PG Mean Corpuscular Hemoglobin Concent 34.2 % Red Cell Distribution Width 13.5 % Platelet Count 207 TH/MM3 Mean Platelet Volume 9.4 FL Neutrophils (%) (Auto) 59.6 % Lymphocytes (%) (Auto) 29.3 % Monocytes (%) (Auto) 9.7 % Eosinophils (%) (Auto) 0.7 % Basophils (%) (Auto) 0.7 % Neutrophils # (Auto) 6.5 TH/MM3 Lymphocytes # (Auto) 3.2 TH/MM3 Monocytes # (Auto) 1.1 TH/MM3 Eosinophils # (Auto) 0.1 TH/MM3 Basophils # (Auto) 0.1 TH/MM3 CBC Comment DIFF FINAL Differential Comment Prothrombin Time 10.1 SEC Prothromb Time International Ratio 0.9 RATIO Activated Partial Thromboplast Time 25.7 SEC Blood Urea Nitrogen 7 MG/DL Creatinine 1.06 MG/DL Random Glucose 94 MG/DL Calcium Level 9.5 MG/DL Magnesium Level 2.0 MG/DL Sodium Level 133 MEQ/L Potassium Level 4.7 MEQ/L Chloride Level 100 MEQ/L Carbon Dioxide Level 22.5 MEQ/L Anion Gap 11 MEQ/L Estimat Glomerular Filtration Rate 80 ML/MIN Total Creatine Kinase 324 U/L Creatine Kinase MB 2.7 NG/ML Creatine Kinase MB % 0.8 % Troponin I LESS THAN 0.02 NG/ML Urine Opiates Screen NEG Urine Barbiturates Screen NEG Urine Amphetamines Screen NEG Urine Benzodiazepines Screen NEG Urine Cocaine Screen NEG Urine Cannabinoids Screen NEG MDM Medical Decision Making Medical Screen Exam Complete: Yes Emergency Medical Condition: Yes Medical Record Reviewed: Yes Differential Diagnosis NSTEMI, unstable angina, coronary vasospasm, PE, PTX, aortic dissection, pericarditis, myocarditis, endocarditis, PNA, esophageal disease, aneurysm, musculoskeletal etiologies, anxiety, cocaine/sympathomimetic abuse Narrative Course EKG shows sinus tachycardia with a rate of 110 ischemic injury pattern CBC & BMP Diagram 02/09/17 20:10 Calcium Level 9.5, Magnesium Level 2.0 Presentation could reflect coronary ischemia. Patient has multiple risk factors. The chest pain center evaluation is considered next most reasonable step for the patient. The patient is agreeable plan. Pt agreeable with plan. Diagnosis Primary Impression: Chest pain Qualified Codes: R07.9 - Chest pain, unspecified Admitting Information Admitting Physician Requests: Observation Al Graham MD Feb 09, 2017 20:12
[2017-02-09 20:28] VITALS: BP_SYST 167; BP_SYST 172; BP_DIAS 103; BP_DIAS 99
--- NOTE | 2017-02-09 20:45 | RADRPT ---
EXAM DATE/TIME: 02/09/2017 20:07 [facility] COMPARISON: CHEST SINGLE AP, August 24, 2016, 12:02. INDICATIONS : Palpitations. MEDICAL HISTORY : Chronic obstructive pulmonary disease. Diabetes mellitus type II. Hypertension. SURGICAL HISTORY : ENCOUNTER: Initial ACUITY: 1 week PAIN SCORE: 0/10 LOCATION: Bilateral chest FINDINGS: A single view of the chest demonstrates the lungs to be symmetrically aerated without evidence of mas s, infiltrate or effusion. The cardiomediastinal contours are unremarkable. Osseous structures are intact with moderate scoliosis of the thoracic spine. There is mild scarring at the left lung base. CONCLUSION: No acute disease. Elvis Gao MD on February 09, 2017 at 20:44 Board Certified Radiologist. This report was verified electronically.
[2017-02-09 20:48] LABS: AUTOMATED NEUTROPHIL # 6.5 TH/MM3 (1.8-7.7); BASOPHIL # 0.1 TH/MM3 (0-0.2); BASOPHIL % 0.7 % (0.0-2.0); EOSINOPHIL # 0.1 TH/MM3 (0-0.4); EOSINOPHIL % 0.7 % (0.0-4.0); HEMATOCRIT 48.3 % (39.0-51.0); HEMOGLOBIN 16.5 GM/DL (13.0-17.0); LYMPH % 29.3 % (9.0-44.0); LYMPHOCYTE # 3.2 TH/MM3 (1.0-4.8); MEAN CELL VOLUME 95.1 FL (80.0-100.0); MEAN CORPUSCULAR HEMOGLOBIN 32.5 PG (27.0-34.0); MEAN CORPUSCULAR HGB CONC 34.2 % (32.0-36.0); MEAN PLATELET VOLUME 9.4 FL (7.0-11.0); MONO % 9.7 % (0.0-8.0); MONOCYTE # 1.1 TH/MM3 (0-0.9); NEUT % 59.6 % (16.0-70.0); PLATELET COUNT 207 TH/MM3 (150-450); RED BLOOD COUNT 5.07 MIL/MM3 (4.50-5.90); RED CELL DISTRIBUTION WIDTH 13.5 % (11.6-17.2); WHITE BLOOD COUNT 10.8 TH/MM3 (4.0-11.0)
[2017-02-09 21:08] LABS: INTERNATIONAL NORMALIZED RATIO 0.9 RATIO; PROTHROMBIN TIME - PATIENT 10.1 SEC (9.8-11.6)
[2017-02-09 21:27] LABS: BICARBONATE 22.5 MEQ/L (21.0-32.0); BLOOD UREA NITROGEN 7 MG/DL (7-18); CALCIUM 9.5 MG/DL (8.5-10.1); CHLORIDE 100 MEQ/L (98-107); CREATININE 1.06 MG/DL (0.60-1.30); GLOMERULAR FILTRATION RATE 80 ML/MIN (>89); GLUCOSE,RANDOM 94 MG/DL (74-106); SODIUM (NA) 133 MEQ/L (136-145); TROPONIN I LESS THAN 0.02 NG/ML (0.02-0.05)
[2017-02-09] MEDS ORDERED: ACETAMINOPHEN 500 MG CPLT PO PRN (22:15)
[2017-02-09] MEDS ORDERED: ACETAMINOPHEN/HYDROcodone 325 MG/7.5 MG TAB PO PRN (22:15)
[2017-02-09] MEDS ORDERED: TEMAZEPAM 15 MG CAP PO PRN (22:15)
[2017-02-09] MEDS ORDERED: SODIUM CHLORIDE 0.9% FLUSH 10 ML FLUSH IV FLUSH PRN (22:15)
[2017-02-09] MEDS ORDERED: ALPRAZolam 0.25 MG TAB PO PRN (22:15)
[2017-02-09] MEDS ORDERED: MORPHINE SULFATE 4 MG/ML INJ IV PUSH PRN (22:15)
[2017-02-09] MEDS ORDERED: ONDANSETRON HCL 4 MG/2 ML VIAL IV PUSH PRN (22:15)
[2017-02-09] MEDS ORDERED: NITROGLYCERIN 0.4 MG SL 25 TABS/BTL SL PRN (22:15)
[2017-02-09 22:24] VITALS: O2SAT 97
[2017-02-09 22:46] VITALS: BP 162/104; PULSE 101; TEMP 98.5; O2SAT 98
[2017-02-09] MEDS ORDERED: cloNIDine HCL 0.2 MG TAB PO PRN (23:00)
[2017-02-10 00:42] VITALS: BP 122/68
[2017-02-10 01:12] LABS: TROPONIN I LESS THAN 0.02 NG/ML (0.02-0.05)
[2017-02-10 03:15] VITALS: BP 126/73; PULSE 94; RESP 18; TEMP 98.4; O2SAT 98
[2017-02-10 04:04] LABS: TROPONIN I LESS THAN 0.02 NG/ML (0.02-0.05)
[2017-02-10 07:42] VITALS: BP 119/81; PULSE 72; RESP 19; TEMP 97.4; O2SAT 99
--- NOTE | 2017-02-10 07:42 | HHI.HP ---
HPI Primary Care Physician No Primary Care Physician Chief Complaint Chest pain History of Present Illness 36-year-old male with history of hypertension, COPD, and current smoker presents to emergency room for further evaluation of palpitations and left arm numbness and tingling. Onset 2 days ago, worse episode last evening. Describes increased blood pressure, heart rate, and feelings of palpitations accompanied with left upper arm squeezing and left forearm and hand/fingertips numbness and tingling. Duration 3 hours. No associated symptoms of nausea, vomiting, shortness breath, or diaphoresis. No known precipitating or relieving factors. Ran out of lisinopril and currently does not have a PCP. Took his friend's Norvasc the last 3 days. Endorses similar left arm discomfort the last few months not as severe has yesterdays episode. Review of Systems General: No fatigue,weakness, fever, chills, or recent illness. Has been in his general state of health. Currently does not have a PCP. HEENT: No MÁRQUEZ CV: As stated above. No current CP, pressure, or palpitations. No known CAD. RESP: No SOB or wheezing. History of COPD, current smoker. Began smoking age 13. Each morning experiences chest congestion for a couple of hours, occasionally will take Mucinex and his inhaler to relieve symptoms. Frequently "coughs hard" and reports "pulling chest muscles due to coughing." Soreness generally "lasts 4 days after coughing hard." GI: No nausea, vomiting, or bowel changes. No change in appetite, no unintentional weight gain or weight loss. : No dysuria EXT: No lower leg edema. Currently left fingertips tingling, discomfort in left arm resolved. No known past or current cervical injuries. MS: No discomfort or change in ROM. No injury, heavy lifting, or trauma. NEURO: No LOC or motor/sensory deficits PSYCH: No anxiety, depression, suicidal ideation. No situational stress. SKIN: No rashes, no concerning lesions Past Family Social History Allergies: Coded Allergies: penicillin G (Unverified Allergy, Severe, UNKNOWN, 02/09/17) aripiprazole (Unverified Allergy, Mild, 02/09/17) involuntary muscle movements quetiapine (Verified Allergy, Unknown, UNKNOWN, 02/09/17) *MDRO Multi-Drug Resistant Organism (Verified Adverse Reaction, Unknown, 02/09/17) MRSA PCR screen NEGATIVE 08/18/16 & 08/20/16 Cleared per Infection Control MRSA (arm)-11/15/08 Past Medical History COPD, hypertension, GERD Past Surgical History Appendectomy Reported Medications Reported Meds & Active Scripts Active Ventolin Hfa 18 GM Inh (Albuterol Sulfate) 90 Mcg/Act Aer 2 Puff INH Q6H PRN Lisinopril 10 Mg Tab 10 Mg PO DAILY Active Ordered Medications Current Medications Medications (Trade) Dose Ordered Sig/Danya Route Start Time Stop Time Status Last Admin (NS Flush) 2 ml UNSCH PRN IVF 02/09/17 20:00 (NS Flush) 2 ml UNSCH PRN IV FLUSH 02/09/17 22:15 (NS Flush) 2 ml BID IV FLUSH 02/10/17 09:00 (Tylenol) 500 mg Q4H PRN PO 02/09/17 22:15 (Ulysses 7.5-325 Mg) 1 tab Q4H PRN PO 02/09/17 22:15 (Morphine Inj) 2 mg Q4H PRN IV PUSH 02/09/17 22:15 (Zofran Inj) 4 mg Q6H PRN IV PUSH 02/09/17 22:15 (Nitrostat Sl) 0.4 mg Q5M PRN SL 02/09/17 22:15 (Aspirin) 325 mg DAILY PO 02/10/17 09:00 (Restoril) 15 mg HS PRN PO 02/09/17 22:15 (Xanax) 0.25 mg Q8H PRN PO 02/09/17 22:15 (Catapres) 0.2 mg Q6HR PRN PO 02/09/17 23:00 02/09/17 23:05 Family History Mother coronary stents in her mid 40s. Social History Known hypertension. Told he had hyperlipidemia, never placed on medications. Was told 3 years ago he was a "pre-diabetic." Current 1pack/daily smoker since age 13. Physical Exam Vital Signs Vital Signs Date Time Temp Pulse Resp B/P (MAP) Pulse Ox O2 Delivery O2 Flow Rate FiO2 02/10/17 03:15 98.4 94 18 126/73 (90) 98 02/10/17 00:42 122/68 (86) 02/09/17 22:46 98.5 101 162/104 (123) 98 02/09/17 22:30 02/09/17 22:24 97 21 02/09/17 20:28 167/99 (121) 172/103 (126) 02/09/17 20:09 100 Room Air 02/09/17 20:09 100 Room Air 02/09/17 19:46 120 24 181/111 (134) 100 Room Air 02/09/17 19:33 98.6 134 18 181/116 (137) 99 Room Air Physical Exam GENERAL: Alert WN, WD, NAD, pleasant, male HEAD: NC, AT EYES: Sclera clear, conjunctiva without injection, pupils equal and round ENT: Mucous membranes pink and moist NECK: Supple, no masses, trachea midline CV: RRR, without murmur, rub, gallop, no JVD, S1-S2 no S3-S4. RESP: Clear lungs throughout bilateral, no crackles, wheeze, rhonchi, symmetrical chest rise, nonlabored, able to speak in full sentences ABD: Soft, NT, ND, no masses, positive bowel tones, obese BACK: Scoliosis present EXT: Pulses +24, no dependent edema MS: Normal tone 4 extremities, no obvious deformities, full range of motion. Left lower chest wall tender with palpation. NEURO: CN II through CN XII grossly intact, motor strength 5/5, gait WNL PSYCH: A+O 3, pleasant affect, appropriate speech, appropriate mood and affect , insight and judgment SKIN: Normal turgor, normal texture, no lesions, no rashes, even hair distribution Laboratory Laboratory Tests Test 02/09/17 20:10 02/09/17 20:25 02/10/17 00:20 02/10/17 03:20 White Blood Count 10.8 Red Blood Count 5.07 Hemoglobin 16.5 Hematocrit 48.3 Mean Corpuscular Volume 95.1 Mean Corpuscular Hemoglobin 32.5 Mean Corpuscular Hemoglobin Concent 34.2 Red Cell Distribution Width 13.5 Platelet Count 207 Mean Platelet Volume 9.4 Neutrophils (%) (Auto) 59.6 Lymphocytes (%) (Auto) 29.3 Monocytes (%) (Auto) 9.7 Eosinophils (%) (Auto) 0.7 Basophils (%) (Auto) 0.7 Neutrophils # (Auto) 6.5 Lymphocytes # (Auto) 3.2 Monocytes # (Auto) 1.1 Eosinophils # (Auto) 0.1 Basophils # (Auto) 0.1 CBC Comment DIFF FINAL Differential Comment Prothrombin Time 10.1 Prothromb Time International Ratio 0.9 Activated Partial Thromboplast Time 25.7 Blood Urea Nitrogen 7 Creatinine 1.06 Random Glucose 94 Calcium Level 9.5 Magnesium Level 2.0 Sodium Level 133 Potassium Level 4.7 Chloride Level 100 Carbon Dioxide Level 22.5 Anion Gap 11 Estimat Glomerular Filtration Rate 80 Total Creatine Kinase 324 200 195 Creatine Kinase MB 2.7 1.8 1.8 Creatine Kinase MB % 0.8 Troponin I LESS THAN 0.02 LESS THAN 0.02 LESS THAN 0.02 Urine Opiates Screen NEG Urine Barbiturates Screen NEG Urine Amphetamines Screen NEG Urine Benzodiazepines Screen NEG Urine Cocaine Screen NEG Urine Cannabinoids Screen NEG Result Diagram: 02/09/17200902/09/172009 Imaging Last Impressions Chest X-Ray 02/09/171958 Signed Impressions: Service Date/Time: Thursday, February 09, 2017 20:07 - CONCLUSION: No acute disease. Elvis Gao MD Course EKG NSR, normal axis, no st t segment changes Caprini VTE Risk Assessment Caprini VTE Risk Assessment: No/Low Risk (score <= 1) Caprini Risk Assessment Model Point Value = 1 Point Value = 2 Point Value = 3 Point Value = 5 Age 41-60 Minor surgery BMI > 25 kg/m2 Swollen legs Varicose veins or History of unexplained or recurrent spontaneous Oral contraceptives or hormone replacement Sepsis (< 1 month) Serious lung disease, including pneumonia (< 1 month) Abnormal pulmonary function Acute myocardial infarction Congestive heart failure (< 1 month) History of inflammatory bowel disease Medical patient at bed rest Age 61-74 Arthroscopic surgery Major open surgery (> 45 min) Laparoscopic surgery (> 45 min) Malignancy Confined to bed (> 72 hours) Immobilizing plaster cast Central venous access Age >= 75 History of VTE Family history of VTE Factor V Leiden Prothrombin [id number] Lupus anticoagulant Anticardiolipin antibodies Elevated serum homocysteine Heparin-induced thrombocytopenia Other congenital or acquired thrombophilia Stroke (< 1 month) Elective arthroplasty Hip, pelvis, or leg fracture Acute spinal cord injury (< 1 month) Prophylaxis Regimen Total Risk Factor Score Risk Level Prophylaxis Regimen 0-1 Low Early ambulation 2 Moderate Order ONE of the following: *Sequential Compression Device (SCD) *Heparin 5000 units SQ BID 3-4 Higher Order ONE of the following medications: *Heparin 5000 units SQ TID *Enoxaparin/Lovenox 40 mg SQ daily (WT < 150 kg, CrCl > 30 mL/min) *Enoxaparin/Lovenox 30 mg SQ daily (WT < 150 kg, CrCl > 10-29 mL/min) *Enoxaparin/Lovenox 30 mg SQ BID (WT < 150 kg, CrCl > 30 mL/min) AND/OR *Sequential Compression Device (SCD) 5 or more Highest Order ONE of the following medications: *Heparin 5000 units SQ TID (Preferred with Epidurals) *Enoxaparin/Lovenox 40 mg SQ daily (WT < 150 kg, CrCl > 30 mL/min) *Enoxaparin/Lovenox 30 mg SQ daily (WT < 150 kg, CrCl > 10-29 mL/min) *Enoxaparin/Lovenox 30 mg SQ BID (WT < 150 kg, CrCl > 30 mL/min) AND *Sequential Compression Device (SCD) Assessment and Plan Assessment and Plan #1 Atypical chest pain-admitted to chest pain center. Ruled out with 3 sets of EKGs and cardiac enzymes. Seen and evaluated by Dr. Randolph Pompa. Proceeded with exercise stress test. If unremarkable, plans to discharge home later this morning. #2 Hypertension-continue lisinopril 10 mg, prescription with refills will be provided at discharge. Encouraged a low sodium diet, smoking cessation, the activity. Education provided on portions of tight blood pressure control and establishing with a PCP. #3 Tobacco use-strongly encouraged and stressed the importance of tobacco sensation. Instructed to him to quit smoking. Discussed for nearly 10 minutes importance of tobacco sensation especially with his reported respiratory symptoms and a.m. Discussed reported past diagnosis of prediabetes and importance of reducing sugar and sodas from his diet. Currently drinking 12 cans of soda, encouraged only drinking water. Diet education provided with time for questions. [facility] phone number given and placed in discharge paperwork. Instructed to call [place] to establish with a PCP for medical management and preventive medical care. Tamiko Rose Feb 10, 2017 07:41
[2017-02-10 08:00] VITALS: PULSE 82
[2017-02-10] MEDS ORDERED: SODIUM CHLORIDE 0.9% FLUSH 10 ML FLUSH IV FLUSH SCH (09:00)
[2017-02-10] MEDS ORDERED: ASPIRIN 325 MG TAB PO SCH (09:00)
[2017-02-10] MEDS ORDERED: LISINOPRIL 10 MG TAB PO SCH (09:00)
--- NOTE | 2017-02-10 09:01 | HHI.DCPOC ---
Discharge Care Plan Diagnosis: (1) Atypical chest pain (2) Tobacco abuse Goals to Promote Your Health * To prevent worsening of your condition and complications * To maintain your health at the optimal level Directions to Meet Your Goals Take your medications as prescribed Follow your dietary instruction Follow activity as directed Keep your appointments as scheduled Take your immunizations and boosters as scheduled If your symptoms worsen call your PCP, if no PCP go to Urgent Care Center or Emergency Room Smoking is Dangerous to Your Health. Avoid second hand smoke Call the 24-hour hour crisis hotline for domestic abuse at Tamiko Rose Feb 10, 2017 09:01
--- NOTE | 2017-02-10 09:01 | HHI.DCPOC ---
Discharge Care Plan Diagnosis: (1) Atypical chest pain (2) Tobacco abuse Goals to Promote Your Health * To prevent worsening of your condition and complications * To maintain your health at the optimal level Directions to Meet Your Goals Take your medications as prescribed Follow your dietary instruction Follow activity as directed Keep your appointments as scheduled Take your immunizations and boosters as scheduled If your symptoms worsen call your PCP, if no PCP go to Urgent Care Center or Emergency Room Smoking is Dangerous to Your Health. Avoid second hand smoke Call the 24-hour hour crisis hotline for domestic abuse at Tamiko Rose Feb 10, 2017 09:01
--- NOTE | 2017-02-10 09:01 | HHI.DCPOC ---
Discharge Care Plan Diagnosis: (1) Atypical chest pain (2) Tobacco abuse Goals to Promote Your Health * To prevent worsening of your condition and complications * To maintain your health at the optimal level Directions to Meet Your Goals Take your medications as prescribed Follow your dietary instruction Follow activity as directed Keep your appointments as scheduled Take your immunizations and boosters as scheduled If your symptoms worsen call your PCP, if no PCP go to Urgent Care Center or Emergency Room Smoking is Dangerous to Your Health. Avoid second hand smoke Call the 24-hour hour crisis hotline for domestic abuse at Tamiko Rose Feb 10, 2017 09:01
[2017-02-10] MEDS ORDERED: VENTAER INH (09:54)
[2017-02-10] MEDS ORDERED: LISI10TA3 PO (09:54)
--- NOTE | 2017-02-10 11:40 | EKG ---
Date Performed: 02/10/2017 Time Performed: 03:23:23 PTAGE: 36 years EKG: Sinus rhythm BORDERLINE ECG PREVIOUS TRACING : 02/10/2017 00.21 Since previous tracing, no significant change noted DOCTOR: Randolph Pompa Interpretating Date/Time 02/10/2017 11:38:38
--- NOTE | 2017-02-10 11:41 | EKG ---
Date Performed: 02/10/2017 Time Performed: 00:21:41 PTAGE: 36 years EKG: Sinus rhythm BORDERLINE ECG PREVIOUS TRACING : 02/09/2017 19.43 Since previous tracing, no significant change noted DOCTOR: Randolph Pompa Interpretating Date/Time 02/10/2017 11:40:08
--- NOTE | 2017-02-10 11:43 | EKG ---
Date Performed: 02/09/2017 Time Performed: 19:43:44 PTAGE: 36 years EKG: SINUS TACHYCARDIA ABNORMAL RHYTHM ECG PREVIOUS TRACING : 08/18/2016 04.31 Since previous tracing, no significant change noted DOCTOR: Randolph Pompa Interpretating Date/Time 02/10/2017 11:41:36
--- NOTE | 2017-02-10 11:46 | TR ---
Date Performed: 02/10/2017 Time Performed: 08:02:02 DOCTOR: Randolph Pompa DRUG LIST: CLINICAL HISTORY: REASON FOR TEST: REASON FOR ENDING: OBSERVATION: CONCLUSION: Jeevan protocol completed. Stopped sec to exceeding target heart rate and leg fatigue . Maximum YH=169 Target HR Achieved=86.0% Maximum LI=826/98 Total Exercise Time=9:21. No reprod chest discomfort. Rare PVCs. No st t segment changes to sugg ischemia. Great exercise tolerance. Normal bp response. Recovery quick and unremarkable. COMMENTS: Patient exercised using the Jeevan protocol. No electrocardiographic changes were seen to suggest ischemia. Hemodynamic response to exercise was normal. No significant arrhythmia was prese nt.
--- NOTE | 2017-02-10 11:46 | TR ---
Date Performed: 02/10/2017 Time Performed: 08:02:02 DOCTOR: Randolph Pompa DRUG LIST: CLINICAL HISTORY: REASON FOR TEST: REASON FOR ENDING: OBSERVATION: CONCLUSION: Jeevan protocol completed. Stopped sec to exceeding target heart rate and leg fatigue . Maximum XK=673 Target HR Achieved=86.0% Maximum PM=462/98 Total Exercise Time=9:21. No reprod chest discomfort. Rare PVCs. No st t segment changes to sugg ischemia. Great exercise tolerance. Normal bp response. Recovery quick and unremarkable. COMMENTS: Patient exercised using the Jeevan protocol. No electrocardiographic changes were seen to suggest ischemia. Hemodynamic response to exercise was normal. No significant arrhythmia was prese nt.
--- NOTE | 2017-02-10 11:46 | TR ---
Date Performed: 02/10/2017 Time Performed: 08:02:02 DOCTOR: Randolph Pompa DRUG LIST: CLINICAL HISTORY: REASON FOR TEST: REASON FOR ENDING: OBSERVATION: CONCLUSION: Jeevan protocol completed. Stopped sec to exceeding target heart rate and leg fatigue . Maximum EQ=936 Target HR Achieved=86.0% Maximum VP=606/98 Total Exercise Time=9:21. No reprod chest discomfort. Rare PVCs. No st t segment changes to sugg ischemia. Great exercise tolerance. Normal bp response. Recovery quick and unremarkable. COMMENTS: Patient exercised using the Jeevan protocol. No electrocardiographic changes were seen to suggest ischemia. Hemodynamic response to exercise was normal. No significant arrhythmia was prese nt.
== END 2017-02-10 10:30 | disposition home or self-care (01) ==
LOC: NEPC 19:32 → NEDA 22:11 → INTOOBSV 22:11 → NEPHCDU 22:35 → UNDODISIN 02-10 10:30
PROVIDERS: ADMIT Internal Medicine Interventional Cardiology; ATTEND Internal Medicine Interventional Cardiology
DX: R07.89 Other chest pain (principal); R20.2 Paresthesia of skin; R42 Dizziness and giddiness; R11.0 Nausea; R00.2 Palpitations; J44.9 Chronic obstructive pulmonary disease, unspecified; F17.200 Nicotine dependence, unspecified, uncomplicated; K21.9 Gastro-esophageal reflux disease without esophagitis; R94.31 Abnormal electrocardiogram [ECG] [EKG]
CPT/HCPCS: 71010; 80048; 80307; 82550; 82552; 83735; 84484; 85025; 85610; 85730; 93005; 93017; 99285; G0378

== ENCOUNTER 2017-06-10 17:03 | Emergency (ER) | payer SELFPAY ==
[~2017-06-10] VITALS: Ht 175.3 cm; Wt 108.0 kg
[~2017-06-10 17:03] MED LIST changes: -GUAI100S5 PO; -NYST1000 SWISH-SWAL; -PRED20 PO
[2017-06-10 17:17] VITALS: BP 165/113; PULSE 100; RESP 18; TEMP 97.9; O2SAT 99
[2017-06-10] MEDS ORDERED: LAMO100T PO (18:49)
[2017-06-10] MEDS ORDERED: INVE1.5T IM (18:49)
[2017-06-10] MEDS ORDERED: METO25TA3 PO (18:49)
[2017-06-10] MEDS ORDERED: ONDANSETRON HCL 4 MG/2 ML VIAL IV PUSH ONE (19:30)
[2017-06-10] MEDS ORDERED: ACETAMINOPHEN 325 MG TAB PO ONE (19:30)
--- NOTE | 2017-06-10 19:41 | PD ---
HPI Chief Complaint: GI Complaint Time Seen by Provider: 19:23 Travel History International Travel<30 days: No Contact w/Intl Traveler<30days: No Traveled to known affect area: No History of Present Illness HPI 36-year-old male complains of low back pain, abdominal cramping, nausea and diarrhea. Patient states the symptoms started 3 days ago. Patient denies any headache. Patient denies any chest pain or shortness of breath. Patient denies fever chills. Patient denies any focal weakness and numbness of extremity. Patient denies any dysuria or frequency. Patient states that the low back pain aching pain localized to low back area. Patient denies any pain radiation. On a scale of 1-10 the pain is a 7. Patient also has complained of sore throat. Patient states that he was here in the past with diagnosis of sore throat. Patient states that he had intermittent sore throat and the symptoms get worse for the past several days. Patient denies any problems with swallowing. PFSH Past Medical History Arthritis: No Asthma: No Bipolar Disorder: Yes Anxiety: Yes Depression: Yes Heart Rhythm Problems: Yes (feels flutters) Cancer: No Cardiovascular Problems: Yes (cardiomegaly) High Cholesterol: Yes Chemotherapy: No Chest Pain: No Congestive Heart Failure: No COPD: Yes Cerebrovascular Accident: No Diminished Hearing: No GERD: Yes Genitourinary: No Hiatal Hernia: Yes Hypertension: Yes Kidney Stones: No Musculoskeletal: No Neurologic: No Psychiatric: Yes (bi-polar) Reproductive: No Respiratory: Yes Migraines: No Radiation Therapy: No Renal Failure: No Seizures: No Sickle Cell Disease: No Sleep Apnea: No Ulcer: No Tetanus Vaccination: Unknown Influenza Vaccination: Yes Past Surgical History Abdominal Surgery: No AICD: No Appendectomy: Yes Arteriovenous Shunt: No Cardiac Surgery: No Ear Surgery: No Endocrine Surgery: No Eye Surgery: No Genitourinary Surgery: No Gynecologic Surgery: No Insulin Pump: No Joint Replacement: No Oral Surgery: Yes (wisdom teeth) Pacemaker: No Thoracic Surgery: No Other Surgery: Yes (hernia) Family History Family Myocardial Infarction: Yes (mother) Social History Alcohol Use: No (QUIT SIX MONTHS AGO) Tobacco Use: Yes (1/2 pack ppd) Substance Use: No (hx cocaine) Allergies-Medications (Allergen,Severity, Reaction): Coded Allergies: penicillin G (Unverified Allergy, Severe, UNKNOWN, 06/10/17) aripiprazole (Unverified Allergy, Mild, 06/10/17) involuntary muscle movements quetiapine (Verified Allergy, Unknown, UNKNOWN, 06/10/17) *MDRO Multi-Drug Resistant Organism (Verified Adverse Reaction, Unknown, ) MRSA PCR screen NEGATIVE 08/18/16 & 08/20/16 Cleared per Infection Control MRSA (arm)-11/15/08 Reported Meds & Prescriptions Reported Meds & Active Scripts Active Reported Metoprolol Tartrate 25 Mg Tab 25 Mg PO BID Lamotrigine 100 Mg Tab 100 Mg PO HS Invega (Paliperidone ER) 1.5 Mg Tab 1.5 Mg IM MONTHLY Review of Systems General / Constitutional: No: Fever Eyes: No: Visual changes HENT: Positive: Sore Throat, No: Headaches Cardiovascular: No: Chest Pain or Discomfort Respiratory: No: Shortness of Breath Gastrointestinal: Positive: Nausea, Diarrhea, Abdominal Pain Genitourinary: No: Dysuria Musculoskeletal: No: Pain Skin: No Rash Neurologic: No: Weakness Psychiatric: No: Depression Endocrine: No: Polydipsia Hematologic/Lymphatic: No: Easy Bruising Physical Exam Narrative GENERAL: Well-nourished, well-developed patient. SKIN: Focused skin assessment warm/dry. HEAD: Normocephalic. EYES: No scleral icterus. No injection or drainage. Throat: Nonerythematous. NECK: Supple, trachea midline. No JVD or lymphadenopathy. No mass noted. CARDIOVASCULAR: Regular rate and rhythm without murmurs, gallops, or rubs. RESPIRATORY: Breath sounds equal bilaterally. No accessory muscle use. GASTROINTESTINAL: Abdomen soft, non-tender, nondistended. MUSCULOSKELETAL: No cyanosis, or edema. BACK: Patient has mild to moderate tenderness to palpation in the lumbar area, without obvious deformity. No CVA tenderness. Neurologic exam normal. Data Data Last Documented VS Vital Signs Date Time Temp Pulse Resp B/P (MAP) Pulse Ox O2 Delivery O2 Flow Rate FiO2 06/10/17 17:17 97.9 100 18 165/113 (130) 99 Orders Orders Complete Blood Count With Diff (06/10/17 19:30) Comprehensive Metabolic Panel (06/10/17 19:30) Lipase (06/10/17 19:30) Urinalysis - C+S If Indicated (06/10/17 19:30) Spine, Lumbar - Ltd (Ap & Lat) (06/10/17 19:30) Iv Access Insert/Monitor (06/10/17 19:30) Acetaminophen (Tylenol) (06/10/17 19:30) Ondansetron Inj (Zofran Inj) (06/10/17 19:30) MDM Medical Decision Making Medical Screen Exam Complete: Yes Emergency Medical Condition: Yes (Antibody 1 me to tell me that) Differential Diagnosis Differential diagnosis including viral syndrome, gastroenteritis, strep versus viral pharyngitis, gastritis, pancreatitis, colitis, UTI, pyelonephritis. Narrative Course 36-year-old male with sore throat, sore throat, low back pain, diarrhea, abdominal cramping. Patient states that he does not want any less abdominal x- ray done today. Patient wants to leave. Diagnosis Primary Impression: Pharyngitis Qualified Codes: J02.9 - Acute pharyngitis, unspecified Additional Impression: Viral syndrome Patient Instructions: General Instructions Additional Instructions: Tylenol as needed for aching pain. [id number] Imodium as needed for diarrhea. Follow-up with personal physician. Return if persistent problem was. Med/Other Pt SpecificInfo: No Change to Meds Disposition: 01 DISCHARGE HOME Condition: Stable Brian Alexander MD Jun 10, 2017 19:41
== END 2017-06-10 19:36 | disposition left against medical advice (07) ==
LOC: NEPD 17:03
DX: J02.9 Acute pharyngitis, unspecified (principal); B34.9 Viral infection, unspecified; I10 Essential (primary) hypertension; F17.200 Nicotine dependence, unspecified, uncomplicated
CPT/HCPCS: 99282